=== PATIENT | female | born 1940 | race Caucasian/White ===

== ENCOUNTER 2019-07-05 17:18 | Emergency (ER) | payer MEDICARE, OTHER ==
[~2019-07-05] VITALS: Ht 149.9 cm; Wt 58.5 kg
[~2019-07-05 17:18] MED LIST: BRIMONIDINE TAR10 ML OD; FLOVENT DISKU250 MCG INH; LEVOTHYROXINE75 MCG PO; MACROBID 100 M100 MG PO; PRILOSEC20 MG PO; PYRIDIUM200 MG PO
[2019-07-05] MEDS ORDERED: ERYTHROMYCIN1 GM OS (20:07)
== END 2019-07-05 20:16 | disposition home or self-care (01) ==
LOC: ED 17:18
DX: H11.32 Conjunctival hemorrhage, left eye (principal); E03.9 Hypothyroidism, unspecified; Z91.041 Radiographic dye allergy status; Z88.8 Allergy status to other drugs, medicaments and biological substances; Z88.1 Allergy status to other antibiotic agents; Z79.899 Other long term (current) drug therapy
CPT/HCPCS: 99283

== ENCOUNTER 2020-05-06 18:54 | Emergency (ER) | payer MEDICARE, OTHER ==
[~2020-05-06] VITALS: Ht 149.9 cm; Wt 59.0 kg
--- OUTSIDE RECORDS SUMMARY | ~2020-05-06 | XMS | Encounter Summary ---
Demographics + + + | Address | [address] | | | [place] [address] | + + + | Home Phone | | + + + | Preferred Language | Unknown | + + + | Marital Status | | + + + | Christian Affiliation | NRP | + + + | Race | White | + + + | Ethnic Group | Not or | + + + Author + + + | Author | [facility] | + + + | Organization | [facility] | + + + | Address | Unknown | + + + | Phone | Unavailable | + + + Support + + + + + | Name | Relationship | Address | Phone | + + + + + | Andrzej Campos | ECON | [address] | | | | | [place] | | | | | [address] | | + + + + + Care Team Providers + +------+ + | Care Bar Waiter/Waitress Name | Role | Phone | + +------+ + | Carlo Soto MD | PCP | | + +------+ + Reason for Visit + + + | Reason | Comments | + + + | Need To Cancel | | | Appointment | | + + + Encounter Details +--------+ + + + + | Date | Type | Department | Care Team | Description | +--------+ + + + + | 02/23/ | Telephone | [facility] | Gail Peralta, | Need To Cancel | | 2015 | | [facility] | ,PhD [address] | Appointment | | | | at [facility] [address] | [address] [place], [place] | | | | | Av Mailcode: [facility] | [address] | | | | | [facility] | [phone] | | | | | and [facility], | | | | | | Building | | | | | | Floor [facility] [place] | | | | | | [address] | | | | | | [phone] | | | +--------+ + + + + Social History + +-------+ +--------+------+ | Tobacco Use | Types | Packs/Day | Years | Date | | | | | Used | | + +-------+ +--------+------+ | Never Smoker | | | | | + +-------+ +--------+------+ + +---+---+---+ | Smokeless Tobacco: | | | | | Never Used | | | | + +---+---+---+ + + +---------+ + | Alcohol Use | Drinks/Week | oz/Week | Comments | + + +---------+ + | Yes | 7 Glasses of wine | 7.0 | | + + +---------+ + + + + | Sex Assigned at | Date Recorded | | | | + + + | Not on file | | + + + + + + + | Job Start Date | Occupation | Industry | + + + + | Not on file | Not on file | Not on file | + + + + + + + + | Travel History | Travel Start | Travel End | + + + + + + | No recent travel history available. | + + documented as of this encounter Plan of Treatment +--------+---------+ + + + | Date | Type | Specialty | Care Team | Description | +--------+---------+ + + + | 06/17/ | Office | Ophthalmology | Jeferson Villarreal MD | | | 2020 | Visit | | [address] | | | | | | [address] | | | | | | [place], [place] | | | | | | [address] | | | | | | [phone] | | | | | | | | +--------+---------+ + + + | 07/29/ | Office | Ophthalmology | Jeferson Villarreal MD | | | 2020 | Visit | | [address] | | [address] | [address] | | | | | | [place] | | | | | | [address] | | | | | | [phone] | | | | | | | | +--------+---------+ + + + documented as of this encounter Visit Diagnoses Not on filedocumented in this encounter"
--- OUTSIDE RECORDS SUMMARY | ~2020-05-06 | XMS | Encounter Summary ---
Demographics + + + | Address | [address] | | | [place] [address] | + + + | Home Phone | | + + + | Preferred Language | Unknown | + + + | Marital Status | | + + + | Denominational Affiliation | NRP | + + + | Race | White | + + + | Ethnic Group | Not or | + + + Author + + + | Author | [facility] | + + + | Organization | [facility] | + + + | Address | Unknown | + + + | Phone | Unavailable | + + + Support + + + + + | Name | Relationship | Address | Phone | + + + + + | Andrzej Campos | ECON | [address] [facility] [facility] | | | | | [place] | | | | | [address] | | + + + + + Care Team Providers + +------+ + | Care Lead Tinner Name | Role | Phone | + +------+ + | Carlo Soto MD | PCP | | + +------+ + Encounter Details +--------+ + + + + | Date | Type | Department | Care Team | Description | +--------+ + + + + | 08/27/ | Document-Sc | Health Information | Unknown . | | | 2016 | anned | Services [id number] | | | [address] | | | | | | Mailcode: [id number] | | | | | | [facility] | | | | | | [place], [place] | | | | | | [address] | | | | | | [phone] | | | +--------+ + + + [...] | Jeferson Villarreal MD | | | 2019 | Visit | | [address] | | | | | | [address] | | | | | | [place] | | | | | | [address] | | | | | | [phone] | | | | | | | | +--------+---------+ + + + | 07/29/ | Office | Ophthalmology | Jeferson Villarreal MD | | | 2020 | Visit | | [address] | | | | | | [place], [place] | | | | | | [address] | | | | | | [phone] | | | | | | | | +--------+---------+ + + + documented as of this encounter Visit Diagnoses Not on filedocumented in this encounter"
--- OUTSIDE RECORDS SUMMARY | ~2020-05-06 | XMS | Encounter Summary ---
Demographics + + + | Address | [address] | | | [place] [address] | + + + | Home Phone | | + + + | Preferred Language | Unknown | + + + | Marital Status | | + + + | Pentecostal Affiliation | NRP | + + + [...] | Andrzej Campos | ECON | [address] [facility] | | | | | [place] | | | | | [address] | | + + + + + Care Team Providers + +------+ + | Care Woods Rider Name | Role | Phone | + +------+ + | Carlo Soto MD | PCP | | + +------+ + Encounter Details +--------+ + + + + | Date | Type | Department | Care Team | Description | +--------+ + + + + | 10/19/ | Hospital | Registration [facility] | | | | 2015 | Encounter | [address] | | | | | | [place], | | | | | | [place] [address] | | | +--------+ + + + + Social History + +-------+ +--------+------+ | Tobacco Use | Types | Packs/Day | Years | Date | | | | | Used | | + +-------+ +--------+------+ | Never Assessed | | | | | + +-------+ +--------+------+ + + + | Sex Assigned at [...] + + documented as of this encounter Medications at Time of Discharge + + + +---------+ + + | Medication | Sig | Dispensed | Refills | Start | End Date | | | | | | Date | | + + + +---------+ + + | diclofenac 50 mg | Take 50 mg by mouth | | 0 | | | | oral tablet | two times daily. | | | | | + + + +---------+ + + | levothyroxine 75 | | | 0 | 08/10/20 | | | mcg oral tablet | | | | 15 | | + + + +---------+ + + documented as of this encounter [...] [address] | | | | | | [place] | | | | | | [address] | | | | | | [phone] | | | | | | | | +--------+---------+ + + + | 07/29/ | Office | Ophthalmology | Jeferson Villarreal MD | | | 2019 | Visit | | [address] | | | | | | [address] | | | | | | [place] [place], [place] | | | | | | [address] | | | | | | [phone] | | | | | | | | +--------+---------+ + + + documented as of this encounter Visit Diagnoses Not on filedocumented in this encounter"
--- OUTSIDE RECORDS SUMMARY | ~2020-05-06 | XMS | Encounter Summary ---
Demographics + + + | Address | [address] | | | [place] [address] | + + + | Home Phone | | + + + | Preferred Language | Unknown | + + + | Marital Status | | + + + | Druze Affiliation | NRP | + + + | Race | White | + + + | Ethnic Group | Not or | + + + Author + + + | Author | [facility] | + + + | Organization | [facility] | + + + | Address | Unknown | + + + | Phone | Unavailable | + + + Support + + + + + | Name | Relationship | Address | Phone | + + + + + | Andrzej Campos | ECON | [address] | | | | | [place] | | | | | [id number] | | + + + + + Care Team Providers + +------+ + | Care Commercial Loan Analyst Name | Role | Phone | + +------+ + | Carlo Soto MD | PCP | | + +------+ + Reason for Visit + + + | Reason | Comments | + + + | Follow-up visit | | + + + | AMD - Age-related | | | macular degeneration | | + + + Benefits Check (Routine) +--------+--------+ + + + + | Status | Reason | Specialty | Diagnoses / | Referred By | Referred To | | | | | Procedures | Contact | Contact | +--------+--------+ + + + + | Closed | | Ophthalmology | | Non-[facility] | Phil, | | | | | | Epic Dept | MD Horace | | | | | | | [address] | | | [address] | [address] | | | | | | | [place], [place] | | | | | | | [address] | | | | | | | Phone: | | | | | | | [phone] | | | | | | | Fax: | | | | | | | [phone] | +--------+--------+ + + + + Encounter Details +--------+---------+ + + + | Date | Type | Department | Care Team | Description | +--------+---------+ + + + | 01/10/ | Office | [facility] | Horace Tan MD | Nonexudative | | 2018 | Visit | [facility] | [address] | age-related macular | | | | [place] [address] | [address] | degeneration, | | | | [facility] | [place], [place] | bilateral, | | | | Clinic [place], | [address] | intermediate dry | | | | [place] [address] | [phone] | stage (Primary Dx); | | | | [phone] | | Exudative | | | | | | age-related macular | | | | | | degeneration of left | | | | | | eye with active | | | | |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 | | | | | | neovascularization | | | | | | ([facility]) | +--------+---------+ + + + Social History + +-------+ [...] + + documented as of this encounter Patient Instructions Patient Instructions Horace Tan MD - 01/10/2018 10:15 AM PSTReturn to clinic before sc hedule follow up for decreasing vision or distortion in your vision. Use AREDS or AREDS 2 vitamins as directed. Do not smoke. Use sunglasses when outdoors. Use Amsler Grid Your doctor has recommended using an Amsler grid to monitor your vision. Finding distortion in your vision with this grid can help catch disease before more damage is done to your eye . Often treating the disease at this stage can help save your vision. Use your usual reading glasses Hold this at your usual reading distance (around 14 inches from your face) Cover one eye (must test one eye at a time!) Fix your gaze on the black hopland in the center of the grid. Use your peripheral vision to examine (without looking around) whether any of the square s are crooked, missing, or blurred. Blink your eyes to make sure that your eyes are not dry (eyes that are drying out can ca use temporary changes in the Amsler grid). Use it every day. Call your doctor if you see any changes. documented in this encounter Progress Notes Horace Tan MD - 01/10/2018 10:15 AM PST [facility] Progress Note 01/10/2018 Assessment & Plan: 77 y.o. 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 Chief Complaint: Follow-up visit AMD - Age-related macular degeneration HPI: Dramatic change in distortion OD 2 weeks ago. OS stable.No new floaters or flashes of light. Current Outpatient Prescriptions (Ophthalmic Medications) Medication Sig CARBOXYMETHYLCELL/HYPROMELLOSE (GENTEAL GEL OPHT) Instill in eye as needed. COMBIGAN Instill into both eyes two times daily. PROPYLENE GLYCOL (SYSTANE BALANCE OPHT) Instill in eye as needed (BID to QID daily). Current Outpatient Prescriptions (Other) Medication Sig atorvastatin CHLORPHENIRAMINE MALEATE (CHLOR-TRIMETON ORAL) Take by mouth as needed. diclofenac potassium Take 50 mg by mouth two times daily. diphenhydrAMINE Take 25 mg by mouth as needed. DOXYLAMINE SUCCINATE ORAL Take by mouth as needed. fluticasone Inhale 1 puff by mouth as needed. levothyroxine metFORMIN Take by mouth. MULTIVITAMIN ORAL Take by mouth. RANITIDINE HCL (ZANTAC ORAL) Take by mouth once daily at bedtime. VIT A/C/E AC/ZNOX/CUPRIC OXIDE (EYE VITAMIN AND MINERALS ORAL) Take 1 tablet by mouth o nce daily. [employer] Capsules Past Medical History: Diagnosis Date Cataract Diabetes (HCC) Glaucoma Hypothyroid Osteoarthritis Osteoporosis Past Surgical History Procedure Laterality Date Caesarean section x3 Excision of gall bladder Family History Problem Relation Heart Disease Mother Macular degeneration Father Heart Disease Father Heart Disease Brother Cancer Neg Hx Social History Occupational History Not on file. Social History Main Topics Smoking status: Never Smoker Smokeless tobacco: Never Used Alcohol use 4.2 oz/week 7 Glasses of wine per week Drug use: No Sexual activity: Not on file Examination: See Ophthalmology Module Attestations: The lawn care technician, 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, is responsible for performing the f ollowing sections: RFV, ROS, PMH, PSH, SocHx, FH, Med list, Base Ophth Exam. The attending physician is responsible for the entire content of the note and has personall y performed the HPI and the physical examination HORACE TAN MD docum ented in this encounter Plan of Treatment +--------+---------+ + + + | Date | Type | Specialty | Care Team | Description | +--------+---------+ + + + | 06/17/ | Office | Ophthalmology | Horace Tan MD | | | 2019 | Visit | | [address] | | | | | | [address] | | | | | | [facility], [place] | | | | | | [address] | | | | | | [phone] | | | | | | | | +--------+---------+ + + + | 07/29/ | Office | Ophthalmology | Horace Tan MD | | | 2019 | Visit | | [address] | | | | | | [address] | | | | | | [facility], [place] | | | | | | [address] | | | | | | [phone] | | | | | | | | +--------+---------+ + + + documented as of this encounter Procedures + +--------+ + + + | Procedure Name | Priori | Date/Time | Associated Diagnosis | Comments | | | ty | | | | + +--------+ + + + | AVASTIN INJ - OS - | Routin | 01/10/2018 | Exudative | Results for this | | LEFT EYE | e | 11:46 AM | age-related macular | procedure are in the | | | | PST | degeneration of left | results section. | | | | | eye with active | | | | |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 | | | | | | neovascularization | | | | | | (HCC) | | + +--------+ + + + | OCT, RETINA | Routin | 01/10/2018 | Nonexudative | Results for this | | | e | 11:07 AM | age-related macular | procedure are in the | | | | PST | degeneration, | results section. | | | | | bilateral, | | | | | | intermediate dry | | | | | | stage | | + +--------+ + + + documented in this encounter Results OCT, RETINA (04/29/2020 3:56 PM PDT) + + + | Narrative | Performed At | + + + | [facility] | [facility] | | DocumentationRight EyeQuality: good Central macular thickness: | [facility] | | 272 Segmentation: accurate Left EyeQuality: good Central | | | macular thickness: 294 Segmentation: accurate Provider | | | DocumentationRight EyeContour: central atrophy Retinal findings: | | | RPE irregularity, Drusen Left EyeFluid and related findings: no | | | fluid, better Retinal findings: RPE irregularity, Drusen | | | | | |Left Eye | | |Quality: good | | | | | |Central macular thickness: 294 | | |Segmentation: accurate | | | | | | | | |Provider Documentation | | |Right Eye | | |Contour: central atrophy | | |Retinal findings: RPE irregularity, Drusen | | | | | | | | |Left Eye | | |Fluid and related findings: no fluid, better | | |Retinal findings: RPE irregularity, Drusen | | + + + + + + + + | Performing | Address | City/State/Zipcode | Phone Number | | Organization | | | | + + + + + | [facility] | [address] | [place] [address] | | | [facility] | [place]. | | | + + + + + OCT, RETINA (04/01/2020 11:32 AM PDT) + + + | Narrative | Performed At | + + + | [facility] | [facility] | | DocumentationRight EyeQuality: good Central macular thickness: | [facility] | | 324 Segmentation: accurate Left EyeQuality: good Central | | | macular thickness: 321 Segmentation: accurate Provider | | | DocumentationRight EyeContour: central atrophy Retinal findings: | | | RPE irregularity, Drusen Left EyeFluid and related findings: | | | SRF, worse Retinal findings: RPE irregularity, Drusen | | | | | |Left Eye | | |Quality: good | | | | | |Central macular thickness: 321 | | |Segmentation: accurate | | | | | | | | |Provider Documentation | | |Right Eye | | |Contour: central atrophy | | |Retinal findings: RPE irregularity, Drusen | | | | | | | | |Left Eye | | |Fluid and related findings: SRF, worse | | |Retinal findings: RPE irregularity, Drusen | | + + + + + + + + | Performing | Address | City/State/Zipcode | Phone Number | | Organization | | | | + + + + + | [facility] | [address] | [place] [address] | | | [facility] | [address]. | | | + + + + + OCT, RETINA (11/13/2019 12:16 PM PST) + + + | Narrative | Performed At | + + + | [facility] | [facility] | | DocumentationRight EyeCentral macular thickness: 274 Left | [facility] | | EyeCentral macular thickness: 321 Provider DocumentationRight | | | EyeContour: no central thickening, central atrophy Fluid and | | | related findings: no fluid, unchanged Retinal findings: | | | Subretinal scar Left EyeContour: no central thickening Fluid and | | | related findings: SRF, worse, IRF Retinal findings: Subretinal | | | scar Comments: early ORT formation, minimal SRF/IRF today | | | | | |Provider Documentation | | |Right Eye | | |Contour: no central thickening, central atrophy | | |Fluid and related findings: no fluid, unchanged | | |Retinal findings: Subretinal scar | | | | | | | | |Left Eye | | |Contour: no central thickening | | |Fluid and related findings: SRF, worse, IRF | | |Retinal findings: Subretinal scar | | |Comments: early ORT formation, minimal SRF/IRF today | | + + + + + + + + | Performing | Address | City/State/Zipcode | Phone Number | | Organization | | | | + + + + + | [facility] | [address] | [place] [address] | | | [facility]STITUTE | [place]. | | | + + + + + OCT, RETINA (09/18/2019 1:33 PM PST) + + + | Narrative | Performed At | + + + | [facility] | [facility] | | DocumentationRight EyeCentral macular thickness: 239 Left | [facility] | | EyeCentral macular thickness: 261 Provider DocumentationRight | | | EyeContour: no central thickening, central atrophy Fluid and | | | related findings: no fluid, unchanged Retinal findings: | | | Subretinal scar Left EyeContour: no central thickening Fluid and | | | related findings: better, no fluid Retinal findings: Subretinal | | | scar | | | | | |Provider Documentation | | |Right Eye | | |Contour: no central thickening, central atrophy | | |Fluid and related findings: no fluid, unchanged | | |Retinal findings: Subretinal scar | | | | | | | | |Left Eye | | |Contour: no central thickening | | |Fluid and related findings: better, no fluid | | |Retinal findings: Subretinal scar | | + + + + + + + + | Performing | Address | City/State/Zipcode | Phone Number | | Organization | | | | + + + + + | [facility] | [address] | [place] [address] | | | [facility] | [place]. | | | + + + + + OCT, RETINA (07/31/2019 4:49 PM PDT) + + + | Narrative | Performed At | + + + | [facility] | [facility] | | DocumentationRight EyeCentral macular thickness: 261 Left | [facility] | | EyeCentral macular thickness: 260 Provider DocumentationRight | | | EyeContour: no central thickening, central atrophy Fluid and | | | related findings: no fluid, unchanged Retinal findings: | | | Subretinal scar Left EyeContour: no central thickening Fluid and | | | related findings: better, no fluid Retinal findings: Subretinal | | | scar | | | | | |Provider Documentation | | |Right Eye | | |Contour: no central thickening, central atrophy | | |Fluid and related findings: no fluid, unchanged | | |Retinal findings: Subretinal scar | | | | | | | | |Left Eye | | |Contour: no central thickening | | |Fluid and related findings: better, no fluid | | |Retinal findings: Subretinal scar | | + + + + + + + + | Performing | Address | City/State/Zipcode | Phone Number | | Organization | | | | + + + + + | [facility] | [address] | [place] [address] | | | INSTITUTE | [address] | | | + + + + + OCT, RETINA (05/29/2019 2:54 PM PDT) + + + | Narrative | Performed At | + + + | [facility] | [facility] | | DocumentationRight EyeCentral macular thickness: 245 Left | [facility] | | EyeCentral macular thickness: 320 Provider DocumentationRight | | | EyeContour: no central thickening Fluid and related findings: | | | better, no fluid Retinal findings: Subretinal scar Left | | | EyeContour: no central thickening Fluid and related findings: | | | IRF, worse Retinal findings: Subretinal scar | | | | | | | | |Provider Documentation | | |Right Eye | | |Contour: no central thickening | | |Fluid and related findings: better, no fluid | | |Retinal findings: Subretinal scar | | | | | | | | |Left Eye | | |Contour: no central thickening | | |Fluid and related findings: IRF, worse | | |Retinal findings: Subretinal scar | | + + + + + + + + | Performing | Address | City/State/Zipcode | Phone Number | | Organization | | | | + + + + + | [facility] | [address] | [place] [address] | | | [facility] | [address]. | | | + + + + + OCT, RETINA (05/01/2019 11:49 AM PDT) + + + | Narrative | Performed At | + + + | [facility] | [facility] | | DocumentationRight EyeCentral macular thickness: 245 Left | [facility] | | EyeCentral macular thickness: 320 Provider DocumentationRight | | | EyeContour: no central thickening Fluid and related findings: | | | SRF, better Retinal findings: Subretinal scar Left EyeContour: | | | no central thickening Fluid and related findings: IRF, worse | | | Retinal findings: Subretinal scar | | | | | | | | |Provider Documentation | | |Right Eye | | |Contour: no central thickening | | |Fluid and related findings: SRF, better | | |Retinal findings: Subretinal scar | | | | | | | | |Left Eye | | |Contour: no central thickening | | |Fluid and related findings: IRF, worse | | |Retinal findings: Subretinal scar | | + + + + + + + + | Performing | Address | City/State/Zipcode | Phone Number | | Organization | | | | + + + + + | [facility] | [address] | [place] [address] | | | [facility] | [address]. | | | + + + + + HEATHER FLORES (03/13/2019 11:29 AM PDT) + + + | Narrative | Performed At | + + + | [facility] | [facility] | | DocumentationRight EyeCentral macular thickness: 238 Left | [facility] | | EyeCentral macular thickness: 284 Provider DocumentationRight | | | EyeContour: no central thickening Fluid and related findings: | | | sub-RPE fluid, SRF, worse Retinal findings: Subretinal scar Left | | | EyeContour: no central thickening Fluid and related findings: | | | IRF, unchanged Retinal findings: Subretinal scar | | | | | | | | |Provider Documentation | | |Right Eye | | |Contour: no central thickening | | |Fluid and related findings: sub-RPE fluid, SRF, worse | | |Retinal findings: Subretinal scar | | | | | | | | |Left Eye | | |Contour: no central thickening | | |Fluid and related findings: IRF, unchanged | | |Retinal findings: Subretinal scar | | + + + + + + + + | Performing | Address | City/State/Zipcode | Phone Number | | Organization | | | | + + + + + | [facility] | [address] | [place] [address] | | | [facility]STITUTE | [place]. | | | + + + + + OCT, RETINA (01/30/2019 11:39 AM PDT) + + + | Narrative | Performed At | + + + | [facility] | [facility] | | DocumentationRight EyeCentral macular thickness: 289 Left | [facility] | | EyeCentral macular thickness: 276 Provider DocumentationRight | | | EyeContour: no central thickening Fluid and related findings: | | | sub-RPE fluid, better Retinal findings: Subretinal scar Left | | | EyeContour: no central thickening Fluid and related findings: | | | IRF, unchanged Retinal findings: Subretinal scar | | | | | | | | |Provider Documentation | | |Right Eye | | |Contour: no central thickening | | |Fluid and related findings: sub-RPE fluid, better | | |Retinal findings: Subretinal scar | | | | | | | | |Left Eye | | |Contour: no central thickening | | |Fluid and related findings: IRF, unchanged | | |Retinal findings: Subretinal scar | | + + + + + + + + | Performing | Address | City/State/Zipcode | Phone Number | | Organization | | | | + + + + + | [facility] | [address] | [place] [address] | | | [facility] | [place]. | | | + + + + + OCT, RETINA (11/14/2018 11:44 AM PST) + + + | Narrative | Performed At | + + + | [facility] | [facility] | | DocumentationRight EyeCentral macular thickness: 259 Left | [facility] | | EyeCentral macular thickness: 264 Provider DocumentationRight | | | EyeContour: no central thickening Fluid and related findings: | | | sub-RPE fluid, better Left EyeContour: no central thickening | | | Fluid and related findings: IRF, worse | | |Central macular thickness: 264 | | | | | | | | |Provider Documentation | | |Right Eye | | |Contour: no central thickening | | |Fluid and related findings: sub-RPE fluid, better | | | | | | | | |Left Eye | | |Contour: no central thickening | | |Fluid and related findings: IRF, worse | | + + + + + + + + | Performing | Address | City/State/Zipcode | Phone Number | | Organization | | | | + + + + + | [facility] | [address] | [place] [address] | | | [facility]STITUTE | [place]. | | | + + + + + OCT, RETINA (09/26/2018 8:56 AM PST) + + + | Narrative | Performed At | + + + | [facility] | [facility] | | DocumentationRight EyeCentral macular thickness: 261 Left | [facility] | | EyeCentral macular thickness: 297 Provider DocumentationRight | | | EyeContour: no central thickening Fluid and related findings: | | | sub-RPE fluid, better Left EyeContour: no central thickening | | | Fluid and related findings: IRF, better | | |Central macular thickness: 297 | | | | | | | | |Provider Documentation | | |Right Eye | | |Contour: no central thickening | | |Fluid and related findings: sub-RPE fluid, better | | | | | | | | |Left Eye | | |Contour: no central thickening | | |Fluid and related findings: IRF, better | | + + + + + + + + | Performing | Address | City/State/Zipcode | Phone Number | | Organization | | | | + + + + + | [facility] | [address] | [place] [address] | | | [facility]STITUTE | [place]. | | | + + + + + OCT, RETINA (08/29/2018 12:07 PM PDT) + + + | Narrative | Performed At | + + + | [facility] | [facility] | | DocumentationRight EyeCentral macular thickness: 279 Left | [facility] | | EyeCentral macular thickness: 284 Provider DocumentationRight | | | EyeContour: no central thickening Fluid and related findings: | | | sub-RPE fluid, SRF, worse Left EyeContour: no central thickening | | | Fluid and related findings: IRF, worse | | |Central macular thickness: 284 | | | | | | | | |Provider Documentation | | |Right Eye | | |Contour: no central thickening | | |Fluid and related findings: sub-RPE fluid, SRF, worse | | | | | | | | |Left Eye | | |Contour: no central thickening | | |Fluid and related findings: IRF, worse | | + + + + + + + + | Performing | Address | City/State/Zipcode | Phone Number | | Organization | | | | + + + + + | [facility] | [address] | [place] [address] | | | INSTITUTE | [address] | | | + + + + + OCT, RETINA (08/01/2018 11:49 AM PDT) + + + | Narrative | Performed At | + + + | [facility] | [facility] | | DocumentationRight EyeCentral macular thickness: 273 Left | [facility] | | EyeCentral macular thickness: 276 Provider DocumentationRight | | | EyeContour: no central thickening Fluid and related findings: | | | sub-RPE fluid, unchanged Left EyeContour: no central thickening | | | Fluid and related findings: SRF, better | | |Central macular thickness: 276 | | | | | | | | |Provider Documentation | | |Right Eye | | |Contour: no central thickening | | |Fluid and related findings: sub-RPE fluid, unchanged | | | | | | | | |Left Eye | | |Contour: no central thickening | | |Fluid and related findings: SRF, better | | + + + + + + + + | Performing | Address | City/State/Zipcode | Phone Number | | Organization | | | | + + + + + | [facility] | [address] | [place] [address] | | | [facility] | [place]. | | | + + + + + OCT, RETINA (06/27/2018 11:58 AM PDT) + + + | Narrative | Performed At | + + + | [facility] | [facility] | | DocumentationRight EyeCentral macular thickness: 279 Left | [facility] | | EyeCentral macular thickness: 286 Provider DocumentationRight | | | EyeContour: no central thickening, noncentral thickening, | | | noncentral atrophy Fluid and related findings: no fluid Left | | | EyeContour: central thickening, noncentral atrophy Fluid and | | | related findings: IRF, worse | | | | | | | | |Provider Documentation | | |Right Eye | | |Contour: no central thickening, noncentral thickening, noncentral | | |atrophy | | |Fluid and related findings: no fluid | | | | | | | | |Left Eye | | |Contour: central thickening, noncentral atrophy | | |Fluid and related findings: IRF, worse | | + + + + + + + + | Performing | Address | City/State/Zipcode | Phone Number | | Organization | | | | + + + + + | [facility] | [address] | [place] [address] | | | [facility]STITUTE | [place]. | | | + + + + + OCT, RETINA (05/02/2018 11:32 AM PDT) + + + | Narrative | Performed At | + + + | [facility] | [facility] | | DocumentationRight EyeCentral macular thickness: 242 Left | [facility] | | EyeCentral macular thickness: 279 Provider DocumentationRight | | | EyeFluid and related findings: no fluid, sub-RPE fluid Left | | | EyeFluid and related findings: no fluid, sub-RPE fluid, unchanged | | |Left Eye | | |Central macular thickness: 279 | | | | | | | | |Provider Documentation | | |Right Eye | | |Fluid and related findings: no fluid, sub-RPE fluid | | | | | | | | |Left Eye | | |Fluid and related findings: no fluid, sub-RPE fluid, unchanged | | + + + + + + + + | Performing | Address | City/State/Zipcode | Phone Number | | Organization | | | | + + + + + | [facility] | [address] | [place] [address] | | | [facility] | [place]. | | | + + + + + OCT, RETINA (03/28/2018 11:37 AM PDT) + + + | Narrative | Performed At | + + + | [facility] | [facility] | | DocumentationRight EyeCentral macular thickness: 240 Left | [facility] | | EyeCentral macular thickness: 284 Provider DocumentationRight | | | EyeContour: no central thickening Fluid and related findings: no | | | fluid Left EyeContour: no central thickening Fluid and related | | | findings: SRF, better | | |Central macular thickness: 284 | | | | | | | | |Provider Documentation | | |Right Eye | | |Contour: no central thickening | | |Fluid and related findings: no fluid | | | | | | | | |Left Eye | | |Contour: no central thickening | | |Fluid and related findings: SRF, better | | + + + + + + + + | Performing | Address | City/State/Zipcode | Phone Number | | Organization | | | | + + + + + | [facility] | [address] | [place] [address] | | | [facility]STITUTE | [place]. | | | + + + + + OCT, RETINA (03/28/2018 10:49 AM PDT) + + + | Narrative | Performed At | + + + | [facility] | [facility] [facility] | | DocumentationRight EyeCentral macular thickness: 240 Left | [facility] | | EyeCentral macular thickness: 284 Provider DocumentationRight | | | EyeFluid and related findings: no fluid, sub-RPE fluid Left | | | EyeFluid and related findings: SRF, better, sub-RPE fluid | | |Left Eye | | |Central macular thickness: 284 | | | | | | | | |Provider Documentation | | |Right Eye | | |Fluid and related findings: no fluid, sub-RPE fluid | | | | | | | | |Left Eye | | |Fluid and related findings: SRF, better, sub-RPE fluid | | + + + + + + + + | Performing | Address | City/State/Zipcode | Phone Number | | Organization | | | | + + + + + | [facility] | [address] | [place] [address] | | | [facility]STITUTE | [place]. | | | + + + + + OCT, RETINA (02/14/2018 3:11 PM PDT) + + + | Narrative | Performed At | + + + | Provider | [facility] | | DocumentationRight EyeContour: no central thickening Fluid and | [facility] | | related findings: no fluid Retinal findings: Drusen, RPE | | | irregularity Left EyeContour: no central thickening Fluid and | | | related findings: no fluid, better Retinal findings: Drusen, RPE | | | irregularity | | | | | |Left Eye | | |Contour: no central thickening | | |Fluid and related findings: no fluid, better | | |Retinal findings: Drusen, RPE irregularity | | + + + + + + + + | Performing | Address | City/State/Zipcode | Phone Number | | Organization | | | | + + + + + | [facility] | [address] | [place] [address] | | | INSTITUTE | [place]. | | | + + + + + AVASTIN INJECTION - OS - LEFT EYE (01/10/2018 11:46 AM PST) + + + | Narrative | Performed At | + + + | Pre-Procedure | | | Procedures, alternatives and risks discussed with patient. Questions | | | answered., confirmed correct patient, procedure, site and consent. | | | | | | | | | Anesthesia | | | Anesthesia: subconjunctival | | | Anesthetic Medication: Lidocaine 1% | | | | | | | | | Procedure | | | Preparation: betadine to ocular surface, eyelid speculum | | | | | | Needle: 30g | | | | | | | | | Injection: 1.25 mg bevacizumab 1.25 mg/0.05 mL | | | [facility]: [id number] | | | Lot: [id number]) | | | Expiration Date: 02/20/2018 | | | Route: intravitreal | | | Site: Left Eye | | | | | | General Details | | | Estimated blood loss: none | | | | | | | | | Post Op | | | Post procedure assessment: visual acuity at least count fingers, eye | | | rinsed, patient tolerated procedure well | | + + + OCT, RETINA (01/10/2018 11:07 AM PST) + + + | Narrative | Performed At | + + + | [facility] | [facility] | | DocumentationRight EyeCentral macular thickness: 286 Left | [facility] | | EyeCentral macular thickness: 502 Provider DocumentationRight | | | EyeFluid and related findings: sub-RPE fluid, unchanged, no fluid | | | Retinal findings: Drusen Left EyeFluid and related findings: | | | IRF, SRF, worse Retinal findings: Drusen | | |Central macular thickness: 502 | | | | | | | | |Provider Documentation | | |Right Eye | | |Fluid and related findings: sub-RPE fluid, unchanged, no fluid | | |Retinal findings: Drusen | | | | | | | | |Left Eye | | |Fluid and related findings: IRF, SRF, worse | | |Retinal findings: Drusen | | + + + + + + + + | Performing | Address | City/State/Zipcode | Phone Number | | Organization | | | | + + + + + | [facility] | [address] | [place] [address] | | | INSTITUTE | [place]. 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
--- OUTSIDE RECORDS SUMMARY | ~2020-05-06 | XMS | Encounter Summary ---
Demographics + + + | Address | [address] | | | [place] [address] | + + + | Home Phone | | + + + | Preferred Language | Unknown | + + + | Marital Status | | + + + | Quaker Affiliation | NRP | + + + | Race | White | + + + | Ethnic Group | Not or | + + + Author + + + | Author | [facility] | + + + | Organization | [facility] | + + + | Address | Unknown | + + + | Phone | Unavailable | + + + Support + + + + + | Name | Relationship | Address | Phone | + + + + + | Andrzej Campos | ECON | [address] | | | | | [place] | | | | | [address] | | + + + + + Care Team Providers + +------+ + | Care Fermentation Operator Name | Role | Phone | + +------+ + | Carlo Soto MD | PCP | | + +------+ + Reason for Visit + + + | Reason | Comments | + + + | Follow-up visit | | + + + | AMD - Age-related | | | macular degeneration | | + + + Benefits Check (Routine) + +--------+ + + + + | Status | Reason | Specialty | Diagnoses / | Referred By | Referred To | | | | | Procedures | Contact | Contact | + +--------+ + + + + | Authorized | | Ophthalmology | | Non-[facility] | Phil, | | | | | | Epic Dept | MD Jeferson | | | | | | | [address] | | | | | [address] | | | | | | | [place] | | | | | | | [place], [place] | | | | | | | [address] | | | | | | | Phone: | | | | | | | [phone] | | | | | | | Fax: | | | | | | | [phone] | + +--------+ + + + + Encounter Details +--------+---------+ + + + | Date | Type | Department | Care Team | Description | +--------+---------+ + + + | 01/01/ | Office | [facility] | Pete Hazel MD | Exudative | | 2019 | Visit | [facility] | [address] | age-related macular | | | | [address] | [address] | degeneration of both | | | | [facility] | [place], [place] | eyes with active | | | | [facility] [place], | [address]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 | | | | [place] [address] | [phone] | neovascularization | | | | [phone] | | ([facility]) (Primary Dx) | +--------+---------+ + + + Social History [...] + + documented as of this encounter Progress Notes Pete Hazel MD - 01/01/2020 11:00 AM PST [facility] Progress Note 01/01/2020 IMPRESSION/PLAN: 79 y.o. 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 Based on these findings [facility] Return in about 8 weeks (around 02/26/2020). CC: Follow-up visit AMD - Age-related macular degeneration HPI: Tonya Suresh is a 79 y.o. female Patient states that her vision is unchanged. No new floaters, distortions, or flashes of li ght. AKL confirmed. 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 Villarreal/ 06/27/2019 Dr. Ko Last Injection: OD: Avastin 03/13/19; OS: Eylea 7W POAG OU Procedure: Eylea OS (11/13/19 1226) Procedure: Eylea OS (09/18/19 1353) Procedure: Eylea OS (07/31/19 1706) Current Outpatient Medications (Ophthalmic Medications) Medication Sig CARBOXYMETHYLCELL/HYPROMELLOSE (GENTEAL GEL OPHT) Instill in eye as needed. COMBIGAN Instill into both eyes two times daily. PROPYLENE GLYCOL (SYSTANE BALANCE OPHT) Instill in eye as needed (BID to QID daily). Current Outpatient Medications (Other) Medication Sig atorvastatin CHLORPHENIRAMINE MALEATE (CHLOR-TRIMETON ORAL) Take by mouth as needed. diclofenac potassium Take 50 mg by mouth two times daily. diphenhydrAMINE Take 25 mg by mouth as needed. DOXYLAMINE SUCCINATE ORAL Take by mouth as needed. fluticasone propionate Inhale 1 puff by mouth as needed. levothyroxine lisinopriL metFORMIN Take by mouth. MULTIVITAMIN ORAL Take [...] Caesarean section x3 Excision of gall bladder EXAMINATION: Base Exam Visual Acuity (Snellen - Linear) Right Left Dist cc 20/100+1 20/60 Correction: Glasses Tonometry (Tonopen, 11:09 AM) Right Left Pressure 17 14 Dilation Both eyes: 2.5% Phenylephrine, 1.0% Mydriacyl @ 11:09 AM Neuro/Psych Oriented x3: Yes Mood/Affect: Normal Slit Lamp and Fundus Exam External Exam Right Left External Normal Normal Slit Lamp Exam Right Left Lids/Lashes MGD, lid notching MGD, lid notching Conjunctiva/Sclera White and quiet White and quiet Cornea limbal thinning/opacification at nasal and temporal limbus, more prominent temporal ly (about 3-3.5mm), no KED limbal thinning/opacification at nasal and temporal limbus, more prominent temporally (about 3-3.5mm), no KED Anterior Chamber Deep and quiet Deep and quiet Iris Normal Normal Lens 1+ NS, no PXE 1+ NS, no PXE Vitreous PVD PVD Fundus Exam Right Left Disc Normal Normal C/D Ratio 0.75 0.7 Macula cuticular drusen, RPE hyperplasia, early atrophy. No hemorrohage or fluid cuticula r drusen, no heme. Central pigmentation Vessels Normal Normal Periphery Normal Normal Attestations: The document management technician, 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, is responsible for performing the f ollowing sections: RFV, ROS, PMH, PSH, SocHx, FH, Med list, Base Ophth Exam. The attending eric meng is responsible for the entire content of the note and has personally performed the HPI and the physical examination Pete Hazel MD documented in this enc ounter Plan of Treatment +--------+---------+ + + + | Date | Type | Specialty | Care Team | Description | +--------+---------+ + + + | 06/17/ | Office | Ophthalmology | Jeferson Villarreal MD | | 2019 | Visit | | [address] | | | | | | [place], [place] | | | | | | [address] | | | | | | [phone] | | | | | | | | +--------+---------+ + + + | 07/29/ Office | Ophthalmology | Jeferson Villarreal MD | | | 2019 | Visit | | [address] | | | | | | [place], [place] | | | | | | [address] | | | | | | [phone] | | | | | | | | +--------+---------+ + + + documented as of this encounter Procedures + +--------+ + + + | Procedure Name | Priori | Date/Time | Associated Diagnosis | Comments | | | ty | | | | + +--------+ + + + | EYLEA INJ - OS - | Routin | 01/01/2020 | Exudative | Results for this | | LEFT EYE | e | 12:21 PM | age-related macular | procedure are in the | | | | PST | degeneration of both | results section. | | | | | eyes with active | | | | |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 | | | | | | neovascularization | | | | | | (HCC) | | + +--------+ + + + | OCT, RETINA | Routin | 01/01/2020 | Exudative | Results for this | | | e | 11:48 AM | age-related macular | procedure are in the | | | | PST | degeneration of both | results section. | | | | | eyes with active | | | | |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 | | | | | | neovascularization | | | | | | (HCC) | | + +--------+ + + + documented in this encounter Results EYLEA INJ - OS - LEFT EYE (01/01/2020 12:21 PM PST) + + + | Narrative | Performed At | + + + | | | | Pre-ProcedureProcedures, alternatives and risks discussed with | | | patient. Questions answered., confirmed correct patient, procedure, | | | site and consent. AnesthesiaAnesthesia: subconjunctival Anesthetic | | | Medication: Lidocaine 1% ProcedurePreparation: betadine to ocular | | | surface Needle: 30g Injection: 2 mg aflibercept 2 mg/0.05 mL | | | [facility]: [id number], Lot: [id number], Expiration date: 10/25/2020 | | | Route: intravitreal, Site: Left Eye Estimated blood loss: none | | | Post OpPost procedure assessment: optic nerve perfusion inspected, eye | | | rinsed, patient tolerated procedure well Patient reported pain is 0 | | | on a 0-10 scale. | | |Preparation: betadine to ocular surface | | | | | |Needle: 30g | | | | | | | | |Injection: | | |2 mg aflibercept 2 mg/0.05 mL | | | NDC: 45414-191-28, Lot: [id number], Expiration date: 10/25/2020 | | | Route: intravitreal, Site: Left Eye | | | | | |Estimated blood loss: none | | | | | | | | |Post Op | | |Post procedure assessment: optic nerve perfusion inspected, eye rinsed, | | |patient tolerated procedure well | | |Patient reported pain is 0 on a 0-10 scale. | | + + + OCT, RETINA (01/01/2020 11:48 AM PST) + + + | Narrative | Performed At | + + + | Careers Adviser | [facility] | | DocumentationRight EyeQuality: good Central macular thickness: | [facility] | | 270 Segmentation: accurate Left EyeQuality: good Central | | | macular thickness: 283 Segmentation: accurate Provider | | | DocumentationRight EyeContour: central atrophy Retinal findings: | | | RPE irregularity, Drusen Left EyeFluid and related findings: no | | | fluid, unchanged Retinal findings: RPE irregularity, Drusen | | | | | |Left Eye | | |Quality: good | | | | | |Central macular thickness: 283 | | |Segmentation: accurate | | | | | | | | |Provider Documentation | | |Right Eye | | |Contour: central atrophy | | |Retinal findings: RPE irregularity, Drusen | | | | | | | | |Left Eye | | |Fluid and related findings: no fluid, unchanged | | |Retinal findings: RPE irregularity, Drusen | | + + + + + + + + | Performing | Address | City/State/Zipcode | Phone Number | | Organization | | | | + + + + + | [facility] | [address] | [place] [address] | | | [facility] | [place]. 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
--- OUTSIDE RECORDS SUMMARY | ~2020-05-06 | XMS | Encounter Summary ---
Demographics + + + | Address | [address] | | | [place] [address] | + + + | Home Phone | | + + + | Preferred Language | Unknown | + + + | Marital Status | | + + + | Mormon Affiliation | NRP | + + + | Race | White | + + + | Ethnic Group | Not or | + + + Author + + + | Author | [facility] | + + + | Organization | [facility] | + + + | [...] [place] | | | | | [address] | | + + + + + Care Team Providers + +------+ + | Care Home Health Care Respiratory Therapist Name | Role | Phone | + +------+ + | Carlo Soto MD | PCP | | + +------+ + Reason for Visit + + + | Reason | Comments | + + + | Follow-up visit | | + + + Benefits Check [...] | | | | | | | [address] | | | [address] | | | | | | | [place], [place] | | | | | | | [address] | | | | | | | Phone: | | | | | | | [phone] | | | | | | | Fax: | | | | | | | [phone] | +--------+--------+ + + + + Encounter Details +--------+---------+ + + + | Date | Type | Department | Care Team | Description | +--------+---------+ + + + | 06/27/ | Office | [facility] | Horace Tan MD | Nonexudative | | 2018 | Visit | [place] [facility] | [address] | age-related macular | | | | [facility] | [address] | degeneration, | | | | [facility] | [place], [place] | bilateral, | | | | Clinic [place], | [address] | intermediate dry | | | | [place] [address] | [phone] | stage; Exudative | | | | [phone] | | age-related macular | | | | | | degeneration of left | | | | | | eye with active | | | | |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 | | | | | | neovascularization | | | | | | ([facility]) | +--------+---------+ + + + Social History [...] Instructions Patient Instructions Horace Tan MD - 06/27/2018 10:45 AM PDTReturn before scheduled vi sit with decreasing vision or new shower of floaters. documented in this encounter Progress Notes Horace Tan MD - 06/27/2018 10:45 AM PDT [facility] Progress Note 06/27/2018 Assessment & Plan: 77 y.o. female Exudative age-related macular degeneration of left eye with active choroidal neovasculariza tion (HCC) Hx vitelliform / basal laminar drusen Converted to Wet AMD OS with hemorrhage- now resolved resovled in SRF s/p Avastin OS Stable appearance OD - shallow PEDs/atrophy PARQ Avastin OS Call for decreased vision, increased distortion, increased pain, new floaters or flashing l ights Follow up: Return in about 5 weeks (around 08/01/2018). Chief Complaint: Follow-up visit HPI: No change in vision observed, floaters or flashes of light. Distortion stable OU- chec benita Amsler grid. Current Outpatient Prescriptions (Ophthalmic Medications) Medication Sig [...] by mouth o nce daily. [employer] Capsules Reviewed: Tobacco | Allergies | Meds | Problems | Med Hx | Surg Hx | Fam Hx | Soc Hx Examination: See Ophthalmology Module Attestations: The mathematical technician, 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, [...] [address] | | | | | | [place], [place] | | | | | | [address] | | | | | | [phone] | | | | | | | | +--------+---------+ + + + | 07/29/ | Office | Ophthalmology | Horace Tan MD | | | 2019 | Visit | | [address] | | | | | | [address] | | | | | | [place], [place] | | | | | | [address] | | | | | | [phone] | | | | | | | | +--------+---------+ + + + documented as of this encounter Procedures + +--------+ + + + | Procedure Name | Priori | Date/Time | Associated Diagnosis | Comments | | | ty | | | | + +--------+ + + + | AVASTIN INJ - OS - | Routin | 07/02/2018 | Exudative | Results for this | | LEFT EYE | e | 12:27 PM | age-related macular | procedure are in the | | | | PDT | degeneration of left | results section. | | | | | eye with active | | | | |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 | | | | | | neovascularization | | | | | | ([facility]) | | + +--------+ + + + | OCT, RETINA | Routin | 06/27/2018 | Nonexudative | Results for this | | | e | 11:58 AM | age-related macular | procedure are in the | | | | PDT | degeneration, | results section. | | | | | bilateral, | | | | | | intermediate dry | | | | | | stage | | + +--------+ + + + documented in this encounter Results AVASTIN INJECTION - OS - LEFT EYE (07/02/2018 12:27 PM PDT) + + + | Narrative [...] bevacizumab 1.25 mg/0.05 mL | | | [facility]: [id number] | | | Lot: [id number] | | | Expiration Date: 08/12/2018 | | | Route: intravitreal | | | Site: Left Eye | | | | | | Estimated blood loss: none | | | | | | | | | Post Op | | | Post procedure assessment: visual acuity at least count fingers, eye | | | rinsed, patient tolerated procedure well | | | Patient reported pain is 0 on a 0-10 scale. | | + + + OCT, RETINA (06/27/2018 11:58 AM PDT) + + + | Narrative | Performed At | + + + | Irish Moss Operator | [facility] | | DocumentationRight EyeCentral [...] [facility] | [address] | [place] [address] | | | [place] | [place]. | | | + + + + + documented in this encounter Visit Diagnoses + + | Diagnosis | + + | Nonexudative age-related macular degeneration, bilateral, intermediate dry stage | + + | Exudative age-related macular [...] + | bevacizumab (AVASTIN) | Given | 07/02/20 | 1.25 mg | | Left Eye | | intravitreal injection 1.25 mg | | 18 12:27 | | | | | 1.25 mg, ONCE PRN (IPROC), 1 | | PM PDT | | | | | dose, Starting Mon07/02/18 at | | | | | | | 1227, Until Mon07/02/18 at 1227 | | | | | | + +--------+ +---------+------+ + +---+---+ | | | +---+---+ documented in this encounter"
--- OUTSIDE RECORDS SUMMARY | ~2020-05-06 | XMS | Encounter Summary ---
Demographics + + + | Address | [address] | | | [place] [address] | + + + | Home Phone | | + + + | Preferred Language | Unknown | + + + | Marital Status | | + + + | Synagogue Affiliation | NRP | + + + | Race | White | + + + | Ethnic Group | Not or | + + + Author + + + | Author | [facility] | + + + | Organization | [facility] | + + + | Address | Unknown | + + + | Phone | Unavailable | + + + Support + + + + + | Name | Relationship | Address | Phone | + + + + + | Andrzej Campos | ECON | [address] | | | | | [place] | | | | | [address] | | + + + + + Care Team Providers + +------+ + | Care Claims Analyst Name | Role | Phone | [...] | | | | | | | [address] | | | | | [address] | [address] | | | | | | | [place], [place] | | | | | | | [address] | | | | | | | Phone: | | | | | | | [phone] | | | | | | | Fax: | | | | | | | [phone] | +--------+--------+ + + + + Encounter Details +--------+---------+ + + + | Date | Type | Department | Care Team | Description | +--------+---------+ + + + | 03/13/ | Office | [facility] | Jeferson Villarreal MD | Exudative | | 2019 | Visit | [place] [facility] | [address] | age-related macular | | | | [facility] [address] | [address] | degeneration of both | | | | [facility] | [place], [place] | eyes with active | | | | [facility] [place], | [address]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 | | | | [place] [address] | [phone] | neovascularization | | | | [phone] | | ([facility]) (Primary Dx); | | | | | | Nonexudative | | | | | | age-related macular | | | | | | degeneration, | | | | | | bilateral, | | | | | | intermediate dry | | | | | | stage | +--------+---------+ + + + Social History [...] documented as of this encounter Progress Notes Jeferson Villarreal MD - 03/13/2019 10:15 AM PDT [facility] Progress Note 03/13/2019 Assessment & Plan: 78 y.o. 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 IRF OS today Wet/GA OD with increased SRF PARQ Avastin OU Call for decreased vision, increased distortion, increased pain, new floaters or flashing l ights Follow up: No Follow-up on file. Chief Complaint: Follow-up visit HPI: Vision stable Ocular Meds: Combigan BID OU No occupation listed. Current Outpatient Prescriptions (Ophthalmic Medications) Medication Sig [...] Hx Examination: See Ophthalmology Module Attestations: The conveyor technician, 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, is responsible for performing the f ollowing sections: RFV, ROS, PMH, PSH, SocHx, FH, Med list, Base Ophth Exam. The attending physician is responsible for the entire content of the note and has personall y performed the HPI and the physical examination Jeferson Villarreal MD docum ented in this encounter Plan of Treatment +--------+---------+ + + + | Date | Type | Specialty | Care Team | Description | +--------+---------+ + + + | 06/17/ | Office | Ophthalmology | Jeferson Villarreal MD | | | 2019 | Visit | | [address] | | | | [address] | | | | | | [place], [place] | | | | | | [address] | | | | | | [phone] | | | | | | | | +--------+---------+ + + + | 07/29/ | Office | Ophthalmology | Jeferson Villarreal MD | | | 2020 | Visit | | [address] | | | | | [address] | | | | | | [place], [place] | | | | | | [address] | | | | | | [phone] | | | | | | | | +--------+---------+ + + + documented as of this encounter Procedures + +--------+ + + + | Procedure Name | Priori | Date/Time | Associated Diagnosis | Comments | | | ty | | | | + +--------+ + + + | AVASTIN INJ - OD - | Routin | 03/13/2019 | Nonexudative | Results for this | | RIGHT EYE | e | 12:30 PM | age-related macular | procedure are in the | | | | PDT | degeneration, | results section. | | | | | bilateral, | | | | | | intermediate dry | | | | | | stage | | + +--------+ + + + | AVASTIN INJ - OS - | Routin | 03/13/2019 | Exudative | Results for this | | LEFT EYE | e | 12:29 PM | age-related macular | procedure are in the | | | | PDT | degeneration of both | results section. | | | | | eyes with active | | | | |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 | | | | | | neovascularization | | | | | | (HCC) | | + +--------+ + + + | OCT, RETINA | Routin | 03/13/2019 | Nonexudative | Results for this | | | e | 11:29 AM | age-related macular | procedure are in the | | | | PDT | degeneration, | results section. | | | | | bilateral, | | | | | | intermediate dry | | | | | | stage | | + +--------+ + + + documented in this encounter Results AVASTIN INJECTION - OD - RIGHT EYE (03/13/2019 12:30 PM PDT) + + + | Narrative | Performed At | + + + | Pre-Procedure | | | confirmed correct patient, procedure, site and consent., Procedures, | | | alternatives and risks discussed with patient. Questions answered. | | | | | | | [...] 1.25 mg/0.05 mL | | | [facility]: [id number] | | | Lot: [id number] | | | Expiration Date: 03/18/2019 | | | Route: intravitreal | | | Site: Right Eye | | | | | | Estimated blood loss: none | | | | | | | | | Post Op | | | Post procedure assessment: visual acuity at least count fingers, eye | | | rinsed, patient tolerated procedure well | | | Patient reported pain is 0 on a 0-10 scale. | | + + + AVASTIN INJECTION - OS - LEFT EYE (03/13/2019 12:29 PM PDT) + + + | Narrative | Performed At | + + + | Pre-Procedure | | | confirmed correct patient, procedure, site and consent., Procedures, | | | alternatives and risks discussed with patient. Questions answered. | | | | | | | [...] 1.25 mg/0.05 mL | | | [facility]: [id number] | | | Lot: [id number] | | | Expiration Date: 03/18/2019 | | | Route: intravitreal | | [...] | | + + + OCT, RETINA (03/13/2019 11:29 AM PDT) + + + | Narrative | Performed At | + + + | Product Design Specialist | [facility] | | [facility] macular thickness: 238 [...] [facility] | [address] | [place] [address] | | | [place] | Kristy. | | | + + + + + documented in this encounter Visit Diagnoses + + | Diagnosis | + + | Exudative age-related macular degeneration of both eyes with active choroidal | | neovascularization (HCC) - Primary | + + | Nonexudative age-related macular degeneration, bilateral, intermediate dry stage | + + documented in this encounter Administered Medications + +--------+ +---------+------+ + | Medication Order | MAR | Action | Dose | Rate | Site | | | Action | Date | | | | + +--------+ +---------+------+ + | bevacizumab (AVASTIN) | Given | 03/13/20 | 1.25 mg | | Left Eye | | intravitreal injection 1.25 mg | | 19 12:29 | | | | | 1.25 mg, ONCE PRN (IPROC), 1 | | PM PDT | | | | | dose, Starting Mon03/13/19 at | | | | | | | 1229, Until Mon03/13/19 at 1229 | | | | | | + +--------+ +---------+------+ + +---+---+ | | | +---+---+ + +-------+ +---------+---+--------+ | bevacizumab (AVASTIN) | Given | 03/13/20 | 1.25 mg | | Right | | intravitreal injection 1.25 mg | | 19 12:30 | | | Eye | | 1.25 mg, ONCE PRN (IPROC), 1 | | PM PDT | | | | | dose, Starting Mon03/13/19 at | | | | | | | 1230, Until Mon03/13/19 at 1230 | | | | | | + +-------+ +---------+---+--------+ +---+---+ | | | +---+---+ documented in this encounter"
--- OUTSIDE RECORDS SUMMARY | ~2020-05-06 | XMS | Encounter Summary ---
Demographics + + + | Address | [address] | | | [place] [address] | + + + | Home Phone | | + + + | Preferred Language | Unknown | + + + | Marital Status | | + + + | Congregation Affiliation | NRP | + + + | Race | White | + + + | Ethnic Group | Not or | + + + Author + + + | Author | [facility] | + + + | Organization | [facility] | + + + | Address | Unknown | + + + | Phone | Unavailable | + + + Support + + + + + | Name | Relationship | Address | Phone | + + + + + | Andrzej Campos | ECON | [address] | | | | | [place] | | | | | [address] | | + + + + + Care Team Providers + +------+ + | Care Childcare Center Director Name | Role | Phone | + [...] | | | Epic Dept | [facility] | | | | | | | [address] | | | | | | [address] | | [address] | | | | | | | [place], [place] | | | | | | | [address] | | | | | | | Phone: | | | | | | | [phone] | | | | | | | Fax: | | | | | | | [phone] | +--------+--------+ + + + + Encounter Details +--------+---------+ + + + | Date | Type | Department | Care Team | Description | +--------+---------+ + + + | 08/01/ | Office | [facility] | Horace Tan MD | Nonexudative | | 2018 | Visit | [facility] | [address] | age-related macular | | | | Alex [address] | [address] | degeneration, | | | | [facility] | [place], [place] | bilateral, | | | | Clinic [place], | [address] | intermediate dry | | | | [place] [address] | [phone] | stage; Exudative | | | | [phone] | | age-related macular | | | | | | degeneration of left | | | | | | eye with active | | | | |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 | | | | | | neovascularization | | | | | | (HCC) | +--------+---------+ + + + Social History [...] documented as of this encounter Progress Notes Horace Tan MD - 08/01/2018 11:00 AM PDT [facility] Progress Note 08/01/2018 Assessment & Plan: 77 y.o. female Exudative [...] l ights Follow up: Return in about 4 weeks (around 08/29/2018). Chief Complaint: Follow-up visit AMD - Age-related macular degeneration HPI: Patient states that her vision is unchanged. No new floaters, distortions, or flashes of light. Current Outpatient Prescriptions [...] Hx Examination: See Ophthalmology Module Attestations: The traffic technician, 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, [...] [address] | | | | | | [place], [place] | | | | | | [address] | | | | | | [phone] | | | | | | | | +--------+---------+ + + + | 07/29/ | Office | Ophthalmology | Horace Tan MD | | | 2019 | Visit | | [address] | | | | | [address] | | | | | | [place], [place] | | | | | | [address] | | | | | | [phone] | | | | | | | | +--------+---------+ + + + documented as of this encounter Procedures + +--------+ + + + | Procedure Name | Priori | Date/Time | Associated Diagnosis | Comments | | | ty | | | | + +--------+ + + + | AVASTIN INJ - OS - | Routin | 08/08/2018 | Exudative | Results for this | | LEFT EYE | e | 1:57 PM | age-related macular | procedure are in the | | | | PDT | degeneration of left | results section. | | | | | eye with active | | | | |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 | | | | | | neovascularization | | | | | | (HCC) | | + +--------+ + + + | OCT, RETINA | Routin | 08/01/2018 | Nonexudative | Results for this | | | e | 11:49 AM | age-related macular | procedure are in the | | | | PDT | degeneration, | results section. | | | | | bilateral, | | | | | | intermediate dry | | | | | | stage | | + +--------+ + + + documented in this encounter Results AVASTIN INJECTION - OS - LEFT EYE (08/08/2018 1:57 PM PDT) + + + | Narrative | Performed At | + + + | Pre-Procedure | | | Procedures, alternatives and risks discussed with patient. Questions | | | answered. | | | | | | [...] 1.25 mg/0.05 mL | | | [facility]: [id number] | | | Lot: [id number] | | | Expiration Date: 09/18/2018 | | | Route: intravitreal | | [...] | | + + + OCT, RETINA (08/01/2018 11:49 AM PDT) + + + | Narrative | Performed At | + + + | Gallery Or Museum Technician | [facility] | | [facility] [...] + + | [facility] | [address] | [place] [address] | | | [place] | Kristy. | [...] + | bevacizumab (AVASTIN) | Given | 08/08/20 | 1.25 mg | | Left Eye | | intravitreal injection 1.25 mg | | 18 1:57 | | | | | 1.25 mg, ONCE PRN (IPROC), 1 | | PM PDT | | | | | dose, Starting Mon08/08/18 at | | | | | | | 1357, Until Mon08/08/18 at 1357 | | | | | | + +--------+ +---------+------+ + +---+---+ | | | +---+---+ documented in this encounter"
--- OUTSIDE RECORDS SUMMARY | ~2020-05-06 | XMS | Encounter Summary ---
Demographics + + + | Address | [address] | | | [place] [address] | + + + | Home Phone | | + + + | Preferred Language | Unknown | + + + | Marital Status | | + + + | Worship Affiliation | NRP | + + + | Race | White | + + + | Ethnic Group | Not or | + + + Author + + + | Author | [facility] | + + + | Organization | [facility] | + + + | Address | Unknown | + + + | Phone | Unavailable | + + + Support + + + + + | Name | Relationship | Address | Phone | + + + + + | Andrzej Campos | ECON | [address] | | | | | [place] | | | | | [address] | | + + + + + Care Team Providers + +------+ + | Care Road Cutter Name | Role | Phone | + [...] | | | | | | | [address] | | | | | | | [address] | | [address] | | | | | | | [place], [place] | | | | | | | [address] | | | | | | | Phone: | | | | | | | [phone] | | | | | | | Fax: | | | | | | | [phone] | +--------+--------+ + + + + Encounter Details +--------+---------+ + + + | Date | Type | Department | Care Team | Description | +--------+---------+ + + + | 03/13/ | Office | [facility] | Jeferson Villarreal MD | Exudative | | 2019 | Visit | [facility] | [address] | age-related macular | | | | [facility] [address] | [address] | degeneration of both | | | | [facility] | [place], [place] | eyes with active | | | | Clinic [place], | [address]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 | | | | [place] [address] | [phone] | neovascularization | | | | [phone] | | ([facility]) (Primary Dx); | | | | | [...] Villarreal MD - 03/13/2019 10:15 AM PDT [facility] Progress Note 03/13/2019 Assessment & Plan: 78 [...] Hx Examination: See Ophthalmology Module Attestations: The histotechnician, 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, is [...] [address] | | | | | | [place], [place] | | | | | | [address] | | | | | | [phone] | | | | | | | | +--------+---------+ + + + | 07/29/ | Office | Ophthalmology | Jeferson Villarreal MD | | | 2020 | Visit | | [address] | | | | | | [address] | | | | | | [place], [place] | | | | | | [address] | | | | | | [phone] | | | | | | | [...] bevacizumab 1.25 mg/0.05 mL | | | [facility]: [id number] | | | Lot: [id number] | | | Expiration Date: 03/18/2019 | [...] bevacizumab 1.25 mg/0.05 mL | | | [facility]: [id number] | | | Lot: [id number] | | | Expiration Date: 03/18/2019 | [...] Performed At | + + + | Volunteer Specialist | [facility] | | [facility] [...] [facility] | [address] | [place] [address] | | | [place] | Kristy. | [...]
--- OUTSIDE RECORDS SUMMARY | ~2020-05-06 | XMS | Encounter Summary ---
Demographics + + + | Address | [address] | | | [place] [address] | + + + | Home Phone | | + + + | Preferred Language | Unknown | + + + | Marital Status | | + + + | Faith Affiliation | NRP | + + + | Race | White | + + + | Ethnic Group | Not or | + + + Author + + + | Author | [facility] | + + + | Organization | [facility] | + + + | Address | Unknown | + + + | Phone | Unavailable | + + + Support + + + + + | Name | Relationship | Address | Phone | + + + + + | Andrzej Campos | ECON | [address] | | | | | [place] | | | | | [address] | | + + + + + Care Team Providers + +------+ + | Care Bucket Wash Operator Name | Role | Phone | [...] | | | | | | | [address] | | | | | | | [address] | | | | | | | [place], [place] | | | | | | | [address] | | | | | | | Phone: | | | | | | | [phone] | | | | | | | Fax: | | | | | | | [phone] | +--------+--------+ + + + + Encounter Details +--------+---------+ + + + | Date | Type | Department | Care Team | Description | +--------+---------+ + + + | 09/26/ | Office | [facility] | Horace Tan MD | Nonexudative | | 2018 | Visit | [facility] | [address] | age-related macular | | | | [facility] | [address] | degeneration, | | | | [facility] | [place], [place] | bilateral, | | | | [facility] [place], | [address] | intermediate dry | | | | [place] [address] | [phone] | stage; Exudative | | | | [phone] | | age-related macular | | | | | | degeneration of both | | | | | | eyes with [...] Instructions Patient Instructions Horace Tan MD - 09/26/2018 8:45 AM PSTReturn before scheduled vi sit with decreasing vision or new shower of floaters. documented in this encounter Progress Notes Horace Tan MD - 09/26/2018 8:45 AM PST [facility] Progress Note 09/26/2018 Assessment & Plan: 78 y.o. 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 Chief Complaint: Follow-up visit HPI: No change in vision observed. Denies flashes of light, floaters, or distortion OU. Current Outpatient Prescriptions (Ophthalmic Medications) Medication Sig [...] Hx Examination: See Ophthalmology Module Attestations: The autocad technician, 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, [...] [address] | | | | | | [place], [place] | | | | | | [address] | | | | | | [phone] | | | | | | | | +--------+---------+ + + + | 07/29/ | Office | Ophthalmology | Horace Tan MD | | | 2019 | Visit | | [address] | | | | | [address] | | | | | | [place], [place] | | | | | | [address] | | | | | | [phone] | | | | | | | | +--------+---------+ + + + documented as of this encounter Procedures + +--------+ + + + | Procedure Name | Priori | Date/Time | Associated Diagnosis | Comments | | | ty | | | | + +--------+ + + + | AVASTIN INJ - OS - | Routin | 09/26/2018 | Exudative | Results for this | | LEFT EYE | e | 9:45 AM | age-related macular | procedure are in the | | | | PST | degeneration of both | results section. | | | | | eyes with active | | | | |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 | | | | | | neovascularization | | | | | | (HCC) | | + +--------+ + + + | OCT, RETINA | Routin | 09/26/2018 | Nonexudative | Results for this | | | e | 8:56 AM | age-related macular | procedure are in the | | | | PST | degeneration, | results section. | | | | | bilateral, | | | | | | intermediate dry | | | | | | stage | | + +--------+ + + + documented in this encounter Results AVASTIN INJECTION - OS - LEFT EYE (09/26/2018 9:45 AM PST) + + + | Narrative [...] bevacizumab 1.25 mg/0.05 mL | | | [facility]: [id number] | | | Lot: [id number] | | | Expiration Date: 11/12/2018 | | | Route: intravitreal | | [...] | | + + + OCT, RETINA (09/26/2018 8:56 AM PST) + + + | Narrative | Performed At | + + + | Manganese Breaker | [facility] | | [facility] [...] + + | [facility] | [address] | [place] [address] | | | [place] | Kristy. | [...] + | bevacizumab (AVASTIN) | Given | 09/26/20 | 1.25 mg | | Left Eye | | intravitreal injection 1.25 mg | | 18 9:44 | | | | | 1.25 mg, ONCE PRN (IPROC), 1 | | AM PST | | | | | dose, Starting Mon09/26/18 at | | | | | | | 0944, Until Mon09/26/18 at 0944 | | | | | | + +--------+ +---------+------+ + +---+---+ | | | +---+---+ documented in this encounter"
--- OUTSIDE RECORDS SUMMARY | ~2020-05-06 | XMS | Encounter Summary ---
Demographics + + + | Address | [address] | | | [place] [address] | + + + | Home Phone | | + + + | Preferred Language | Unknown | + + + | Marital Status | | + + + | Christian Affiliation | NRP | + + + | Race | White | + + + | Ethnic Group | Not or | + + + Author + + + | Author | [facility] | + + + | Organization | [facility] | + + + | Address | Unknown | + + + | Phone | Unavailable | + + + Support + + + + + | Name | Relationship | Address | Phone | + + + + + | Andrzej Campos | ECON | [address] [facility] | | | | | [place] | | | | | [address] | | + + + + + Care Team Providers + +------+ + | Care Electroslag Welding Machine Operator Name | Role | Phone | + +------+ + | Carlo Soto MD | PCP | | + +------+ + Reason for Visit + + + | Reason | Comments | + + + | Refill Request | Brimonidine | + + + Encounter Details +--------+--------+ + + + | Date | Type | Department | Care Team | Description | +--------+--------+ + + + | 07/22/ | Refill | [facility] | Gail Peralta, | Refill Request | | 2016 | | [facility] | ,PhD [address] | (Brimonidine) | | | | at [facility] [address] | [address] [place], [place] | | | | | Av Mailcode: [facility] | [address] | | | | | [facility] | [phone] | | | | | and [facility], | | | | | | Building | | | | | | [place], [place] | | | | | | [address] | | | | | | [phone] | | | +--------+--------+ + + + Social History + +-------+ [...] | | 2020 | Visit | | [address] | | | | | | [address] | | | | | | [place], [place] | | | | | | [address] | | | | | | [phone] | | | | | | | | +--------+---------+ + + + | 07/29/ | Office | Ophthalmology | Jeferson Villarreal MD | | | 2020 | Visit | | [address] | | | | | | [address] | | | | | | [place] | | | | | | [address] | | | | | | [phone] | | | | | | | | +--------+---------+ + + + documented as of this encounter Visit Diagnoses Not on filedocumented in this encounter"
--- OUTSIDE RECORDS SUMMARY | ~2020-05-06 | XMS | Encounter Summary ---
Demographics + + + | Address | [address] | | | [place] [address] | + + + | Home Phone | | + + + | Preferred Language | Unknown | + + + | Marital Status | | + + + | Mandaeism Affiliation | NRP | + + + | Race | White | + + + | Ethnic Group | Not or | + + + Author + + + | Author | [facility] | + + + | Organization | [facility] | + + + | [...] [place] | | | | | [address] | | + + + + + Care Team Providers + +------+ + | Care Hand Etcher Helper Name | Role | Phone | + [...] | | | | | | | [address] | | | | | | [address] | | [address] | | | | | | | [place], [place] | | | | | | | [address] | | | | | | | Phone: | | | | | | | [phone] | | | | | | | Fax: | | | | | | | [phone] | +--------+--------+ + + + + Encounter Details +--------+---------+ + + + | Date | Type | Department | Care Team | Description | +--------+---------+ + + + | 11/14/ | Office | [facility] | Jeferson Villarreal MD | Nonexudative | | 2019 | Visit | [facility] | [address] | age-related macular | | | | [facility] | [address] | degeneration, | | | | [facility] | [place], [place] | bilateral, | | | | Clinic [place], | [address] | intermediate dry | | | | [place] [address] | [phone] | stage; Exudative | | | | [phone] | | age-related macular | | | [...] of this encounter Patient Instructions Patient Instructions Jeferson Villarreal MD - 11/14/2018 10:45 AM PSTReturn before scheduled vi sit with decreasing vision or new shower of floaters. documented in this encounter Progress Notes Jeferson Villarreal MD - 11/14/2018 10:45 AM PST [facility] Progress Note 11/14/2018 Assessment & Plan: 78 y.o. 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 Chief Complaint: Follow-up visit HPI: Recently noticed shadows OD near distortion area when checking Amsler Grid. Distortion OS is improved looking at grid. No floaters or flashes of light OU. Occasional optic migrai beau. 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, [...] [address] | | | | | | [place], [place] | | | | | | [address] | | | | | | [phone] | | | | | | | | +--------+---------+ + + + | 07/29/ | Office | Ophthalmology | Jeferson Villarreal MD | | | 2019 | Visit | | [address] | | | | | | [address] | | | | | | [facility], [place] | | | | | | [address] | | | | | | [phone] | | | | | | | | +--------+---------+ + + + documented as of this encounter Procedures + +--------+ + + + | Procedure Name | Priori | Date/Time | Associated Diagnosis | Comments | | | ty | | | | + +--------+ + + + | AVASTIN INJ - OS - | Routin | 11/14/2018 | Exudative | Results for this | | LEFT EYE | e | 1:10 PM | age-related macular | procedure are in the | | | | PST | degeneration of both | results section. | | | | | eyes with active | | | | |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 | | | | | | neovascularization | | | | | | (HCC) | | + +--------+ + + + | OCT, RETINA | Routin | 11/14/2018 | Nonexudative | Results for this | | | e | 11:44 AM | age-related macular | procedure are in the | | | | PST | degeneration, | results section. | | | | | bilateral, | | | | | | intermediate dry | | | | | | stage | | + +--------+ + + + documented in this encounter Results AVASTIN INJECTION - OS - LEFT EYE (11/14/2018 1:10 PM PST) + + + | Narrative [...] bevacizumab 1.25 mg/0.05 mL | | | [facility] [place]: [id number] | | | Lot: [id number] | | | Expiration Date: 01/13/2019 | | | Route: intravitreal | | [...] | | + + + OCT, RETINA (11/14/2018 11:44 AM PST) + + + | Narrative | Performed At | + + + | Distributor Sales Manager | [facility] | | [facility] | [address] | [place] [address] | | | [employer] | [place]. | [...] + | bevacizumab (AVASTIN) | Given | 11/14/19 | 1.25 mg | | Left Eye | | intravitreal injection 1.25 mg | | 19 1:10 | | | | | 1.25 mg, ONCE PRN (IPROC), 1 | | PM PST | | | | | dose, Starting Mon11/14/18 at | | | | | | | 1310, Until Mon11/14/18 at 1310 | | | | | | + +--------+ +---------+------+ + +---+---+ | | | +---+---+ documented in this encounter"
--- OUTSIDE RECORDS SUMMARY | ~2020-05-06 | XMS | Encounter Summary ---
Demographics + + + | Address | [address] | | | [place] [address] | + + + | Home Phone | | + + + | Preferred Language | Unknown | + + + | Marital Status | | + + + | Yazdanism Affiliation | NRP | + + + | Race | White | + + + | Ethnic Group | Not or | + + + Author + + + | Author | [facility] | + + + | Organization | [facility] | + + + | Address [...] [place] | | | | | [address] | | + + + + + Care Team Providers + +------+ + | Care Chair Maker Name | Role | Phone | + +------+ + | Carlo Soto MD | PCP | | + +------+ + Reason for Visit + + + | Reason | Comments | + + + | Care Questions | | + + + Encounter Details +--------+ + + + + | Date | Type | Department | Care Team | Description | +--------+ + + + + | 07/04/ | Telephone | [facility] | Jeferson Villarreal MD | Care Questions | | 2019 | | [facility] | [address] | | | | [facility] | [address] | | | | | [place], [place] | [place], [place] | | | | | [address] | [address] | | | | | [phone] | [phone] | | | | | | | | +--------+ + + + [...] [address] | | | | | | [place], [place] | | | | | | [address] | | | | | | [phone] | | | | | | | | +--------+---------+ + + + | 07/29/ | Office | Ophthalmology | Jeferson Villarreal MD | | | 2020 | Visit | | [address] | | | | | [address] | | | | | | [place] | | | | | | [address] | | | | | | [phone] | | | | | | | | +--------+---------+ + + + documented as of this encounter Visit Diagnoses Not on filedocumented in this encounter"
--- OUTSIDE RECORDS SUMMARY | ~2020-05-06 | XMS | Encounter Summary ---
Demographics + + + | Address | [address] | | | [place] [address] | + + + | Home Phone | | + + + | Preferred Language | Unknown | + + + | Marital Status | | + + + | Spiritism Affiliation | NRP | + + + | Race | White | + + + | Ethnic Group | Not or | + + + Author + + + | Organization | Unknown | + + + | Address | Unknown | + + + | Phone | Unavailable | + + + Support + + + + + | Name | Relationship | Address | Phone | + + + + + | Andrzej Campos | ECON | [address] [facility] | | | | | [place] | | | | | [address] | | + + + + + Care Team Providers + +------+ + | Care Senior It Engineer Name | Role | Phone | + +------+ + | Carlo Soto MD | PCP | | + +------+ + Encounter Details +--------+--------+ + + + | Date | Type | Department | Care Team | Description | +--------+--------+ + + + | 05/01/ | Travel | | | | | 2018 | | | | | +--------+--------+ + + + [...] | | 2020 | Visit | | [address] | | | | | | [address] | | | | | | [place], [place] | | | | | | [address] | | | | | | [phone] | | | | | | | | +--------+---------+ + + + | 07/29/ | Office | Ophthalmology | Jeferson Villarreal MD | | | 2020 | Visit | | [address] | | | | | | [address] | | | | | | [place], [place] | | | | | | [address] | | | | | | [phone] | | | | | | | | +--------+---------+ + + + documented as of this encounter Visit Diagnoses Not on filedocumented in this encounter"
--- OUTSIDE RECORDS SUMMARY | ~2020-05-06 | XMS | Encounter Summary ---
Demographics + + + | Address | [address] | | | [place] [address] | + + + | Home Phone | | + + + | Preferred Language | Unknown | + + + | Marital Status | | + + + | Confucianist Affiliation | NRP | + + + | Race | White | + + + | Ethnic Group | Not or | + + + Author + + + | Author | [facility] | + + + | Organization | [facility] | + + + | Address | Unknown | + + + | Phone | Unavailable | + + + Support + + + + + | Name | Relationship | Address | Phone | + + + + + | Andrzej Campos | ECON | [address] [facility] | | | | | [place] | | | | | [address] | | + + + + + Care Team Providers + +------+ + | Care Vehicle Window Tinter Name | Role | Phone | + [...] | | | | | | | [place], [place] | | | | | | | [address] | | | | | | | Phone: | | | | | | | [phone] | | | | | | | Fax: | | | | | | | [phone] | +--------+--------+ + + + + Encounter Details +--------+---------+ + + + | Date | Type | Department | Care Team | Description | +--------+---------+ + + + | 08/01/ | Office | [facility] | Horace Tan MD | Nonexudative | | 2018 | Visit | [facility] | [address] | age-related macular | | | | [address] | [address] | degeneration, | | | | [facility] | [place], [place] | bilateral, | | | | Clinic [place], | [address] | intermediate dry | | | | [place] [address] | [phone] | stage; Exudative | | | | [phone] | | age-related macular | | | [...] AM PDT [facility] Progress Note 08/01/2018 Assessment & Plan: 77 [...] Hx Examination: See Ophthalmology Module 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, 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, [...] [address] | | | | | | [place], [place] | | | | | | [address] | | | | | | [phone] | | | | | | | | +--------+---------+ + + + | 07/29/ | Office | Ophthalmology | Horace Tan MD | | | 2019 | Visit | | [address] | | | | | | [address] | | | | | | [place], [place] | | | | | | [address] | | | | | | [phone] | | | | | | | [...] bevacizumab 1.25 mg/0.05 mL | | | [facility]: [id number] | | | Lot: [id number] | | | Expiration Date: 09/18/2018 | [...] Performed At | + + + | Chair Spring Assembler | [facility] | | [facility] [...] + + | [facility] | [address] | [place] [address] | | | [place] | [address]. | [...]
--- OUTSIDE RECORDS SUMMARY | ~2020-05-06 | XMS | Encounter Summary ---
Demographics + + + | Address | [address] | | | [place] [address] | + + + | Home Phone | | + + + | Preferred Language | Unknown | + + + | Marital Status | | + + + | Scientologist Affiliation | Unknown | + + + | Race | Unknown | + + + | Ethnic Group | Unknown | + + + Author + + + | Author | [facility] | | | and Rejiana | + + + | Organization | [facility] | | | and Rejiana | + + + | Address | Unknown | + + + | Phone | Unavailable | + + + Support + + + + + | Name | Relationship | Address | Phone | + + + + + | Allan Campos | ECON | [address] | | | | | [place] | | | | | [address] | | + + + + + Care Team Providers + +------+ + | Care E Learning Coordinator Name | Role | Phone | + +------+ + | Eliud Hammond MD | PCP | | + +------+ + Reason for Referral Evaluate & Treat (Routine) +--------+ + + + + + | Status | Reason | Specialty | Diagnoses / | Referred By | Referred To | | | | | Procedures | Contact | Contact | +--------+ + + + + + | Closed | Specialty | Sleep | Diagnoses | Kevin, | [facility] | | | Services | Medicine | PRABHJOT | Huy Grover | [place] [address] | | | Required | | (obstructive | MD [address] | [place] | | | | | sleep | [place] | [place], | | | | | apnea) | [facility] | [place] [address] | | | | | Procedures | [place], [place] | Phone: | | | | | [place] | [address] | [phone] | | | | | 6/>YRS SLEEP | Phone: | Fax: | | | | | 4/> ADDL | [phone] | [phone] | | | | | VERONIKA ATTND | Fax: | | | | | | NPSG | [phone] | | +--------+ + + + + + Reason for Visit +---------+ + | Reason | Comments | +---------+ + | Consult | | +---------+ + | Snoring | | +---------+ + Evaluate & Treat (Routine) +--------+--------+ + + + + | Status | Reason | Specialty | Diagnoses / | Referred By | Referred To | | | | | Procedures | Contact | Contact | +--------+--------+ + + + + | Closed | | Internal | Diagnoses | Manish, | Kevin, | | | | Medicine - | Obstructive | Eliud | Huy Grover | | | | Sleep | sleep apnea | MD [place] | [address] | | | | Medicine / | (adult) | [address] | [place] | | | | Sleep | (pediatric) | [place] | [place] | | | | Medicine | consult pw@ | [facility], [place] | [place], [place] | | | | | [address] | [address] | [address] Phone: | | | | | Procedures | Phone: | [phone] | | | | | NEW PATIENT | [phone] | Fax: | | | | | | Fax: | [phone] | | | | | | [phone] | | +--------+--------+ + + + + Encounter Details +--------+---------+ + + + | Date | Type | Department | Care Team | Description | +--------+---------+ + + + | 05/28/ | Office | [facility] | Huy Brown | PRABHJOT (obstructive | | 2015 | Visit | SLEEP DISORDER [address] | [address] | sleep apnea) | | | | [address] [place] | [address] [place] | (Primary Dx); | | | | [place] [address] | [place] [address] | Parasomnia; Diabetes | | | | [phone] | [phone] | type 2, controlled | | | | | | ([facility]) | +--------+---------+ + + + Social History [...] + +---------+ + | Yes | 7 Standard drinks | 7.0 | | | | or equivalent | | | + + +---------+ + + + + | Sex Assigned at | Date Recorded | | | | + + + | Not on file | | + + + documented as of this encounter Last Filed Vital Signs + + + + + | Vital Sign | Reading | Time Taken | Comments | + + + + + | Blood Pressure | 126/80 | 05/28/2015 10:49 AM | | | | | PDT | | + + + + + | Pulse | 59 | 05/28/2015 10:49 AM | | | | | PDT | | + + + + + | Temperature | - | - | | + + + + + | Respiratory Rate | 16 | 05/28/2015 10:49 AM | | | | | PDT | | + + + + + | Oxygen Saturation | 98% | 05/28/2015 10:49 AM | | | | | PDT | | + + + + + | Inhaled Oxygen | - | - | | | Concentration | | | | + + + + + | Weight | 61 kg (134 lb 6.4 | 05/28/2015 10:49 AM | | | | oz) | PDT | | + + + + + | Height | 152.1 cm (4' 11.9") | 05/28/2015 10:49 AM | | | | | PDT | | + + + + + | Body Mass Index | 26.34 | 05/28/2015 10:49 AM | | | | | PDT | | + + + + + documented in this encounter Patient Instructions Patient Instructions Huy Brown Jr., MD - 05/28/2015 11:54 AM PDT What Are Snoring and Sleep Apnea? If you ve ever had a stuffed-up nose, you know the feeling of trying to breathe through a very narrow passageway. This is what happens in your throat when you snore. While you sleep , structures in your throat partially block your air passage, making the passage narrow and hard to breathe through. If the entire passage becomes blocked and you can t breathe at al l, you have sleep apnea. Snoring If your throat structures are too large or the muscles relax too much during sleep, the air passage may be partially blocked. As air from the nose or mouth passes around this blockage , the throat structures vibrate, causing the familiar sound of snoring. At times, this sound can be so loud that snorers wake up others, or even themselves, during the night. Snoring g ets worse as more and more of the air passage is blocked. Sleep apnea If the structures completely block the throat, air can t flow to the lungs at all. This i s called apnea (meaning no breathing ). Since the lungs aren t getting fresh air, the brain tells the body to wake up just enough to tighten the muscles and unblock the air pass age. With a loud gasp, breathing begins again. This process may be repeated over and over ag ain throughout the night, making your sleep fragmentedwith a student dean stage of sleep. Even though you do not remember waking up many times during the night to a student dean sleep, you fee l tired the next day. The lack of sleep and fresh air can also strain your lungs, heart, and other organs, leading to problems such as high blood pressure, heart attack, or stroke. Problems in the nose and jaw Problems in the structure of the nose may obstruct breathing. A crooked (deviated) septum o r swollen turbinates can make snoring worse or lead to apnea. Also, a receding jaw may make the tongue sit too far back, so it s more likely to block the airway when you re asleep. [id number] [employer]. [address] [place] [address], [place] [address]. All righ ts reserved. This information is not intended as a substitute for professional medical care. Always follow your healthcare professional's instructions. What Is a Sleep Study? Do you often have problems sleeping? Do you feel tired most days of the week? Talk to your health care provider or a sleep specialist. He or she may suggest that you have a sleep stud y. It can help diagnose a sleep disorder such as sleep apnea or narcolepsy. During the study , a special machine is used to monitor your sleep. Who Needs a Sleep Study? If you have sleep problems that last longer than a few weeks, you may need a sleep study. T alk to your health care provider. Be prepared to answer questions about your health history. Try to keep a daily sleep diary for a week or 2. Write down the time you go to bed, the augustina e you wake up, and anything that seems to affect your sleep. Then your health care provider can refer you to a sleep specialist and recommend a sleep study. Monitoring Your Sleep Your sleep can be monitored at a sleep clinic or at your home. In either case, your health care provider will discuss the results with you at a future visit: At a sleep clinic. Most sleep studies are done at a sleep clinic or a sleep lab. In many cases, you will need to stay overnight. You will sleep in a private room, much like a hotel or hospital room. A family member or a friend can come along, but cannot stay overnight. Mo st people don t have trouble sleeping during the study. In the morning you can go home. So metimes you may be asked to come back for a daytime nap study. At home. At times, a sleep study can be done at home. A home sleep study provides most o f the same information as a study done at a clinic. A special computer is loaned to you by a sleep clinic or a medical supplier. You will be given instructions on how to use it. Or, so meone may come to your home to help. Before bedtime, the computer is turned on to monitor yo ur sleep all night. In the morning, you return the computer. [id number] [employer]. [address] [place] [address]. All righ ts reserved. This information is not intended as a substitute for professional medical care. Always follow your healthcare professional's instructions. Monitoring Your Sleep: Sleep Lab Testing Checking your sleep during a nighttime sleep study is often the only way to find out if you have conditions such as sleep apnea or other sleep problems. A sleep study records how your lungs, heart, brain, and other parts of your body function while you re asleep. It s pa inless, risk-free, and in most cases takes 1 full night. Testing in a Sleep Clinic If you spend the night in a sleep clinic, you will have a private bedroom. A experimental technician fuentes l attach many sensors to your body, then go into another room. As you sleep, your heart rate , breathing, oxygen level, brain activity, and other functions will be tracked. A microphone and video camera will record your breathing sounds and body movements. The experimental technician will keep watch nearby. If you need an air pressure device to help you breathe, one will be avail able. Tips for Testing in a Sleep Lab Before your sleep study, bathe and wash your hair. Don t use conditioners, oils, or ma keup. Stick to your normal routine. If you usually drink alcohol, exercise, or take medication before bed, ask your health care provider whether you should do so the night of your study. Most patients undergoing a sleep study should take all of their medications as they typical ly would at home. Bring your toothbrush, sleepwear, pillow, something to read, and anything else that will help you sleep well. Getting the Results The results of your sleep study need to be scored and interpreted. Once this is done, your health care providerwill discuss the findings with you. The sleep study results will show whether you have sleep apnea. It can also tell how severe the apnea is. The findings help yo ur health care providerknow which treatment or treatments may be the right ones for you. [id number] [employer]. [address] [place] [address], [place] [address]. All righ ts reserved. This information is not intended as a substitute for professional medical care. Always follow your healthcare professional's instructions. documented in this encounter Progress Notes Huy Brown Jr., MD - 05/28/2015 11:02 AM PDTFormatting of this note might be differen t from the original. [facility] [place] [address] Ref: Eliud Hammond, * CC: Chief Complaint Patient presents with Consult Snoring History of the Present Illness:This is a 74 year old female who is referred for sleep medic ine consultation by Dr. Isabella Hammond because of possible PRABHJOT. Other significant medical issues include HBP, Asthma, osteoporosis, hypercholesterolemia. The patient's records (Dr. Hammond ) are reviewed. The patient is interviewed and examined. Bedtime is usually about 10:30pm and rise time is about 7-8am; this started about 1.5 years ago. Prior to this her bedtime was MN-2am and rise time was 10-11am. Then she started to bashir ve tree faller awakenings. She was under significant stress. She has been taking antihista mines which she thinks helps. She currently estimates a latency to sleep onset of about 15 m inutes. She has nocturia once a night and she usually gets back to sleep easily. She has nig ht sweats every night. She denies nocturnal heartburn. She frequently awakens with a dry jefe th (she mouth breaths at night). She denies morning nasal/sinus congestion. She denies morni ng headaches. She dreams in her sleep. She denies hypnagogic hallucinations. She isn't asleep walker. She has moaned in her sleep and moving in her sleep (she doesn't recall dreaming) once several months ago on a trip. She denies sleep paralysis. She rarely has restlessness in her legs at night. She takes potassium for this. People have told her that she snores rather loudly. No one has ever told her that she stops breathing at night. She doesn't knowingly awaken herself gasping for air. She doesn't sleep supine. In the daytime she feels alert most days unless she hasn't slept well at night. She denies cataplexy. She doesn't fall asleep driving but she gets very drowsy (in which case she will take a caffeine pill). She consumes about 4-6 cups of tea a day. Past Medical History: has a past medical history of Osteoporosis; Diabetes type 2, control led ([facility]); PRABHJOT (obstructive sleep apnea); Macular degeneration; Glaucoma; GERD (gastroesopha geal reflux disease); and Asthma. has past surgical history that includes section, classic (1967, 1968, 1970) and C holecystectomy (1994). Allergies Allergen Reactions Red Dye Hives Cephalexin Rash Current Outpatient Prescriptions Medication Sig Dispense Refill ascorbic acid (VITAMIN C) 500 mg tablet Take 500 mg by mouth Daily. brimonidine-timolol (COMBIGAN) 0.2-0.5% ophthalmic solution 1 drop 2 times daily. CHLORPHENIRAMINE MALEATE PO Take 2 mg by mouth as needed. Cholecalciferol (VITAMIN D-3) 65094 units CAPS Take 1,000 Units by mouth Daily. Cinnamon 500 MG TABS Take 1,000 mg by mouth Daily. Cod Liver Oil (COD LIVER PO) Take 415 mg by mouth Daily. CRANBERRY PO Take 4,200 mg by mouth Daily. diphenhydrAMINE (BENADRYL) 25 mg tablet Take 25 mg by mouth every 6 hours as needed for Itching. doxylamine (UNISOM) 25 mg tablet Take 25 mg by mouth nightly as needed for Insomnia. fluticasone (FLOVENT HFA) 110 mcg/puff inhaler Inhale 1 puff into the lungs 2 times gale ly. Jerry, Zingiber officinalis, (JERRY ROOT) 550 MG CAPS Take 550 mg by mouth Daily. Glucosamine HCl (GLUCOSAMINE HYDROCHLORIDE) 1,000 mg tablet Take 2,000 mg by mouth Fady y. hypromellose (GENTEAL MILD) 0.2 % ophthalmic solution Place 1 drop into both eyes night ly. levothyroxine (SYNTHROID, LEVOTHROID) 75 MCG tablet Take 75 mcg by mouth every morning (before breakfast). metFORMIN (GLUCOPHAGE) 500 mg tablet Take 500 mg by mouth 2 times daily (with breakfast & dinner). Multiple Vitamin (DAILY MULTIVITAMIN PO) Take 1 tablet by mouth Daily. Multiple Vitamins-Minerals ( MACULAR HEALTH) MISC Take 1 tablet by mouth Daily. [place]-3 Krill Oil 500 MG CAPS Take 1 capsule by mouth Daily. omeprazole (PRILOSEC) 20 mg capsule Take 20 mg by mouth every morning (before breakfast ). Potassium Gluconate 550 MG TABS Take 550 mg by mouth. As needed for leg discomfort, 1-2 times a month Probiotic Product (PROBIOTIC DAILY PO) Take by mouth Daily. Propylene Glycol (SYSTANE BALANCE) 0.6 % SOLN Apply 1 drop to eye 4 times daily. tocopherol (VITAMIN E) 400 units capsule Take 400 Units by mouth Daily. Turmeric 500 MG CAPS Take 500 mg by mouth Daily. No current facility-administered medications for this visit. Family Medical History: family history includes Diabetes in her brother and sister; Heart d isease in her brother, father, and mother. indicated that her mother is . She indicated that her father is . She indic ated that her sister is alive. She indicated that her brother is alive. She indicated that b oth of her daughters are alive. She indicated that her son is alive. 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 Review of Systems: Constitutional: Denies unexplained fevers, chills, sweats, significant recent weight reid ge. Eyes:Denies sudden loss of vision, diplopia, blurred vision. ENT: Denies loss of hearing, vertigo, nasal or sinus congestion, bleeding gums or poor de ntal repair. Card:Denies exertional substernal chest heaviness, leg pain. Denies palpitations, orthopn ea, ankle edema, presyncope. Resp: Mild asthma GI: Denies nausea, vomiting, abdominal pain, diarrhea, constipation, hematochezia. : Denies dysuria, pyuria, hematuria, frequency, incontinence MS: Mild DJD Neuro: Denies seizures, strokes, loss of consciousness, dysesthesias or paresthesias, syn cope, concussions. Psych: Denies: depression, anxiety, panic, past history physical or sexual abuse, severe traumatic experiences Endocrine: Denies heat or cold intolerance Heme: Denies easy bruising or prolonged bleeding. No history of transfusions Allergic/Immunologic: Has seasonal allergies PE: BP 126/80 mmHg | Pulse 59 | Resp 16 | Ht 1.521 m (4' 11.9") | Wt 60.963 kg (134 lb 6.4 oz) | BMI 26.35 kg/m2 | SpO2 98% Gen: obese and not in acute distress HEENT:Head: Normocephalic, no lesions, without obvious abnormality. Eye: Normal external eye, conjunctiva, lids cornea, DOMINGA. Nose: Normal external nose, mucus membranes and septum. Pharynx: Dental Hygiene adequate. Normal buccal mucosa. Mallampati 2. Neck / Thyroid: Supple, no masses, nodes, nodules or enlargement. Pulm: lungs clear to auscultation Card: regular rate and rhythm, S1, S2 normal, no murmur, click, rub or gallop GI: soft and normal bowel sounds : Not examined Rectal: Not Examined Ext: peripheral pulses normal, no pedal edema, no clubbing or cyanosis Skin:no rashes Neuro:Grossly normal Psych:age appropriate and casually dressedoriented to time, place and person, mood and aff ect are within normal limits, pt is a good historian; no memory problems were noted Heme: No cervical LN Questionnaires Review: The score of 6 on the [place] Sleepiness scale suggests insignifican t excessive daytime sleepiness. The score of 9 on the Insomnia Severity Scale suggests that the patient has minimal dissatisfaction with the quality of sleep. The score of 1 on the Bec k Depression Inventory is consistent with minimal depression. The score of 2 on the Marti Anx iety Inventory suggests minimal recognized anxiety. The SF36v2 demonstrates that she scores above the mean on all subscales and scales. Assessment: PRABHJOT: I suspect that the patient actually has PRABHJOT that is responsible for her sl eep symptoms. I have discussed in detail the pathophysiology of Obstructive Sleep Apnea with the patient. I've discussed that during NREM sleep the skeletal muscles relax and in REM sl eep the skeletal muscles are paralyzed. The muscles that support the back of the throat (the tongue in particular) also relax during NREM sleep and are paralyzed in REM sleep and when this occurs, the back of the throat collapses some. In some patients with a smaller back of the throat, this can result in obstruction to the flow of air. This is fundamentally what oc curs in PRABHJOT. This can cause repetitive obstruction to the flow of air all night long cause a person with PRABHJOT to awaken repeatedly at night to "open" the back of the throat. If airflow is significantly restricted, blood oxygen levels can fall. The combination of the repetitive awakenings at night and low oxygen levels lead to numerous other physiologic abnormalities which can result in nocturia, nocturnal heartburn, night sweats, morning dry mouth, morning headache, and daytime fatigue/sleepiness. Additionally, PRABHJOT can cause hypertension and it dr amatically increases the risk of heart disease, heart attack, and stroke. It may play a caus ative role in obesity and AODM. Untreated PRABHJOT also dramatically increases the risk of fall a sleep car accidents. Treatment can help with all of these issues. The various forms of treat ment of PRABHJOT were discussed with the patient including 1) Conservative therapy which typicall y includes weight loss, avoidance of sleep deprivation, avoidance of alcohol, avoidance of s edative medications, avoidance of smoking, and positional therapy (non-supine sleeping); 2) Positive Airway Pressure therapy (which is effective in the vast majority of patients but co mpliance can be an issue); 3) Dental Appliance Therapy (which is effective for some patients , typically with mild PRABHJOT, but compliance is typically good); 4) Expiratory Positive Airway Pressure - which involves passively increasing EPAP pressures applying a "one-way" valve typ e device (that looks like a "bandaid") over the nares at night which can be effective for ve ry mild PRABHJOT; 5) Surgical intervention - including Phase I surgery (which typically involves T&A, UPPP, Genioglossus Advancement, Hyoid Suspension) and Phase II surgery (Bimandibular-Ma xillary Facial Advancement) - the surgical solution to PRABHJOT is complicated and typically invo lves several operations; and 6) Hypoglossal Nerve Stimulation Therapy. Parasomnia: The sleep related groaning and moving has happened only once. It could be REM sleep behavior disorder or just partial arousals secondary to PRABHJOT. AODM: Treating PRABHJOT, if present, can improve diabetic control. Plan: PSG with f/u thereafter. Patient Active Problem List Diagnosis Osteoporosis Diabetes type 2, controlled PRABHJOT (obstructive sleep apnea) Macular degeneration Glaucoma GERD (gastroesophageal reflux disease) Asthma Today, 60 minutes was spent face to face with the patient; the majority of time was spent c ounseling regarding PRABHJOT and sleep. imon, Huy Grover Jr., MD - 05/28/2015 11:01 AM PDTFormatting of this note might be different from the origin al. 05/28/15 1100 Marti Depression Inventory-II Depression Score 1 - Minimal depression Insomnia Severity Index Insomnia Severity Index 9 [place] Sleepiness Scale Sitting and reading 0 Watching TV 2 Sitting, inactive in a public place (e.g. a theatre or a meeting) 2 As a passenger in a car for an hour without a break 1 Lying down to rest in the afternoon when circumstances permit 1 Sitting and talking to someone 0 Sitting quietly after a lunch without alcohol 0 In a car, while stopped for a few minutes in traffic 0 Total score 6 SF-36v2 Score PF 57.03 RP 56.85 BP 57.89 GH 60.08 VT 61.46 SF 56.85 RE 55.88 MH 61.27 PCS 57.07 MCS 59.18 documented in th is encounter Plan of Treatment + + +--------+ + + | Name | Type | Priori | Associated Diagnoses | Order Schedule | | | | ty | | | + + +--------+ + + | Ambulatory Referral | Outpatient | Routin | PRABHJOT (obstructive | Ordered: 05/28/2015 | | to Sleep Studies | Referral | e | sleep apnea) | | + + +--------+ + + documented as of this encounter Visit Diagnoses + + | Diagnosis | + + | PRABHJOT (obstructive sleep apnea) - Primary Obstructive sleep apnea (adult) (pediatric) | + + | Parasomnia Other dysfunctions of sleep stages or arousal from sleep | + + | Diabetes type 2, controlled (HCC) Type II or unspecified type diabetes mellitus | | without mention of complication, not stated as uncontrolled | + + documented in this encounter
--- OUTSIDE RECORDS SUMMARY | ~2020-05-06 | XMS | Encounter Summary ---
Demographics + + + | Address | [address] | | | [place] [address] | + + + | Home Phone | | + + + | Preferred Language | Unknown | + + + | Marital Status | | + + + | Buddhism Affiliation | Unknown | + + + | Race | Unknown | + + + | Ethnic Group | Unknown | + + + Author + + + | Author | [facility] | | | and [place] | + + + | Organization | [facility] | | | and [place]jiana | [...] [place] | | | | | [address] | | + + + + + Care Team Providers + +------+ + | Care Circulation Representative Name | Role | Phone | + +------+ + | Eliud Hammond MD | PCP | | + +------+ + Reason for Visit +--------+--------+ + | Reason | Onset | Comments | | | Date | | +--------+--------+ + | Other | 08/06/ | | | | 2014 | | +--------+--------+ + Encounter Details +--------+ + + + + | Date | Type | Department | Care Team | Description | +--------+ + + + + | 08/06/ | Telephone | [facility] | Huy Brown | Yee | | 2014 | | SLEEP DISORDER [address] | MD Sudhir [address] | | | | | [address] [place] | [address] [place] | | | | | [place] [address] | [place] [address] | | | | | [phone] | [phone] | | | | | | | [...] + + documented as of this encounter Miscellaneous Notes Telephone Encounter - Huy Brown Jr., MD - 08/13/2015 8:30 AM PDTOK. She should try to sleep on her sides and not on her back. RDS elephone Natalya Minor CMA - 08/06/2015 10:44 AM PDTPatient called to let Dr.Simon lavon house she canceled her appointment with Dr. Bucio about getting a mouth piece and does not want to proceed down this road. 10:4 7 AM PDTdocumented in this encounter Plan of Treatment Not on filedocumented as of this encounter Visit Diagnoses Not on filedocumented in this encounter"
--- OUTSIDE RECORDS SUMMARY | ~2020-05-06 | XMS | Encounter Summary ---
Demographics + + + | Address | [address] | | | [place] [address] | + + + | Home Phone | | + + + | Preferred Language | Unknown | + + + | Marital Status | | + + + | Sikh Affiliation | NRP | + + + [...] | Andrzej Campos | ECON | [address] | | | | | [place] | | | | | [address] | | + + + + + Care Team Providers + +------+ + | Care Harmonica Maker Name | Role | Phone | + +------+ + | Carlo Soto MD | PCP | | + +------+ + Encounter Details +--------+--------+ + + + | Date | Type | Department | Care Team | Description | +--------+--------+ + + + | 07/31/ | Travel | | | | | [...] | | 2020 | Visit | | [address] | | | | | | [address] | | | | | | [place], [place] | | | | | | [address] | | | | | | [phone] | | | | | | | | +--------+---------+ + + + | 07/29/ | Office | Ophthalmology | Jeferson Villarreal MD | | | 2020 | Visit | | [address] | | | | | [address] | | | | | | [place], [place] | | | | | | [address] | | | | | | [phone] | | | | | | | | +--------+---------+ + + + documented as of this encounter Visit Diagnoses Not on filedocumented in this encounter"
--- OUTSIDE RECORDS SUMMARY | ~2020-05-06 | XMS | Encounter Summary ---
Demographics + + + | Address | [address] | | | [place] [address] | + + + | Home Phone | | + + + | Preferred Language | Unknown | + + + | Marital Status | | + + + | Baptist Affiliation | NRP | + + + | Race | White | + + + | Ethnic Group | Not or | + + + Author + + + | Author | [facility] | + + + | Organization | [facility] | + + + | Address [...] [place] | | | | | [address] | | + + + + + Care Team Providers + +------+ + | Care Dye Range Operator Cloth Name | Role | Phone | + +------+ + | Carlo Soto MD | PCP | | + +------+ + Reason for Visit + + + | Reason | Comments | + + + | Follow-up encounter | | + + + Benefits Check [...] | | | | | | | [address] | | | | | | [address] | | | | | | | [place], [place] | | | | | | | [address] | | | | | | | Phone: | | | | | | | [phone] | | | | | | | Fax: | | | | | | | [phone] | +--------+--------+ + + + + Encounter Details +--------+---------+ + + + | Date | Type | Department | Care Team | Description | +--------+---------+ + + + | 07/13/ | Office | [facility] | Horace Tan MD | Bilateral | | 2016 | Visit | [facility] | [address] | nonexudative | | | | [facility] | [address] | age-related macular | | | | [facility] | [place], [place] | degeneration | | | | [facility] [place], | [address] | (Primary Dx) | | | | [place] [address] | [phone] | | | | | [phone] | | | +--------+---------+ + + + Social History [...] Instructions Patient Instructions Horace Tan MD - 07/13/2016 12:58 PM PDTAmsler Grid Your doctor has recommended using an [...] time!) Fix your gaze on the black [place] in the center of the grid. Use [...] encounter Progress Notes Horace Tan MD - 07/13/2016 12:57 PM PDT [facility] Progress Note 07/13/2016 Assessment & Plan: 75 y.o. female Nonexudative age-related macular degeneration, bilateral, intermediate dry stage Vitelliform OU Non-exudative AMD - no signs of conversion Observe Call for decreased vision, increased distortion, increased pain, new floaters or flashing l ights Follow up: Return in about 4 months (around 11/12/2016). OCT CMT Description Right 290 (05/17/17 1400) Comments:: Drusen, pseudo-vitelliform material Left 414 (05/17/17 1400) Comments:: Drusen, psuedo-vitelliform material Chief Complaint: Follow-up encounter Initial History: Pt st's her va is "Not good." Pt st's she has not noticed anymore changes in her amsler grid since her last exam OD. Pt did have an SLT OS recently. Pt is taking Macu health as her eye vitamin. Pt st's today she has a espinal area in the center of her vision OS. Pt st's she does get th is off and on. Pt has also noticed sparkley lights in OD at approx 4* off and on but it is occuring daily. Physician HPI: Following up per recommendation with no new issues, including eye pain, decreased vision, i ncreased floaters or increased distortion Pain: No pain (0 of 0-10) ROS Positive for: Gastrointestinal (Acid Reflux), Musculoskeletal, Eyes Negative for: Constitutional, Neurological, Skin, Genitourinary, HENT, Endocrine, Cardiova scular, Respiratory, Psychiatric, Allergic/Imm, Heme/Lymph Last edited by Deborah Cole on 07/13/2016 10:40 AM. (History) Current Outpatient Prescriptions (Ophthalmic Medications) Medication Sig CARBOXYMETHYLCELL/HYPROMELLOSE (GENTEAL GEL OPHT) Instill in eye as needed. COMBIGAN PROPYLENE GLYCOL (SYSTANE BALANCE OPHT) Instill in [...] Caesarean section x3 Excision of gall bladder Social History Substance Use Topics Smoking status: Never Smoker Smokeless tobacco: Never Used Alcohol use 4.2 oz/week 7 Glasses of wine per week Family history includes Heart Disease in her brother, father, and mother and Macular degene ration in her father. There is no history of Cancer. 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
--- OUTSIDE RECORDS SUMMARY | ~2020-05-06 | XMS | Clinical Summary ---
Demographics + + + | Address | [address] | | | [place] [address] | + + + | Home Phone | | + + + | Preferred Language | Unknown | + + + | Marital Status | | + + + | Catholic Affiliation | Unknown | + + + | Race | Unknown | + + + | Ethnic Group | Unknown | + + + Author + + + | Author | [facility] | | | and [place]jiana | + + + | Organization | [facility] | | | and [place] | [...] [place] | | | | | [address] | | + + + + + Care Team Providers + +------+ + | Care Aed Trainer Name | Role | Phone | + +------+ + | Eliud Hammond MD | PCP | | + +------+ + Allergies + + + + + + | Active Allergy | Reactions | Severity | Noted | Comments | | | | | Date | | + + + + + + | Cephalexin | Rash | Low | 05/28/20 | | | | | | 15 | | + + + + + + | Red Dye | Hives | | 05/28/20 | | | | | | 15 | | + + + + + + Medications + + + +---------+------+------+-------+ | Medication | Sig | Dispensed | Refills | Star | End | Statu | | | | | | t | Date | s | | | | | | Date | | | + + + +---------+------+------+-------+ | | 1 drop 2 times | | 0 | | | Activ | | brimonidine-timolol | daily. | | | | | e | | (COMBIGAN) 0.2-0.5% | | | | | | | | ophthalmic solution | | | | | | | + + + +---------+------+------+-------+ | Propylene Glycol | Apply 1 drop to eye | | 0 | | | Activ | | (SYSTANE BALANCE) | 4 times daily. | | | | | e | | 0.6 % SOLN | | | | | | | + + + +---------+------+------+-------+ | hypromellose | Place 1 drop into | | 0 | | | Activ | | (GENTEAL MILD) 0.2 % | both eyes nightly. | | | | | e | | ophthalmic solution | | | | | | | + + + +---------+------+------+-------+ | levothyroxine | Take 75 mcg by mouth | | 0 | | | Activ | | (SYNTHROID, | every morning | | | | | e | | LEVOTHROID) 75 MCG | (before breakfast). | | | | | | | tablet | | | | | | | + + + +---------+------+------+-------+ | omeprazole | Take 20 mg by mouth | | 0 | | | Activ | | (PRILOSEC) 20 mg | every morning | | | | | e | | capsule | (before breakfast). | | | | | | + + + +---------+------+------+-------+ | metFORMIN | Take 500 mg by mouth | | 0 | | | Activ | | (GLUCOPHAGE) 500 mg | 2 times daily (with | | | | | e | | tablet | breakfast & | | | | | | | | dinner). | | | | | | + + + +---------+------+------+-------+ | fluticasone | Inhale 1 puff into | | 0 | | | Activ | | (FLOVENT HFA) 110 | the lungs 2 times | | | | | e | | mcg/puff inhaler | daily. | | | | | | + + + +---------+------+------+-------+ | CHLORPHENIRAMINE | Take 2 mg by mouth | | 0 | | | Activ | | MALEATE PO | as needed. | | | | | e | + + + +---------+------+------+-------+ | diphenhydrAMINE | Take 25 mg by mouth | | 0 | | | Activ | | (BENADRYL) 25 mg | every 6 hours as | | | | | e | | tablet | needed for Itching. | | | | | | + + + +---------+------+------+-------+ | doxylamine | Take 25 mg by mouth | | 0 | | | Activ | | (UNISOM) 25 mg | nightly as needed | | | | | e | | tablet | for Insomnia. | | | | | | + + + +---------+------+------+-------+ | Multiple Vitamin | Take 1 tablet by | | 0 | | | Activ | | (DAILY MULTIVITAMIN | mouth Daily. | | | | | e | | PO) | | | | | | | + + + +---------+------+------+-------+ | ascorbic acid | Take 500 mg by mouth | | 0 | | | Activ | | (VITAMIN C) 500 mg | Daily. | | | | | e | | tablet | | | | | | | + + + +---------+------+------+-------+ | Cholecalciferol | Take 1,000 Units by | | 0 | | | Activ | | (VITAMIN D-3) 13114 | mouth Daily. | | | | | e | | units CAPS | | | | | | | + + + +---------+------+------+-------+ | tocopherol | Take 400 Units by | | 0 | | | Activ | | (VITAMIN E) 400 | mouth Daily. | | | | | e | | units capsule | | | | | | | + + + +---------+------+------+-------+ | CRANBERRY PO | Take 4,200 mg by | | 0 | | | Activ | | | mouth Daily. | | | | | e | + + + +---------+------+------+-------+ | Glucosamine HCl | Take 2,000 mg by | | 0 | | | Activ | | (GLUCOSAMINE | mouth Daily. | | | | | e | | HYDROCHLORIDE) 1,000 | | | | | | | | mg tablet | | | | | | | + + + +---------+------+------+-------+ | Gregory-3 Krill Oil | Take 1 capsule by | | 0 | | | Activ | | 500 MG CAPS | mouth Daily. | | | | | e | + + + +---------+------+------+-------+ | Multiple | Take 1 tablet by | | 0 | | | Activ | | Vitamins-Minerals | mouth Daily. | | | | | e | | ([facility]) | | | | | | | | MISC | | | | | | | + + + +---------+------+------+-------+ | Cod Liver Oil (COD | Take 415 mg by mouth | | 0 | | | Activ | | LIVER PO) | Daily. | | | | | e | + + + +---------+------+------+-------+ | Probiotic Product | Take by mouth | | 0 | | | Activ | | (PROBIOTIC DAILY PO) | Daily. | | | | | e | + + + +---------+------+------+-------+ | Turmeric 500 MG | Take 500 mg by mouth | | 0 | | | Activ | | CAPS | Daily. | | | | | e | + + + +---------+------+------+-------+ | Jerry Zingiber | Take 550 mg by mouth | | 0 | | | Activ | | officinalis, (JERRY | Daily. | | | | | e | | ROOT) 550 MG CAPS | | | | | | | + + + +---------+------+------+-------+ | Cinnamon 500 MG | Take 1,000 mg by | | 0 | | | Activ | | TABS | mouth Daily. | | | | | e | + + + +---------+------+------+-------+ | Potassium | Take 550 mg by | | 0 | | | Activ | | Gluconate 550 MG | mouth. As needed for | | | | | e | | TABS | leg discomfort, 1-2 | | | | | | | | times a month | | | | | | + + + +---------+------+------+-------+ Active Problems + + + | Problem | Noted Date | + + + | Osteoporosis | | + + + | Diabetes type 2, controlled | | + + + | PRABHJOT (obstructive sleep apnea) | | + + + | Macular degeneration | | + + + | Glaucoma | | + + + | GERD (gastroesophageal reflux disease) | | + + + | Asthma | | + + + Family History + + +------+ + | Medical History | Relation | Name | Comments | + + +------+ + | Diabetes | Brother | | | + + +------+ + | Heart disease | Brother | | | + + +------+ + | Heart disease | Father | | | + + +------+ + | Heart disease | Mother | | | + + +------+ + | Diabetes | Sister | | | + + +------+ + + +------+ + + | Relation | Name | Status | Comments | + +------+ + + | Brother | | Alive | | + +------+ + + | Daughter | | Alive | | + +------+ + + | Daughter | | Alive | | + +------+ + + | Father | | | heart | | | | (Age | | | | | 92) | | + +------+ + + | Mother | | | Heart | | | | (Age | | | | | 68) | | + +------+ + + | Sister | | Alive | | + +------+ + + | Son | | Alive | snores | + +------+ + + Social History + +-------+ +--------+------+ [...] on file | | + + + Last Filed Vital Signs + + + + + | Vital Sign | Reading | Time Taken | Comments | + + + + + | Blood Pressure | 124/82 | 07/22/2015 11:04 AM | | | | | PDT | | + + + + + | Pulse | 61 | 07/22/2015 11:04 AM | | | | | PDT | | + + + + + | Temperature | - | - | | + + + + + | Respiratory Rate | 14 | 07/22/2015 11:04 AM | | | | | PDT | | + + + + + | Oxygen Saturation | 98% | 07/22/2015 11:04 AM | | | | | PDT | | + + + + + | Inhaled Oxygen | - | - | | | Concentration | | | | + + + + + | Weight | 60 kg (132 lb 4.8 | 07/22/2015 11:04 AM | | | | oz) | PDT | | + + + + + | Height | 152.1 cm (4' 11.9") | 05/28/2015 10:49 AM | | | | | PDT | | + + + + + | Body Mass Index | 25.92 | 05/28/2015 10:49 AM | | | | | PDT | | + + + + + Plan of Treatment + + +-------+ + | Health Maintenance | Due Date | Last | Comments | | | | Done | | + + +-------+ + | Vaccine: | | | | | Dtap/Tdap/Td (1 - | 0 | | | | Tdap) | | | | + + +-------+ + | Vaccine: Zoster (1 | | | | | of 2) | 1 | | | + + +-------+ + | Breast Cancer | | | | | Screening | 6 | | | + + +-------+ + | Vaccine: | | | | | Pneumococcal 65+ (1 | 6 | | | | of 1 - PPSV23) | | | | + + +-------+ + | Vaccine: Influenza | | | | | (Season Ended) | 0 | | | + + +-------+ + Results Not on filefrom Last 3 Months Insurance + +--------+ +--------+ +---------+--------+ | Payer | Benefi | Subscriber | Effect | Phone | Address | Type | | | t Plan | ID | yareli | | | | | | / | | Dates | | | | | | Group | | | | | | + +--------+ +--------+ +---------+--------+ | MEDICARE | MEDICA | [id number] | | [phone] | | Medica | | | RE | | 011-Pr | 5 | | re | | | PART A | | esent | | | | | | AND B | | | | | | + +--------+ +--------+ +---------+--------+ | COMMERCIAL GENERIC | COMMER | [id number] | | | | PPO | | | CIAL | | 002-Pr | | | | | | PPO | | esent | | | | | | OTHER | | | | | | + +--------+ +--------+ +---------+--------+ + +--------+ +--------+ + + | Guarantor Name | Accoun | Relation to | Date | Phone | Billing Address | | | t Type | Patient | of | | | | | | | | | | + +--------+ +--------+ + + | Tonya Suresh | Person | Self [birth year] | [address] | | | al/Fam | | 1940 | [phone] | [place] [address] | | | maylin | | | 4 (Home) | | + +--------+ +--------+ + + Advance Directives + + + + + | Type | Date Recorded | Patient | Explanation | | | | Waste Disposal Leakage Tester | | + + + + + | Power of | | | | | Machine Hoop Maker | | | | + + + + + | Advance | | | | | Directive | | | | + + + + +
--- OUTSIDE RECORDS SUMMARY | ~2020-05-06 | XMS | Encounter Summary ---
Demographics + + + | Address | [address] | | | [place] [address] | + + + | Home Phone | | + + + | Preferred Language | Unknown | + + + | Marital Status | | + + + | Yazidi Affiliation | NRP | + + + [...] | Andrzej Campos | ECON | [address] | | | | | [place] | | | | | [address] | | + + + + + Care Team Providers + +------+ + | Care Pile Driver Operator Helper Name | Role | Phone | + +------+ + | Carlo Soto MD | PCP | | + +------+ + Encounter Details +--------+--------+ + + + | Date | Type | Department | Care Team | Description | +--------+--------+ + + + | 07/17/ | Travel | | | | | 2019 | | | | | +--------+--------+ + [...] | | 2020 | Visit | | [address] | | | | | | [address] | | | | | | [place], [place] | | | | | | [address] | | | | | | [phone] | | | | | | | | +--------+---------+ + + + | 07/29/ | Office | Ophthalmology | Jeferson Villarreal MD | | | 2020 | Visit | | [address] | | | | | [address] | | | | | | [place], [place] | | | | | | [address] | | | | | | [phone] | | | | | | | | +--------+---------+ + + + documented as of this encounter Visit Diagnoses Not on filedocumented in this encounter"
--- OUTSIDE RECORDS SUMMARY | ~2020-05-06 | XMS | Encounter Summary ---
Demographics + + + | Address | [address] | | | [place] [address] | + + + | Home Phone | | + + + | Preferred Language | Unknown | + + + | Marital Status | | + + + | Mormon Affiliation | NRP | + + + | Race | White | + + + | Ethnic Group | Not or | + + + Author + + + | Author | [facility] | + + + | Organization | [facility] | + + + | Address [...] [place] | | | | | [address] | | + + + + + Care Team Providers + +------+ + | Care Gaggerman Name | Role | Phone | + [...] | | | | | | | [address] | | | | | [address] | | | | | | | [place], [place] | | | | | | | [address] | | | | | | | Phone: | | | | | | | [phone] | | | | | | | Fax: | | | | | | | [phone] | + +--------+ + + + + Encounter Details +--------+---------+ + + + | Date | Type | Department | Care Team | Description | +--------+---------+ + + + | 11/13/ | Office | [facility] | Jeferson Villarreal MD | Exudative | | 2020 | Visit | [place] [facility] | [address] | age-related macular | | | | [facility] | [address] | degeneration of left | | | | [facility] | [place], [place] | 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[place], | [address]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 | | | | [place] [address] | [phone] | neovascularization | | | | [phone] | | ([facility]); Exudative | | | | | | age-related macular | | | | | | degeneration of both | | | | | | eyes with active | | | | |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 | | | | | | neovascularization | | | | | | ([facility]) | +--------+---------+ + + + Social History [...] Instructions Patient Instructions Jeferson Villarreal MD - 11/13/2019 10:45 AM PSTReturn before scheduled vi sit with decreasing vision, distortion, or new shower of floaters. documented in this encounter Progress Notes Jeferson Villarreal MD - 11/13/2019 10:45 AM PST [facility] Progress Note 11/13/2019 Assessment & Plan: 79 y.o. 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 Very slight increase in fluid at 8W on T+E Wet/GA OD with resolved SRF, no recurrence PARQ Eylea OS, slight contraction of interval Observe OD Call for decreased vision, increased distortion, increased pain, new floaters or flashing l ights Follow up: Return in about 7 weeks (around 01/01/2020). Chief Complaint: Follow-up visit HPI: No change in vision observed. Denies flashes of light, floaters, or distortion OU. Ocular meds: Combigan BID OU No occupation listed. Current Outpatient Medications (Ophthalmic Medications) Medication Sig [...] mouth o nce daily. [facility] Capsules Reviewed: Allergies | Meds | Examination: See Ophthalmology Module Attestations: The attending physician is responsible for and agrees with the entire content of the note a nd has personally performed the HPI and the physical examination. Jeferson Villarreal MD docum ented in this encounter Plan of Treatment +--------+---------+ + + + | Date | Type | Specialty | Care Team | Description | +--------+---------+ + + + | 06/17/ Office | Ophthalmology | Jeferson Villarreal MD | | 2019 | Visit | | [address] | | | | | [address] | | | | | | [place], [place] | | | | | | [address] | | | | | | [phone] | | | | | | | | +--------+---------+ + + + | 07/29/ | Office | Ophthalmology | Jeferson Villarreal MD | | | 2019 | Visit | | [address] | | | | | [address] | | | | | | [place], [place] | | | | | | [address] | | | | | | [phone] | | | | | | | | +--------+---------+ + + + documented as of this encounter Procedures + +--------+ + + + | Procedure Name | Priori | Date/Time | Associated Diagnosis | Comments | | | ty | | | | + +--------+ + + + | EYLEA INJ - OS - | Routin | 11/13/2019 | Exudative | Results for this | | LEFT EYE | e | 12:30 PM | [...] + | OCT, RETINA | Routin | 11/13/2019 | Exudative | Results for this | | | e | 12:16 PM | age-related macular | procedure are in the | | | | PST | degeneration of left | results section. | | | | | eye with active | | | | |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 | | | | | | neovascularization | | | | | | (HCC) | | + +--------+ + + + documented in this encounter Results HENOK INJ - OS - LEFT EYE (11/13/2019 12:30 PM PST) + + + | Narrative [...] | | | | | | Injection: | | | 2 mg aflibercept 2 mg/0.05 mL | | | [facility]: 07803-573-68, Lot: [id number], Expiration date: 10/05/2020 | | | Route: intravitreal, Site: Left [...] | | + + + OCT, RETINA (11/13/2019 12:16 PM PST) + + + | Narrative | Performed At | + + + | [facility]lee[facility] [employer] [employer] | [facility] | | [facility] [...] [facility] | [address] | [place] [address] | | | [place] | Kristy. | | | + + + + + documented in this encounter Visit Diagnoses + + | Diagnosis | + + | Exudative age-related macular degeneration of left eye with active choroidal | | neovascularization (HCC) | + + | Exudative age-related macular [...] + | aflibercept intravitreal | Given | 11/13/19 | 2 mg | | Left Eye | | injection 2 mg 2 mg, | | 20 12:30 | | | | | intravitreal, ONCE PRN (IPROC), 1 | | PM PST | | | | | dose, Starting 11/13/19 at | | | | | | | 1230, Until Mon11/13/19 at 1230 | | | | | | + +--------+ +------+------+ + +---+---+ | | | +---+---+ documented in this encounter"
--- OUTSIDE RECORDS SUMMARY | ~2020-05-06 | XMS | Encounter Summary ---
Demographics + + + | Address | [address] | | | [place] [address] | + + + | Home Phone | | + + + | Preferred Language | Unknown | + + + | Marital Status | | + + + | Zoroastrianism Affiliation | NRP | + + + [...] | Andrzej Campos | ECON | [address] [facility] | | | | | [place] | | | | | [address] | | + + + + + Care Team Providers + +------+ + | Care Tray Casting Machine Operator Name | Role | Phone | + +------+ + | Carlo Soto MD | PCP | | + +------+ + Reason for Visit AUTH/CERT +--------+--------+ + + + + | Status | Reason | Specialty | Diagnoses / | Referred By | Referred To | | | | | Procedures | Contact | Contact | +--------+--------+ + + + + | | | | | | | +--------+--------+ + + + + Encounter Details +--------+ + + + + | Date | Type | Department | Care Team | Description | +--------+ + + + + | 10/28/ | Hospital | Diagnostic Imaging | | | | 2014 | Encounter | Services at [facility] | | | | | | [address] | | | | | | Katelyn Mckeon [facility] | | | | | | [address] | | | | | | [place], [place] | | | | | | [address] | | | | | | [phone] | | | +--------+ + + + [...] + + + +---------+ + + | metFORMIN 500 mg | Take by mouth. | | 0 | | | | oral tablet | | | | | | + [...] [address] | | | | | | [facility], [place] | | | | | | [address] | | | | | | [phone] | | | | | | | | +--------+---------+ + + + | 07/29/ | Office | Ophthalmology | Jeferson Villarreal MD | | | 2019 | Visit | | [address] | | | | | [address] | | | | | | [facility], [place] | | | | | | [address] | | | | | | [phone] | | | | | | | | +--------+---------+ + + + documented as of this encounter Procedures + +--------+ + + + | Procedure Name | Priori | Date/Time | Associated Diagnosis | Comments | | | ty | | | | + +--------+ + + + | ANESTHESIA/SEDATION | | 10/28/2015 | | Results for this | | | | 12:00 AM | | procedure are in the | | | | PST | | results section. | + +--------+ + + + documented in this encounter Results ANESTHESIA/SEDATION (10/28/2015 12:00 AM PST) + + + | Narrative | Performed At | + + + | | | + + + documented in this encounter Visit Diagnoses + + | Diagnosis | + + | Bone lesion Disorder of bone and cartilage, unspecified | + + documented in this encounter"
--- OUTSIDE RECORDS SUMMARY | ~2020-05-06 | XMS | Encounter Summary ---
Demographics + + + | Address | [address] | | | [place] [address] | + + + | Home Phone | | + + + | Preferred Language | Unknown | + + + | Marital Status | | + + + | Anabaptism Affiliation | NRP | + + + [...] | Andrzej Campos | ECON | [address] [facility] | | | | | [place] | | | | | [address] | | + + + + + Care Team Providers + +------+ + | Care Job Putter Up And Ticket Preparer Name | Role | Phone | + +------+ + | Carlo Soto MD | PCP | | + +------+ + Reason for Visit + + + | Reason | Comments | + + + | Comprehensive eye | | | examination | | + + + Benefits Check [...] | | | | | | | [address] | | | | | | [address] | | | [address] | | | | | | | [place], [place] | | | | | | | [address] | | | | | | | Phone: | | | | | | | [phone] | | | | | | | Fax: | | | | | | | [phone] | +--------+--------+ + + + + Encounter Details +--------+---------+ + + + | Date | Type | Department | Care Team | Description | +--------+---------+ + + + | 03/16/ | Office | [facility] | Horace Tan MD | Bilateral | | 2016 | Visit | [place] [facility] | [address] | nonexudative | | | | [facility] | [address] | age-related macular | | | | [facility] | [place], [place] | degeneration | | | | Clinic [place], | [address] | (Primary Dx); | | | | [place] [address] | [phone] | Nonneovascular | | | | [phone] | | age-related macular | | | | | | degeneration | +--------+---------+ + + + Social History [...] encounter Progress Notes Horace Tan MD - 03/22/2016 10:24 AM PDT [facility] Progress Note 03/16/2016 Assessment & Plan: 75 y.o. 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 Observe/education - variant of dry AMD 2. Amsler 3. AREDS 4. F/u 4 months for assessment of interval change Call for decreased vision, increased distortion, increased pain, new floaters or flashing l ights Follow up: Return in about 4 months (around 07/17/2016). 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 Peralta and Dr. Farley for eval of possible pattern/vitelli form dystrophy vs macular degeneration. Pt st's macular changes were 1st noted in 2007. At t hat time pt noticed she was having difficulty seeing in low light conditions. Since then sx have gotten worse and she is having difficulty threading sewing needles & reading fine print . Pt is able to see to watch tv and drive but lighting is still a factor. Pt does note disto rtion OD when checking her amsler grid. Pt has noticed that OD has deteriorated in the past couple of years. Pt was dx as Type II NIDDM approx 1 year ago. Pt does not monitor BS at [facility]. Pt is due for A1C April 2016. Pt can't rem Physician HPI: Here as new patient, AMD vs. Pattern dystrophy No Pain ROS Positive for: Musculoskeletal (Osteoporosis), Endocrine (Type II NIDDM, Thyroid), Eyes (Gl aucoma OU, Dry Eyes, Cataracts OU) Negative for: Constitutional, Gastrointestinal, Neurological, Skin, Genitourinary, HENT, C ardiovascular, Respiratory, Psychiatric, Allergic/Imm, Heme/Lymph Last edited by Deborah Cole on 03/16/2016 1:25 PM. (History) Specialty History: No specialty comments on file. Current Outpatient Prescriptions (Ophthalmic Medications) Medication Sig brimonidine Instill 1 drop into both eyes two times daily. CARBOXYMETHYLCELL/HYPROMELLOSE (GENTEAL GEL OPHT) Instill in eye as needed. dorzolamide HCl-timolol maleate Instill 1 drop into both eyes two times daily. Current Outpatient Prescriptions (Other) Medication Sig CHLORPHENIRAMINE MALEATE (CHLOR-TRIMETON ORAL) Take by mouth as needed. diclofenac potassium Take 50 mg by mouth two times daily. diphenhydrAMINE Take 25 mg by mouth as needed. DOXYLAMINE SUCCINATE ORAL Take by mouth as needed. fluticasone Inhale 1 puff by mouth as needed. levothyroxine metFORMIN Take by mouth. MULTIVITAMIN ORAL Take by mouth. omeprazole Take by mouth. VIT A/C/E AC/ZNOX/CUPRIC OXIDE (EYE VITAMIN AND MINERALS ORAL) Take 1 tablet by mouth o nce daily. [facility] Capsules Past Medical History Diagnosis Date Diabetes (HCC) Hypothyroid Osteoporosis Osteoarthritis Glaucoma Cataract Past Surgical History Procedure Laterality Date Caesarean section x3 Excision of gall bladder History Substance Use Topics Smoking status: Never Smoker Smokeless tobacco: Never Used Alcohol Use: 4.2 oz/week 7 Glasses of wine per week family history includes Heart Disease in her brother, father, and mother and Macular degene ration in her father. There is no history of Cancer. Examination: See Ophthalmology Module Attestations: The analytical laboratory technician, 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, [...] [place] | | | | | | [address] | | | | | | [phone] | | | | | | | | +--------+---------+ + + + | 07/29/ | Office | Ophthalmology | Horace Tan MD | | | 2019 | Visit | | [address] | | | | | | [address] | | | | | | [place], [place] | | | | | | [address] | | | | | | [phone] | | | | | | | | +--------+---------+ + + + + + +--------+ + + | Name | Type | Priori | Associated Diagnoses | Order Schedule | | | | ty | | | + + +--------+ + + | CMPTR OPHTH DX IMG | Procedures | Routin | Bilateral | Expected: | | POST SEGMT | | e | nonexudative | 03/16/2016, Expires: | | | | | age-related macular | 09/16/2017 | | | | | degeneration | | | | | | Nonneovascular | | | | | | age-related macular | | | | | | degeneration | | + + +--------+ + + | COLOR PHOTOGRAPHY | Procedures | Routin | Bilateral | Expected: | | | | e | nonexudative | 03/16/2016, Expires: | | | | | age-related macular | 09/16/2017 | | | | | degeneration | | | | | | Nonneovascular | | | | | | age-related macular | | | | | | degeneration | | + + +--------+ + + | FUNDUS PHOTO | Procedures | Routin | Bilateral | Expected: | | AUTOFLUORESCENCE | | e | nonexudative | 03/16/2016, Expires: | | | | | age-related macular | 09/16/2017 | | | | | degeneration | | | | | | Nonneovascular | | | | | | age-related macular | | | | | | degeneration | | + + +--------+ + + documented as of this encounter Procedures + +--------+ + + + | Procedure Name | Priori | Date/Time | Associated Diagnosis | Comments | | | ty | | | | + +--------+ + + + | [place] CPTR OPHTH DX IMG | Routin | 03/16/2016 | Bilateral | Results for this | | POST SEGMT-RETINA | e | | nonexudative | procedure are in the | | | | | age-related macular | results section. 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
--- OUTSIDE RECORDS SUMMARY | ~2020-05-06 | XMS | Encounter Summary ---
Demographics + + + | Address | [address] | | | [place] [address] | + + + | Home Phone [...] + + + | Author | [facility] | + + + | Organization | [facility] | + + + | Address | Unknown | + + + | Phone | Unavailable | + + + Support + + + + + | Name | Relationship | Address | Phone | + + + + + | Andrzej Campos | ECON | [address] | | | | | [place] | | | | | [address] | | + + + + + Care Team Providers + +------+ + | Care Plastic Boat Buffer Name | Role | Phone | + +------+ + | Carlo Soto MD | PCP | | + +------+ + Reason for Visit + + + | Reason | Comments | + + + | Medical Eye | | | Examination | | + + + Encounter Details +--------+---------+ + + + | Date | Type | Department | Care Team | Description | +--------+---------+ + + + | 07/17/ | Office | [facility] | Kendrick Yang MD | Peripheral corneal | | 2019 | Visit | [place] [facility] | [address] | degeneration of both | | | | [place] [address] | [address] | eyes (Primary Dx) | | | | [place], [place] | [place], [place] | | | | | [address] | [address] | | | | | [phone] | [phone] | | | | | | | [...] documented as of this encounter Progress Notes Kendrick Yang MD - 07/17/2019 3:00 PM PDT [facility] Progress Note 07/17/2019 CC: Medical Eye Examination HPI: Tonya Suresh is a 78 y.o. female About 2 weeks ago I noticed a vertical line on my left eye on the white part next to the co rnea. Went to the ER because there was some pain just on that first day, but they said it wa s inconclusive. Seeing Dr. Ko and Maggy for Eyelea injections for AMD. 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 Villarreal/ 06/27/2019 Dr. Ko Last Injection: OD: Avastin 11W; OS: Avastin 4W POAG OU Social History Tobacco Use Smoking Status Never Smoker Smokeless Tobacco Never Used Past Medical History: Diagnosis Date Cataract Diabetes (HCC) Glaucoma Hypothyroid Osteoarthritis Osteoporosis FH: Family History Problem Relation Heart Disease Mother Macular degeneration Father Heart Disease Father Heart Disease Brother Cancer Neg Hx ROS Positive for: Gastrointestinal, Musculoskeletal, Endocrine, Eyes Negative for: Constitutional, Neurological, Skin, Genitourinary, HENT, Cardiovascular, Res piratory, Psychiatric, Allergic/Imm, Heme/Lymph Last edited by Sandy Fox on 07/17/2019 3:04 PM. (History) Allergies Allergen Reactions Miacalcin [Calcitonin ([place])] Rash Red Dye Hives Zyrtec [Cetirizine Hcl] Facial Swelling Cephalexin Rash Current Outpatient Medications (Ophthalmic Medications) Medication Sig [...] by mouth o nce daily. [facility] Capsules EXAM: See Ophthalmology Module for Examination Diagnostic Studies: No diagnostic studies ordered this encounter. IMPRESSION: 78 y.o. female with Ophthalmologic problems: Peripheral corneal degeneration of both eyes Patient noted vertical white line on peripheral cornea OS about 1 week after injection last month. It was associated with 1 day of pain. Given appearance and prior notes showing inter palpebral limbal corneal thinning/opacity, this is not likely new but incidentally noted. As ymptomatic today. 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 less likely band K, PUK) . Discussed with patient in detail. -Reassurance -ATs prn -Return if any return of pain -Otherwise can continue routine follow-up and treatment with Dr. Villarreal for exudative AMD No follow-ups on file. Kendrick Yang MD [facility] [address] [facility] [place] [address] documented in this enc ounter Plan of [...] [place] | | | | | | [address] | | | | | | [phone] | | | | | | | | +--------+---------+ + + + | 07/29/ | Office | Ophthalmology | Jeferson Villarreal MD | | | 2019 | Visit | | [address] | | | | | | [address] | | | | | | [place] | | | | | | [address] | | | | | | [phone] | | | | | | | | +--------+---------+ + + + documented as of this encounter Visit Diagnoses + + | Diagnosis | + + | Peripheral corneal degeneration of both eyes - Primary Peripheral degenerations of | | cornea | + + documented in this encounter"
--- OUTSIDE RECORDS SUMMARY | ~2020-05-06 | XMS | Encounter Summary ---
Demographics + + + | Address | [address] | | | [place] [address] | + + + | Home Phone | | + + + | Preferred Language | Unknown | + + + | Marital Status | | + + + | Moravian Affiliation | NRP | + + + | Race | White | + + + | Ethnic Group | Not or | + + + Author + + + | Author | [facility] | + + + | Organization | [facility] | + + + | Address | Unknown | + + + | Phone | Unavailable | + + + Support + + + + + | Name | Relationship | Address | Phone | + + + + + | Andrzej Campos | ECON | [address] [facility] | | | | | [place] | | | | | [address] | | + + + + + Care Team Providers + +------+ + | Care Sequins Slinger Name | Role | Phone | + +------+ + | Carlo Soto MD | PCP | | + +------+ + Encounter Details +--------+ + + + + | Date | Type | Department | Care Team | Description | +--------+ + + + + | 03/02/ | Document-Sc | Health Information | Unknown . | | | 2016 | anned | Services [address] | | | | | [address] | | | | | | Mailcode: [id number] | | | | | | [facility] | | | | | | [place], [place] | | | | | | [address] | | | | | | [phone] | | | +--------+ + + + [...] [place] | | | | | | [address] | | | | | | [phone] | | | | | | | | +--------+---------+ + + + | 07/29/ | Office | Ophthalmology | Jeferson Villarreal MD | | | 2020 | Visit | | [address] | | | [address] | | | | | | [place], [place] | | | | | | [address] | | | | | | [phone] | | | | | | | | +--------+---------+ + + + documented as of this encounter Visit Diagnoses Not on filedocumented in this encounter"
--- OUTSIDE RECORDS SUMMARY | ~2020-05-06 | XMS | Encounter Summary ---
Demographics + + + | Address | [address] | | | [place] [address] | + + + | Home Phone [...] + + + | Author | [facility] | + + + | Organization | [facility] | + + + | Address | Unknown | + + + | Phone | Unavailable | + + + Support + + + + + | Name | Relationship | Address | Phone | + + + + + | Andrzej Campos | ECON | [address] | | | | | [place] | | | | | [address] | | + + + + + Care Team Providers + +------+ + | Care Wood Polisher Name | Role | Phone | + [...] | | | | | | | [address] | | | | | [address] | | | | | | | [place], [place] | | | | | | | [address] | | | | | | | Phone: | | | | | | | [phone] | | | | | | | Fax: | | | | | | | [phone] | +--------+--------+ + + + + Encounter Details +--------+---------+ + + + | Date | Type | Department | Care Team | Description | +--------+---------+ + + + | 06/27/ | Office | [facility] | Horace Tan MD | Nonexudative | | 2018 | Visit | [place] [facility] | [address] | age-related macular | | | | [facility] | [address] | degeneration, | | | | [facility] | [place], [place] | bilateral, | | | | Clinic [place], | [address] | intermediate dry | | | | [place] [address] | [phone] | stage; Exudative | | | | [phone] | | age-related macular | | | | | | degeneration of left | | | | | | eye with active | | | | |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 | | | | | | neovascularization | | | | | | ([facility]) | +--------+---------+ + + + Social History [...] AM PDT [facility] Progress Note 06/27/2018 Assessment & Plan: 77 [...] Hx Examination: See Ophthalmology Module Attestations: The generator technician, 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, [...] [address] | | | | | | [place], [place] | | | | | | [address] | | | | | | [phone] | | | | | | | | +--------+---------+ + + + | 07/29/ | Office | Ophthalmology | Horace Tan MD | | | 2019 | Visit | | [address] | | | | | | [address] | | | | | | [place], [place] | | | | | | [address] | | | | | | [phone] | | | | | | | [...] neovascularization | | | | | | ([facility]) | | + +--------+ + + + [...] bevacizumab 1.25 mg/0.05 mL | | | [facility]: [id number] | | | Lot: [id number]) | | | Expiration Date: 08/12/2018 | [...] Performed At | + + + | Store Clerk Cashier | [facility] | | [facility] | [address] | [place] [address] | | | [place] | Kristy. | [...]
--- OUTSIDE RECORDS SUMMARY | ~2020-05-06 | XMS | Encounter Summary ---
Demographics + + + | Address | [address] | | | [place] [address] | + + + | Home Phone | | + + + | Preferred Language | Unknown | + + + | Marital Status | | + + + | Presybeterian Affiliation | NRP | + + + [...] [place] | | | | | [address] | | + + + + + Care Team Providers + +------+ + | Care Application Trainer Name | Role | Phone | + +------+ + | Carlo Soto MD | PCP | | + +------+ + Encounter Details +--------+--------+ + + + | Date | Type | Department | Care Team | Description | +--------+--------+ + + + | 09/18/ | Travel | | | | | [...] | | 2020 | Visit | | [address] | | | | | | [address] | | | | | | [place], [place] | | | | | | [address] | | | | | | [phone] | | | | | | | | +--------+---------+ + + + | 07/29/ | Office | Ophthalmology | Jeferson Villarreal MD | | | 2020 | Visit | | [address] | | | | | [address] | | | | | | [place], [place] | | | | | | [address] | | | | | | [phone] | | | | | | | | +--------+---------+ + + + documented as of this encounter Visit Diagnoses Not on filedocumented in this encounter"
--- OUTSIDE RECORDS SUMMARY | ~2020-05-06 | XMS | Encounter Summary ---
Demographics + + + | Address | [address] | | | [place] [address] | + + + | Home Phone [...] | Andrzej Campos | ECON | [address] [facility] | | | | | [place] | | | | | [address] | | + + + + + Care Team Providers + +------+ + | Care Insect Control Aide Name | Role | Phone | + [...] + + | 10/28/ | Hospital | [address] | Kelli Enamorado MD | | | 2015 | Encounter | [address] | [address] | | | | | [address] [place] [address] | Katelyn Mckeon [place], | | | | | [place], [place] | [place] [address] | | | | | [address] | [phone] | | | | | [phone] | | | +--------+ + + + [...] + + + | Blood Pressure | 109/54 | 10/28/2015 5:30 PM | | | | | PST | | + + + + + | Pulse | 57 | 10/28/2015 5:30 PM | | | | | PST | | + + + + + | Temperature | 36.9 C (98.4 F) | 10/28/2015 3:57 PM | | | | | PST | | + + + + + | Respiratory Rate | 14 | 10/28/2015 5:30 PM | | | | | PST | | + + + + + | Oxygen Saturation | 95% | 10/28/2015 5:30 PM | | | | | PST | | + + + + + | Inhaled Oxygen | - | - | | | Concentration | | | | + + + + + | Weight | 58.5 kg (129 lb) | 10/28/2015 1:05 PM | | | | | PST | | + + + + + | Height | 149.9 cm (4' 11") | 10/28/2015 1:05 PM | | | | | PST | | + + + + + | Body Mass Index | 26.05 | 10/28/2015 1:05 PM | | | | | PST | | + + + + + documented in this encounter Discharge Instructions Instructions Barbi Saldana RN - 10/28/2015Home Care for Wounds Follow the guidelines below. Call your doctor if you notice any unusual symptoms. Remember you are under the influence of drugs. Do not drive, drink alcoholic beverages, sign legal do cuments or make major decisions during the next 24 hours. Wound Care: -Keep wound dry and clean How to Reach Your Doctor: After hours, weekends, and holidays, call Hospital Social Media Content Specialist at [phone]. Ask to have y our doctor paged. Dressings: -Keep the dressing on your wound dry -You may remove the dressing tomorrow. Call Your Doctor If If you see any of these signs, call your doctor right away. -Increase redness -Pus -Swelling -Red streaks -Hardness or firmness -Foul odor -Fever above 101 F -Tenderness -Increased bleeding -Increased pain not relieved by medicine Diet and Medicines: Eat your normal diet and take your usual medicines unless told otherwise by your doctor. documented in this encounter Medications at Time of Discharge [...] levothyroxine 75 | | | 0 | 10/05/20 | | | mcg oral tablet | [...] | | 2020 | Visit | | [address] | | | | | | [address] | | | | | | [place], [place] | | | | | | [address] | | | | | | [phone] | | | | | | | | +--------+---------+ + + + | 07/29/ Office | Ophthalmology | Jeferson Villarreal MD | | | 2020 | Visit | | [address] | | | [address] | | | | | | [place], [place] | | | | | | [address] | | | | | | [phone] | | | | | | | | +--------+---------+ + + + + +------+--------+ + + | Name | Type | Priori | Associated Diagnoses | Order Schedule | | | | ty | | | + +------+--------+ + + | SURGICAL PATHOLOGY | Lab | Routin | | LABS TO BE COLLECTED | | | | e | | IN RADIOLOGY for 1 | | | | | | Occurrences starting | | | | | | 10/28/2015 | + +------+--------+ + + documented as of this encounter Procedures + +--------+ + + + | Procedure Name | Priori | Date/Time | Associated Diagnosis | Comments | | | ty | | | | + +--------+ + + + | CT BIOPSY BONE | Routin | 10/28/2015 | | Results for this | | SUPERFICIAL PERC AND | e | 3:52 PM | | procedure are in the | | NEEDLE PLCMT | | PST | | results section. | + +--------+ + + + | SURGICAL PATHOLOGY | Routin | 10/28/2015 | | Results for this | | | e | | | procedure are in the | | | | | | results section. | + +--------+ + + + documented in this encounter Results CT BIOPSY BONE SUPERFICIAL PERC AND NEEDLE PLCMT (10/28/2015 3:52 PM PST) + + + + + + | Component | Value | Ref Range | Performed | Pathologist | | | | | At | Signature | + + + + + + | CT BIOPSY | PROCEDURE: CT BIOPSY | | | | | BONE | BONE SUPERFICIAL PERC | | | | | SUPERFICIAL | COMBO 10/28/15 15:52:00 | | | | | PERC | STOVE INSTALLER(S): Dr. Enamorado, | | | | | W/NEEDLE | Dr. Mendoza HISTORY: Pelvic | | | | | PLCMT | bone lesions. Focused | | | | | | history and physical | | | | | | exam: Vital signs | | | | | | stable, heart rate | | | | | | regular,lungs clear to | | | | | | auscultation. No | | | | | | significant changes in | | | | | | relevant past or | | | | | | currentmedical | | | | | | conditions. Patient | | | | | | condition is appropriate | | | | | | for current | | | | | | procedure,will proceed | | | | | | with procedure. | | | | | | COMPARISON: 10/14/15 | | | | | | MEDICATIONS: 100 mcg | | | | | | Fentanyl IV. | | | | | | TECHNIQUE:After | | | | | | determination that there | | | | | | were no | | | | | | contraindications to the | | | | | | procedure,written | | | | | | informed consent was | | | | | | obtained from the | | | | | | patient. Patient | | | | | | identity andprocedure | | | | | | were confirmed with a | | | | | | standard "timeout." The | | | | | | patient was placed in | | | | | | the prone position on | | | | | | the CT table and | | | | | | preliminarynoncontrast | | | | | | scanning was performed | | | | | | through the left sacral | | | | | | ala. An appropriate | | | | | | entry point was selected | | | | | | and marked on the lower | | | | | | back. The skinwas | | | | | | prepped and draped in | | | | | | usual sterile fashion. | | | | | | The skin and deeper | | | | | | softtissues were | | | | | | anesthetized with 8 mL | | | | | | buffered 1% | | | | | | preservative-free | | | | | | lidocaine. Atiny skin | | | | | | incision was made. Under | | | | | | CT-guidance, a 12 gauge | | | | | | Bonopty biopsy needle | | | | | | was advanced to the | | | | | | mass.The left sacral ala | | | | | | was biopsied 5 separate | | | | | | times, yielding 3 | | | | | | specimens whichwere | | | | | | submitted in sterile | | | | | | saline for further | | | | | | analysis. The needle | | | | | | was removedand the area | | | | | | cleansed and dressed in | | | | | | usual fashion. No | | | | | | complications were | | | | | | encountered. Analgesia | | | | | | and cardiopulmonary | | | | | | monitoringwas provided | | | | | | by radiology nursing | | | | | | personnel. FINDINGS: | | | | | | Preprocedural imaging | | | | | | demonstrated sclerotic | | | | | | lesions in the left | | | | | | sacral ala andright | | | | | | ilium. Intraprocedural | | | | | | images demonstrated | | | | | | successful needle | | | | | | localizationin the left | | | | | | sacrum. IMPRESSION: | | | | | | Technically successful | | | | | | CT-guided core biopsy of | | | | | | the left sacral ala. | | | | | | By my electronic | | | | | | signature listed below, | | | | | | I, the attending | | | | | | radiologist, waspresent | | | | | | for the entire | | | | | | procedure. Attending | | | | | | Radiologists: KELLI ENAMORADO, | | | | | | MDAuthor: HAYDE MENDOZA MD | | | | | | I personally reviewed | | | | | | the images and, if | | | | | | necessary, edited the | | | | | | report. I agreewith the | | | | | | report as now presented. | | | | | | | | | | | | Final/Electronically | | | | | | signed / KELLI ENAMORADO | | | | | | 10/28/2015 16:28 PM | | | | | | Pending final approval | | | | | | / HAYDE MENDOZA | | | | | | 10/28/2015 16:10 PM | | | | | | Preliminary / HAYDE | Carmen | | | | KELLY 10/28/2015 16:04 PM | | | | | | | | | | + + + + + + + + | Specimen | + + | | + + + +---------+ + + | Performing | Address | City/State/Zipcode | Phone Number | | Organization | | | | + +---------+ + + | [facility] DEPARTMENT OF | | | | | RADIOLOGY | | | | + +---------+ + + SURGICAL PATHOLOGY (10/28/2015) + + + + + + | Component | Value | Ref Range | Performed | Pathologist | | | | | At | Signature | + + + + + + | SURGICAL | THIS IS AN AMENDED | | [facility] | | | PATHOLOGY | REPORT SOURCE OF | | DEPARTMENT | | | | SPECIMEN:A Lesions in | | OF | | | | left sacrum Final | | PATHOLOGY | | | | Pathologic | | | | | | Diagnosis:Amendment: | | | | | | The purpose of this | | | | | | amendment is to include | | | | | | the IHC | | | | | | disclaimer.Please see | | | | | | end of report. The | | | | | | final diagnosis is | | | | | | unchanged. Sacrum, | | | | | | left, biopsy: - | | | | | | Reactive bone, | | | | | | consistent with fracture | | | | | | - Negative for | | | | | | acute osteomyelitis | | | | | | - Negative for | | | | | | lymphoma by flow | | | | | | cytometry - | | | | | | Negative for carcinoma | | | | | | by pancytokeratin | | | | | | immunostain Case | | | | | | seen by:Rene Heard, | | | | | | M.D./Surgical Pathology | | | | | | ResidentOctavio Mason | | | | | | Jonh Stratton, | | | | | | Ph.D./PathologistImmunol | | | | | | ogic Analysis by:Paloma | | | | | | Franklyn, | | | | | | M.D./Hematopathology | | | | | | FellowTaj Leyva, | | | | | | M.D., | | | | | | Ph.D./Hematopathologist | | | | | | Amendment seen | | | | | | by:Taj Leyva, | | | | | | M.D./HematopathologistT: | | | | | | 12/22/15:sg | | | | | | Immunologic Analysis: A | | | | | | limited panel of | | | | | | analysis was performed | | | | | | due to lowcellularity. | | | | | | Lymphocytes comprise 35% | | | | | | of CD45+ events and are | | | | | | composedpredominately | | | | | | of CD5+ T cells with | | | | | | fewer numbers of B | | | | | | cells; NK cells arenot | | | | | | interrogated. B cells | | | | | | comprise 9% of | | | | | | lymphocytes and are | | | | | | polytypic bysurface | | | | | | light chain expression. | | | | | | There is no CD34+ blast | | | | | | population. Pleasesee | | | | | | below for antibodies | | | | | | tested. Antibodies | | | | | | Tested: CD5 | | | | | | CD10 CD19 CD20 CD34 | | | | | | CD45 sKappa sLambda | | | | | | Clinical | | | | | | History:The patient is a | | | | | | 75-year-old female with | | | | | | lesions in left sacrum. | | | | | | Gross | | | | | | Description:Received is | | | | | | 1 specimen fresh in a | | | | | | container labeled with | | | | | | the patient | | | | | | name(initials SD) and | | | | | | "left sacral core | | | | | | biopsy." Received are | | | | | | 2 needle corebiopsies of | | | | | | bone measuring 2 x 0.2 | | | | | | cm in aggregate. Bony | | | | | | specimens aresubmitted | | | | | | for permanent section. | | | | | | The remainder of the | | | | | | fluid that wasreceived | | | | | | is submitted for Flow | | | | | | Cytometry. | | | | | | Cassette Index:[id number] | | | | | | (Analyte specific | | | | | | reagents are used in | | | | | | many laboratory tests | | | | | | necessary forstandard | | | | | | medical care. This | | | | | | test was developed and | | | | | | its | | | | | | performancecharacteristi | | | | | | cs determined by [facility] | | | | | | laboratories. It has | | | | | | not been clearedor | | | | | | approved by the US Food | | | | | | and Drug Administration | | | | | | (FDA). FDA does | | | | | | notrequire this test to | | | | | | go through premarket FDA | | | | | | review. This test is | | | | | | used forclinical | | | | | | purposes. It should | | | | | | not be regarded as | | | | | | investigational or | | | | | | forresearch. This | | | | | | laboratory is certified | | | | | | under the Clinical | | | | | | LaboratoryImprovement | | | | | | Amendments (CLIA) as | | | | | | qualified to perform | | | | | | high complexityclinical | | | | | | laboratory testing.) | | | | | | (Immunohistochemical | | | | | | analysis (IHC) allows | | | | | | assessment | | | | | | ofimmunoarchitecture, | | | | | | which is not supplied by | | | | | | flow cytometry, whereas | | | | | | flowcytometry enables | | | | | | better assessment of | | | | | | clonality and antigen | | | | | | aberrancy thanIHC.) | | | | | | My electronic | | | | | | signature indicates that | | | | | | I have personally | | | | | | reviewed alldiagnostic | | | | | | slides, the gross and/or | | | | | | microscopic portion of | | | | | | thisreport and | | | | | | formulated the final | | | | | | diagnosis. | | | | | | Rendering Diagnostician: | | | | | | Octavio Stratton M.D., | | | | | | Ph.DPathologistElectroni | | | | | | tylor Signed 11/02/2015 | | | | | | 5:35PMRendering | | | | | | Diagnostician: Taj | | | | | | Autumn | | | | | | JonhPathologistElectroni | | | | | | tylor Signed 12/29/2015 | | | | | | 10:30AM | | | | + + + + + + + + | Specimen | + + | Bone - Sacrum | + + + + + | Narrative | Performed At | + + + | | | + + + + + + + + | Performing | Address | City/State/Zipcode | Phone Number | | Organization | | | | + + + + + | [facility] | [address] | [place] [address] | | | PATHOLOGY | [address] | | | + + + + + documented in this encounter Visit Diagnoses Not on filedocumented in this encounter
--- OUTSIDE RECORDS SUMMARY | ~2020-05-06 | XMS | Encounter Summary ---
Demographics + + + | Address | [address] | | | [place] [address] | + + + | Home Phone | | + + + | Preferred Language | Unknown | + + + | Marital Status | | + + + | Anglican Affiliation | NRP | + + + | Race | White | + + + | Ethnic Group | Not or | + + + Author + + + | Author | [facility] | + + + | Organization | [facility] | + + + | Address | Unknown | + + + | Phone | Unavailable | + + + Support + + + + + | Name | Relationship | Address | Phone | + + + + + | Andrzej Campos | ECON | [address] [facility] | | | | | [place] | | | | | [address] | | + + + + + Care Team Providers + +------+ + | Care Public Stenographer Name | Role | Phone | + +------+ + | Carlo Soto MD | PCP | | + +------+ + Reason for Visit + + + | Reason | Comments | + + + | Follow-up visit | | + + + | Macular degeneration | | + + + Benefits [...] | | | | | | | [place], [place] | | | | | | | [address] | | | | | | | Phone: | | | | | | | [phone] | | | | | | | Fax: | | | | | | | [phone] | +--------+--------+ + + + + Encounter Details +--------+---------+ + + + | Date | Type | Department | Care Team | Description | +--------+---------+ + + + | 05/01/ | Office | [facility] | Jeferson Villarreal MD | Nonexudative | | 2019 | Visit | [facility] | [address] | age-related macular | | | | [place] [address] | [address] | degeneration, | | | | [facility] | [place], [place] | bilateral, | | | | [facility] [place], | [address] | intermediate dry | | | | [place] [address] | [phone] | stage; Exudative | | | | [phone] | | age-related macular | | | | | | degeneration of both | | | | | | eyes with active | | | | |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 | | | | | | neovascularization | | | | | | ([facility]) | +--------+---------+ + + + Social History [...] Instructions Patient Instructions Jeferson Villarreal MD - 05/01/2019 10:45 AM PDTReturn before scheduled vi sit with decreasing vision, distortion, or new shower of floaters. documented in this encounter Progress Notes Jeferson Villarreal MD - 05/01/2019 10:45 AM PDT [facility] Progress Note 05/01/2019 Assessment & Plan: 78 y.o. 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 Increase IRF OS today Wet/GA OD with resolved SRF PARQ Avastin OS Call for decreased vision, increased distortion, increased pain, new floaters or flashing l ights Follow up: Return in about 4 weeks (around 05/29/2019). Chief Complaint: Follow-up visit Macular degeneration HPI: Patient mentioned she notices no new vision changes, flashes, floaters, or eye pains. cular Meds: Combigan BID OU No occupation listed. 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, [...] [address]vd | | | | | | [place], [place] | | | | | | [address] | | | | | | [phone] | | | | | | | | +--------+---------+ + + + | 07/29/ | Office | Ophthalmology | Jeferson Villarreal MD | | | 2020 | Visit | | [address] | | | | | [address] | | | | | | [place], [place] | | | | | | [address] | | | | | | [phone] | | | | | | | | +--------+---------+ + + + documented as of this encounter Procedures + +--------+ + + + | Procedure Name | Priori | Date/Time | Associated Diagnosis | Comments | | | ty | | | | + +--------+ + + + | AVASTIN INJ - OS - | Routin | 05/01/2019 | Exudative | Results for this | [...] + | OCT, RETINA | Routin | 05/01/2019 | Nonexudative | Results for this | [...] AVASTIN INJECTION - OS - LEFT EYE (05/01/2019 12:27 PM PDT) + + + | Narrative | Performed At | + + + | Pre-Procedure | | | Procedures, alternatives and risks discussed with patient. Questions | | | answered., confirmed correct patient, procedure, site and consent. | | | | | | | | | Anesthesia | | | Anesthesia: topical, subconjunctival | | | Anesthetic Medication: Proparacaine 0.5%, Lidocaine 1% | | | | | | | | | Procedure | | | Preparation: betadine to ocular surface, eyelid speculum | | | | | | Needle: 30g | | | | | | | | | Injection: 1.25 mg bevacizumab 1.25 mg/0.05 mL | | | [facility]: [id number] | | | Lot: [id number] | | | Expiration Date: 05/14/2019 | | | Route: intravitreal | | | Site: Left Eye | | | | | | Estimated blood loss: none | | | | | | | | | Post Op | | | Post procedure assessment: visual acuity at least count fingers, eye | | | rinsed, patient tolerated procedure well | | + + + OCT, RETINA (05/01/2019 11:49 AM PDT) + + + | Narrative | Performed At | + + + | Landscape Laborer | [facility] | | [facility] | [address] | [place] [address] | | | [place] | Kristy. | [...] + | bevacizumab (AVASTIN) | Given | 05/01/20 | 1.25 mg | | Left Eye | | intravitreal injection 1.25 mg | | 19 12:27 | | | | | 1.25 mg, ONCE PRN (IPROC), 1 | | PM PDT | | | | | dose, Starting Mon05/01/19 at | | | | | | | 1227, Until Mon05/01/19 at 1227 | | | | | | + +--------+ +---------+------+ + +---+---+ | | | +---+---+ documented in this encounter"
--- OUTSIDE RECORDS SUMMARY | ~2020-05-06 | XMS | Encounter Summary ---
Demographics + + + | Address | [address] | | | [place] [address] | + + + | Home Phone | | + + + | Preferred Language | Unknown | + + + | Marital Status | | + + + | Baptism Affiliation | NRP | + + + | Race | White | + + + | Ethnic Group | Not or | + + + Author + + + | Author | [facility] | + + + | Organization | [facility] | + + + | Address | Unknown | + + + | Phone | Unavailable | + + + Support + + + + + | Name | Relationship | Address | Phone | + + + + + | Andrzej Campos | ECON | [address] [facility] | | | | | [place] | | | | | [address] | | + + + + + Care Team Providers + +------+ + | Care Powder Blender And Pourer Name | Role | Phone | + +------+ + | Carlo Soto MD | PCP | | + +------+ + Encounter Details +--------+--------+ + + + | Date | Type | Department | Care Team | Description | +--------+--------+ + + + | 07/05/ | Intake | Transfer Center | | N/A | | 2019 | | [address] | | | | | | [place], | | | | | | [place] [address] | | | +--------+--------+ + + + [...] [address] | | | | | | [place], [place] | | | | | | [address] | | | | | | [phone] | | | | | | | | +--------+---------+ + + + | 07/29/ | Office | Ophthalmology | Jeferson Villarreal MD | | | 2019 | Visit | | [address] | | | | | [address] | | | | | | [place], [place] | | | | | | [address] | | | | | | [phone] | | | | | | | | +--------+---------+ + + + documented as of this encounter Visit Diagnoses Not on filedocumented in this encounter"
--- OUTSIDE RECORDS SUMMARY | ~2020-05-06 | XMS | Encounter Summary ---
Demographics + + + | Address | [address] | | | [place] [address] | + + + | Home Phone | | + + + | Preferred Language | Unknown | + + + | Marital Status | | + + + | Rastafari Affiliation | NRP | + + + [...] | Andrzej Campos | ECON | [address] [facility] | | | | | [place] | | | | | [address] | | + + + + + Care Team Providers + +------+ + | Care Ux Research Associate Name | Role | Phone | + [...] | | 2020 | Visit | | [address] | | | | | | [address] | | | | | | [place], [place] | | | | | | [address] | | | | | | [phone] | | | | | | | | +--------+---------+ + + + | 07/29/ | Office | Ophthalmology | Jeferson Villarreal MD | | | 2020 | Visit | | [address] | | | | | [address] | | | | | | [place], [place] | | | | | | [address] | | | | | | [phone] | | | | | | | | +--------+---------+ + + + documented as of this encounter Visit Diagnoses Not on filedocumented in this encounter"
--- OUTSIDE RECORDS SUMMARY | ~2020-05-06 | XMS | Encounter Summary ---
Demographics + + + | Address | [address] | | | [place] [address] | + + + | Home Phone | | + + + | Preferred Language | Unknown | + + + | Marital Status | | + + + | Mormonism Affiliation | NRP | + + + | Race | White | + + + | Ethnic Group | Not or | + + + Author + + + | Author | [facility] | + + + | Organization | [facility] | + + + | Address | Unknown | + + + | Phone | Unavailable | + + + Support + + + + + | Name | Relationship | Address | Phone | + + + + + | Andrzej Campos | ECON | [address] | | | | | [place] | | | | | [address] | | + + + + + Care Team Providers + +------+ + | Care Equine Internship Name | Role | Phone | + [...] | | | | | | | [place], [place] | | | | | | | [address] | | | | | | | Phone: | | | | | | | [phone] | | | | | | | Fax: | | | | | | | [phone] | +--------+--------+ + + + + Encounter Details +--------+---------+ + + + | Date | Type | Department | Care Team | Description | +--------+---------+ + + + | 07/31/ | Office | [facility] | Jeferson Villarreal MD | Nonexudative | | 2019 | Visit | [place] [facility] | [address] | age-related macular | | | | [place] [address] | [address] | degeneration, | | | | [facility] | [place], [place] | bilateral, | | | | Clinic [place], | [address] | intermediate dry | | | | [place] [address] | [phone] | stage; Exudative | | | | [phone] | | age-related macular | | | [...] Instructions Patient Instructions Jeferson Villarreal MD - 07/31/2019 3:30 PM PDTReturn before scheduled vi sit with decreasing vision, distortion, or new shower of floaters. documented in this encounter Progress Notes Jeferson Villarreal MD - 07/31/2019 3:30 PM PDT [facility] Progress Note 07/31/2019 Assessment & Plan: 78 y.o. 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 Continued to have no fluid with Eylea, working better than Avas tin Wet/GA OD with resolved SRF, no recurrence PARQ Eylea OS Observe OD Call for decreased vision, increased distortion, increased pain, new floaters or flashing l ights Follow up: Return in about 7 weeks (around 09/18/2019). Chief Complaint: Follow-up visit AMD - Age-related macular degeneration HPI: Patient states that her vision is stable. No new floaters, distortions, or flashes of light. She is still wondering what the 'vertical line is next to my cornea is on my left eye.' Ocular Meds: Combigan BID, OU No occupation listed. Current Outpatient Medications [...] Hx Examination: See Ophthalmology Module Attestations: The attending [...] Blvd | | | | | | [facility], [place] | | | | | | [address] | | | | | | [phone] | | | | | | | | +--------+---------+ + + + | 07/29/ | Office | Ophthalmology | Jeferson Villarreal MD | | | 2019 | Visit | | [address] | | | | | [address] | | | | | | [facility], [place] | | | | | | [address] | | | | | | [phone] | | | | | | | | +--------+---------+ + + + documented as of this encounter Procedures + +--------+ + + + | Procedure Name | Priori | Date/Time | Associated Diagnosis | Comments | | | ty | | | | + +--------+ + + + | EYLEA INJ - OS - | Routin | 08/01/2019 | Exudative | Results for this | | LEFT EYE | e | 1:52 PM | age-related macular | procedure are in the | | | | PDT | degeneration of both | results section. | | | | | eyes with active | | | | |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 | | | | | | neovascularization | | | | | | (HCC) | | + +--------+ + + + | OCT, RETINA | Routin | 07/31/2019 | Nonexudative | Results for this | | | e | 4:49 PM | age-related macular | procedure are in the | | | | PDT | degeneration, | results section. | | | | | bilateral, | | | | | | intermediate dry | | | | | | stage | | + +--------+ + + + documented in this encounter Results EYLEA INJECTION - OS - LEFT EYE (08/01/2019 1:52 PM PDT) + + + | Narrative [...] | | | | | | Injection: 2 mg aflibercept 2 mg/0.05 mL | | | [facility]: [id number] | | | Lot: [id number] | | | Expiration Date: 06/05/2019 | | | Route: intravitreal | | [...] | | + + + OCT, RETINA (07/31/2019 4:49 PM PDT) + + + | Narrative | Performed At | + + + | Split And Drum Room Supervisor | [facility] | | [facility] [...] [facility] | [address] | [place] [address] | | | [place] | [place]. | [...] + | aflibercept intravitreal | Given | 08/01/20 | 2 mg | | Left Eye | | injection 2 mg 2 mg, | | 19 1:52 | | | | | intravitreal, ONCE PRN (IPROC), 1 | | PM PDT | | | | | dose, Starting Mon08/01/19 at | | | | | | | 1352, Until Mon08/01/19 at 1352 | | | | | | + +--------+ +------+------+ + +---+---+ | | | +---+---+ documented in this encounter"
--- OUTSIDE RECORDS SUMMARY | ~2020-05-06 | XMS | Encounter Summary ---
Demographics + + + | Address | [address] | | | [place] [address] | + + + | Home Phone | | + + + | Preferred Language | Unknown | + + + | Marital Status | | + + + | Catholic Affiliation | NRP | + + + [...] [place] | | | | | [address] | | + + + + + Care Team Providers + +------+ + | Care Energy Professional Name | Role | Phone | + +------+ + | Carlo Soto MD | PCP | | + +------+ + Encounter Details +--------+--------+ + + + | Date | Type | Department | Care Team | Description | +--------+--------+ + + + | 04/01/ | Travel | | | | | 2020 | | | | | +--------+--------+ + [...] recent travel history available. | + + + + + + | COVID-19 Exposure | Response | Date Recorded | + + + + | In the last month, have you been in contact | No / Unsure | 04/01/2020 10:53 AM | | with someone who was confirmed or | | PDT | | suspected to have Coronavirus / COVID-19? | | | + + + + documented as of this [...] [place] | | | | | | [address] | | | | | | [phone] | | | | | | | | +--------+---------+ + + + | 07/29/ | Office | Ophthalmology | Jeferson Villarreal MD | | | 2020 | Visit | | [address] | | | | | [address] | | | | | | [place], [place] | | | | | | [address] | | | | | | [phone] | | | | | | | | +--------+---------+ + + + documented as of this encounter Visit Diagnoses Not on filedocumented in this encounter"
--- OUTSIDE RECORDS SUMMARY | ~2020-05-06 | XMS | Encounter Summary ---
Demographics + + + | Address | [address] | | | [place] [address] | + + + | Home Phone [...] + + + | Author | [facility] | + + + | Organization | [facility] | + + + | Address | Unknown | + + + | Phone | Unavailable | + + + Support + + + + + | Name | Relationship | Address | Phone | + + + + + | Andrzej Campos | ECON | [address] | | | | | [place] | | | | | [address] | | + + + + + Care Team Providers + +------+ + | Care Manager Fitness Name | Role | Phone | + [...] | | | | | | | [address] | | | | | | | [address] | [address] | | | | | | | [place], [place] | | | | | | | [address] | | | | | | | Phone: | | | | | | | [phone] | | | | | | | Fax: | | | | | | | [phone] | +--------+--------+ + + + + Encounter Details +--------+---------+ + + + | Date | Type | Department | Care Team | Description | +--------+---------+ + + + | 08/29/ | Office | [facility] | Horace Tan MD | Exudative | | 2018 | Visit | [place] [facility] | [address] | age-related macular | | | | [facility] [address] | [address] | degeneration of both | | | | [facility] | [place], [place] | eyes with active | | | | Clinic [place], | [address]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 | | | | [place] [address] | [phone] | neovascularization | | | | [phone] | | ([facility]) | +--------+---------+ + + + [...] Instructions Patient Instructions Horace Tan MD - 08/29/2018 11:00 AM PDTReturn before scheduled vi sit with decreasing vision or new shower of floaters. documented in this encounter Progress Notes Horace Tan MD - 08/29/2018 11:00 AM PDT [facility] Progress Note 08/29/2018 Assessment & Plan: 77 y.o. 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 Chief Complaint: Follow-up visit HPI: Vision slightly better OS. Denies flashes of light, floaters, or new distortion OU. BS: good- doesn't measure Last A1c: 5.9 Current Outpatient Prescriptions (Ophthalmic Medications) Medication Sig [...] Hx Examination: See Ophthalmology Module Attestations: The polysomnography technician, 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, [...] [address] | | | | | | [place], [place] | | | | | | [address] | | | | | | [phone] | | | | | | | | +--------+---------+ + + + | 07/29/ | Office | Ophthalmology | Horace Tan MD | | | 2020 | Visit | | [address] | | | | | | [address] | | | | | | [place], [place] | | | | | | [address] | | | | | | [phone] | | | | | | | | +--------+---------+ + + + documented as of this encounter Procedures + +--------+ + + + | Procedure Name | Priori | Date/Time | Associated Diagnosis | Comments | | | ty | | | | + +--------+ + + + | AVASTIN INJ - OD - | Routin | 08/29/2018 | Exudative | Results for this | | RIGHT EYE | e | 1:18 PM | age-related macular | procedure are in the | | | | PDT | degeneration of both | results section. | | | | | eyes with active | | | | |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 | | | | | | neovascularization | | | | | | ([facility]) | | + +--------+ + + + | AVASTIN INJ - OS - | Routin | 08/29/2018 | Exudative | Results for this | | LEFT EYE | e | 1:18 PM | age-related macular | procedure are in the | | | | PDT | degeneration of both | results section. | | | | | eyes with active | | | | |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 | | | | | | neovascularization | | | | | | (HCC) | | + +--------+ + + + | OCT, RETINA | Routin | 08/29/2018 | Exudative | Results for this | | | e | 12:07 PM | age-related macular | procedure are [...] AVASTIN INJECTION - OD - RIGHT EYE (08/29/2018 1:18 PM PDT) + + + | Narrative [...] mL | | | [facility]: [id number] | | | Lot: [id number] | | | Expiration Date: 10/08/2018 | | | Route: intravitreal | | [...] AVASTIN INJECTION - OS - LEFT EYE (08/29/2018 1:18 PM PDT) + + + | Narrative [...] mL | | | [facility]: [id number] | | | Lot: [id number] | | | Expiration Date: 10/08/2018 | | | Route: intravitreal | | [...] | | + + + OCT, RETINA (08/29/2018 12:07 PM PDT) + + + | Narrative | Performed At | + + + | Bicycle Designer | [facility] | | [facility] [...] | + + + + + | [facility] | [address] | [place] [address] | | | INSTITUTE | [place]y. | [...] + | bevacizumab (AVASTIN) | Given | 08/29/20 | 1.25 mg | | Left Eye | | intravitreal injection 1.25 mg | | 18 1:18 | | | | | 1.25 mg, ONCE PRN (IPROC), 1 | | PM PDT | | | | | dose, Starting Mon08/29/18 at | | | | | | | 1318, Until Mon08/29/18 at 1318 | | | | | | + +--------+ +---------+------+ + +---+---+ | | | +---+---+ + +-------+ +---------+---+--------+ | bevacizumab (AVASTIN) | Given | 08/29/20 | 1.25 mg | | Right | | intravitreal injection 1.25 mg | | 18 1:18 | | | Eye | | 1.25 mg, ONCE PRN (IPROC), 1 | | PM PDT | | | | | dose, Starting Mon08/29/18 at | | | | | | | 1318, Until Mon08/29/18 at 1318 | | | | | | + +-------+ +---------+---+--------+ +---+---+ | | | +---+---+ documented in this encounter"
--- OUTSIDE RECORDS SUMMARY | ~2020-05-06 | XMS | Encounter Summary ---
Demographics + + + | Address | [address] | | | [place] [address] | + + + | Home Phone | | + + + | Preferred Language | Unknown | + + + | Marital Status | | + + + | Mandaeism Affiliation | NRP | + + + | Race | White | + + + | Ethnic Group | Not or | + + + Author + + + | Author | [facility] | + + + | Organization | [facility] | + + + | Address | Unknown | + + + | Phone | Unavailable | + + + Support + + + + + | Name | Relationship | Address | Phone | + + + + + | Andrzej Campos | ECON | [address] | | | | | [place] | | | | | [address] | | + + + + + Care Team Providers + +------+ + | Care Business Trainer Name | Role | Phone | + +------+ + | Carlo Soto MD | PCP | | + +------+ + Reason for Visit + + + | Reason | Comments | + + + | New patient | | | consultation | | + + + | Glaucoma | | + + + Encounter Details +--------+---------+ + + + | Date | Type | Department | Care Team | Description | +--------+---------+ + + + | 01/07/ | Office | [facility] | Gail Peralta, | Primary open angle | | 2016 | Visit | [facility] | ,PhD [address] | glaucoma of both | | | | at [facility] [address] | [address] [facility] [place] | eyes, moderate stage | | | | Ave Mailcode: [id number] | [address] | (Primary Dx); OHT | | | | [facility] | [phone] | (ocular | | | | and Healing, | | hypertension), | | | | Building | | bilateral; Cataract, | | | | Floor [facility] [place] | | nuclear sclerotic, | | | | [address] | | both eyes | | | | [phone] | | | +--------+---------+ + + + [...] documented as of this encounter Progress Notes Gail Peralta MD,PhD - 01/08/2016 3:01 PM PSTFormatting of this note might be differen t from the original. Assessment Glaucoma Clinic Note: 01/08/2016 Glaucoma Diagnosis: Referred by: Doretha Bartlett POAG OU HPI: Tonya Suresh is a 75 y.o. female Referred for glaucoma evaluation. Started on Lumigan about a year and a half ago, later nickie nged to Combigan after retinal specialist said it was causing inflammation. Drops helped ini tially, but IOPs creeping back up - were 22 OU at last visit. Vision worsening OD - but hx of macular problems (vitelliform macular dystrophy) - seeing a retinal specialist in the [facility]. States that it is stable for the past couple years. Vision OS stable. Eye medications: Combigan 2x/day OU - 8:00am ATs prn OU Current Medication List Name Sig BRIMONIDINE 0.2 % EYE DROPS Instill 1 drop into both eyes two times daily. BRIMONIDINE-TIMOLOL 0.2 %-0.5 % EYE DROPS Instill 1 drop into both eyes two times daily. DICLOFENAC POTASSIUM 50 MG TABLET Take 50 mg by mouth two times daily. DIPHENHYDRAMINE 25 MG CAPSULE Take 25 mg by mouth as needed. DORZOLAMIDE 22.3 MG-TIMOLOL 6.8 MG/ML EYE DROPS Instill 1 drop into both eyes two times gale ly. DOXYLAMINE SUCCINATE ORAL Take by mouth as needed. FLUTICASONE 110 MCG/ACTUATION HFA AEROSOL INHALER Inhale 1 puff by mouth as needed. LEVOTHYROXINE 75 MCG TABLET METFORMIN 500 MG TABLET Take by mouth. MULTIVITAMIN ORAL Take by mouth. OMEPRAZOLE 20 MG CAPSULE,DELAYED RELEASE Take by mouth. Glaucoma summary: Referred in 2016 at age 75 for OHT and POAG on near MMT Other ocular diagnoses: Macular pigmentary changes-- does not have Ocular procedures: OD OS None None OD OS Max IOP 29 29 Pachymetry 517 520 Target IOP 15 15 Diurnal none none Glaucoma medications to avoid: Lumigan - retinal inflammation Family history of glaucoma? No History of eye trauma? No Diabetes? Yes- since 2013 - on metformin, BS better recently Asthma/COPD? No Hypotension/Shock history? No Migraines/Raynauds? No Steroid use? No Kidney stones? No Driving? Yes, day and night Flomax use? Never Anticoagulation? 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 12 review of systems (in cluding constitutional symptoms, ENT, cardiovascular, respiratory, gastrointestinal, genitou rinary, integumetary, neurologic, psychiatric, endocrine, hematologic, and immunologic) nega tive, except for eye symptoms, DM, hypothyroid, osteoporosis/osteoarthritis Past Medical History Diagnosis Date Diabetes (HCC) Hypothyroid Osteoporosis Osteoarthritis Past Surgical History Procedure Laterality Date Caesarean section x3 Excision of gall bladder Allergies: Miacalcin; Red dye; and Cephalexin Pt reports that she has never smoked. She has never used smokeless tobacco. She reports th at she drinks about 4.2 oz of alcohol per week. She reports that she does not use illicit dr elsa. Examination Mental status: Alert and oriented x 3 VAsc VAph sc VAcc VAph cc WRx OD 20/125 20/70 -2 -3.25 +4.00 at 018 OS 20/50 NI -2.50 +3.00 at 162 Add +2.50 I, SHERIE DOE, performed, reviewed or revised the above history, medications, allergies , as well as performed the following elements noted in the Base Ophthalmology Exam: visual a cuity, pupils, EOMs, CVF, pachymetry. Motility: Ortho in primary gaze, full OU Slit lamp Exam IOP: OD 21, OS 21 by Applanation at 3:40 PM. Right Left Gonioscopy (01/08/2016) C35f 2+ptm C35f 2+ptm Lids / Lashes MGD, lid notching MGD, lid notching Conjunctiva / Sclera* White and quiet White and quiet Cornea area of limbal thinning and opacity at 9>3o/c, no KS area of limbal thinning and o pacity at 3>9o/c,no KS Anterior Chamber Deep and quiet Deep and quiet Iris Normal, no TIDs Normal, no TIDs Lens 1+ NS, no PXE 1+ NS, no PXE *Conjunctiva includes bulbar and palpebral, unless otherwise noted. Cornea includes epithelium, stroma and endothelium, unless otherwise noted. Fundus exam Dilated with tropicamide 1% and phenylephrine 2.5% OU at 3:41 PM Right Left Disc infeiror erosion, early superior thinning, no heme 0.75 inferior erosion, superior rim intact, no heme 0.7 Macula diffuse pigmentary changes, elevated vitelliform-like lesion Pigment mottling, eleva simi vitelliform-like lesion Vitreous PVD PVD Periphery Inferior lattice, attached inferior lattice, attached Optic nerve photos 01/08/2016 Good quality bilateral stereo disc photos taken today documenting nerves as described above , for documentation and future comparison. Visual Field Interpretation (Outside clinic 11/18/2015) Simth 24-2 visual field- ZAK fast OD: Reliable, small nasal depression in setting of false positives, MD -0.66, PSD 2.25, wit h fluctuation but overall stable since 2012 OS: Faire (12% FP), superior nasal step MD -1.24, PSD 4.34, stable since 2012 H40.11X2 Primary open angle glaucoma of both eyes, moderate stage H40.053 OHT (ocular hypertension), bilateral M89.9 Bone lesion H25.13 Cataract, nuclear sclerotic, both eyes Assessment and Plan 1. 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 IOP probably too high for ONH's at 21 on combigan OU. Relatively stable visual grady x 2 years. We have room to increase topical medications. If MMT not enough, would consider SLT . 2. 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 Not fo llowing anyone locally. Would like retina referral at [place]. 3. Early cataracts OU Discontinue Combigan due to cost Start timolol/dorzolamide combination BID OU Start brimonidine BID OU Refer to Retina colleagues for possible pattern/vitelliform dystrophy evaluation IOP check locally with Dr. Farley in 1 month (if IOP not a target of about 15, then consid er returning here for SLT) Heidi Melo MD PGY3 Ophthalmology Resident [facility] I personally interviewed the patient, performed the pertinent parts of the physical examina tion and personally formulated the plan with the resident. I agree with the residents docum entation and have documented any additions or exceptions. Gail Peralta MD, PhD Barrel Straightener of Ophthalmology Glaucoma Service [facility] [place] documented in th is encounter Plan of Treatment +--------+---------+ + + + | Date | Type | Specialty | Care Team | Description | +--------+---------+ + + + | 06/17/ | Office | Ophthalmology | Jeferson Villarreal MD | | | 2019 | Visit | | [address] | | | | | | [place], [place] | | | | | | [address] | | | | | | [phone] | | | | | | | | +--------+---------+ + + + | 07/29/ | Office | Ophthalmology | Jeferson Villarreal MD | | | 2019 | Visit | | [address] | | | | | | [address] | | | | | | [place], [place] | | | | | | [address] | | | | | | [phone] | | | | | | | | +--------+---------+ + + + + + +--------+ + + | Name | Type | Priori | Associated Diagnoses | Order Schedule | | | | ty | | | + + +--------+ + + | COLOR PHOTOGRAPHY | Procedures | Routin | OHT (ocular | Expected: | | | | e | hypertension), | 01/08/2016, Expires: | | | | | bilateral | 07/10/2017 | + + +--------+ + + documented as of this encounter Procedures + +--------+ + + + | Procedure Name | Priori | Date/Time | Associated Diagnosis | Comments | | | ty | | | | + +--------+ + + + | CO FUNDAL | Routin | 01/08/2016 | Primary open angle | | | PHOTOGRAPHY | e | 7:19 PM | glaucoma of both | | | | | PST | eyes, moderate stage | | | | | | OHT (ocular | | | | | | hypertension), | | | | | | bilateral Cataract, | | | | | | nuclear sclerotic, | | | | | | both eyes | | + +--------+ + + + | CO SPECIAL EYE | Routin | 01/08/2016 | Primary open angle | | | EVAL,GONISCOPY | e | 7:19 PM | glaucoma of both | | | | | PST | eyes, moderate stage | | | | | | OHT (ocular | | | | | | hypertension), | | | | | | bilateral Cataract, | | | | | | nuclear sclerotic, | | | | | | both eyes | | + +--------+ + + + documented in this encounter Visit Diagnoses + + | Diagnosis | + + | Primary open angle glaucoma of both eyes, moderate stage - Primary | + + | OHT (ocular hypertension), bilateral | + + | Cataract, nuclear sclerotic, both eyes Senile nuclear sclerosis | + + documented in this encounter"
--- OUTSIDE RECORDS SUMMARY | ~2020-05-06 | XMS | Encounter Summary ---
Demographics + + + | Address | [address] | | | [place] [address] | + + + | Home Phone | | + + + | Preferred Language | Unknown | + + + | Marital Status | | + + + | Caodaism Affiliation | NRP | + + + [...] [place] | | | | | [address] | | + + + + + Care Team Providers + +------+ + | Care Wind Commissioning Technician Name | Role | Phone | + [...] | | | | | | | [place], [place] | | | | | | | [address] | | | | | | | Phone: | | | | | | | [phone] | | | | | | | Fax: | | | | | | | [phone] | +--------+--------+ + + + + Encounter Details +--------+---------+ + + + | Date | Type | Department | Care Team | Description | +--------+---------+ + + + | 01/11/ | Office | [facility] | Horace Tan MD | Nonexudative | | 2017 | Visit | [place] [facility] | [address] | age-related macular | | | | [place] [address] | [address] | degeneration, | | | | [facility] | [place], [place] | bilateral, | | | | Clinic [place], | [address] | intermediate dry | | | | [place] [address] | [phone] | stage (Primary Dx) | | | | [phone] | | | +--------+---------+ + + + [...] encounter Progress Notes Horace Tan MD - 01/11/2017 1:15 PM PST [facility] Progress Note 01/11/2017 Assessment & Plan: 76 y.o. female Bilateral nonexudative age-related macular degeneration Stable appearance of basal laminar drusen with pseudo-vitelliform lesion OU. No sign of CNV Observe Call for decreased vision, increased distortion, increased pain, new floaters or flashing l ights Follow up: Return in about 3 months (around 04/13/2017). OCT CMT Description Right 377 (01/11/17 1300) Comments:: Drusen, pseudo-vitelliform material Fluid:: No fluid Left 422 (01/11/17 1300) Comments:: Drusen, psuedo-vitelliform material Fluid:: No fluid Chief Complaint: Follow-up visit AMD - Age-related macular degeneration Initial History: Pt feels vision has decreased since she has been here. Pt has been followi ng with soaker meat. Consistent with glaucoma drops. Physician HPI: Following up per recommendation with no new issues, including eye pain, decreased vision, i ncreased floaters or increased distortion Pain: No pain (0 of 0-10) Current Outpatient Prescriptions (Ophthalmic Medications) Medication Sig brimonidine Instill 1 drop into both eyes two times daily. CARBOXYMETHYLCELL/HYPROMELLOSE (GENTEAL GEL OPHT) Instill in eye as needed. dorzolamide HCl-timolol maleate Instill 1 drop into both eyes two times daily. PROPYLENE GLYCOL (SYSTANE BALANCE OPHT) Instill in eye as needed (BID to QID daily). Current Outpatient Prescriptions (Other) Medication Sig CHLORPHENIRAMINE [...] Cancer. Examination: See Ophthalmology Module Attestations: The c2 tactical analysis technician, 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, is responsible for performing the f ollowing sections: RFV, ROS, PMH, PSH, SocHx, FH, Med list, Base Ophth Exam. The attending physician is responsible for the entire content of the note and has personall y performed the HPI and the physical examination HORACE TAN MD Sarwat ented in this encounter Plan of Treatment [...] | | | | [facility], [place] | | | | | | [address] | | | | | | [phone] | | | | | | | | +--------+---------+ + + + | 07/29/ | Office | Ophthalmology | Horace Tan MD | | | 2019 | Visit | | [address] | | | | | [address] | | | | | | [facility], [place] | | | | | | [address] | | | | | | [phone] | | | | | | | | +--------+---------+ + + + documented as of this encounter Visit Diagnoses + + | Diagnosis | + + | Nonexudative age-related macular degeneration, bilateral, intermediate dry stage - | | Primary | + + documented in this encounter"
--- OUTSIDE RECORDS SUMMARY | ~2020-05-06 | XMS | Encounter Summary ---
Demographics + + + | Address | [address] | | | [place] [address] | + + + | Home Phone | | + + + | Preferred Language | Unknown | + + + | Marital Status | | + + + | Religion Affiliation | NRP | + + + [...] | Andrzej Campos | ECON | [address] [facility] | | | | | [place] | | | | | [address] | | + + + + + Care Team Providers + +------+ + | Care City Auditor Name | Role | Phone | + +------+ + | Carlo Soto MD | PCP | | + +------+ + Encounter Details +--------+--------+ + + + | Date | Type | Department | Care Team | Description | +--------+--------+ + + + | 01/01/ | Travel | | | | | [...] | | 2020 | Visit | | [address] | | | | | [address] | | | | | | [place], [place] | | | | | | [address] | | | | | | [phone] | | | | | | | | +--------+---------+ + + + | 07/29/ | Office | Ophthalmology | Jeferson Villarreal MD | | | 2020 | Visit | | [address] | | | | | [address] | | | | | | [place], [place] | | | | | | [address] | | | | | | [phone] | | | | | | | | +--------+---------+ + + + documented as of this encounter Visit Diagnoses Not on filedocumented in this encounter"
--- OUTSIDE RECORDS SUMMARY | ~2020-05-06 | XMS | Encounter Summary ---
Demographics + + + | Address | [address] | | | [place] [address] | + + + | Home Phone | | + + + | Preferred Language | Unknown | + + + | Marital Status | | + + + | Muslim Affiliation | NRP | + + + | Race | White | + + + | Ethnic Group | Not or | + + + Author + + + | Author | [facility] | + + + | Organization | [facility] | + + + | Address | Unknown | + + + | Phone | Unavailable | + + + Support + + + + + | Name | Relationship | Address | Phone | + + + + + | Andrzej Campos | ECON | [address] [facility] | | | | | [place] | | | | | [address] | | + + + + + Care Team Providers + +------+ + | Care Tube Backer Name | Role | Phone | + [...] | | | | | | | [place], [place] | | | | | | | [address] | | | | | | | Phone: | | | | | | | [phone] | | | | | | | Fax: | | | | | | | [phone] | +--------+--------+ + + + + Encounter Details +--------+---------+ + + + | Date | Type | Department | Care Team | Description | +--------+---------+ + + + | 09/18/ | Office | [facility] | Jeferson Villarreal MD | Nonexudative | | 2019 | Visit | [place] [facility] | [address] | age-related macular | | | | [place] [address] | [address] | degeneration, | | | | [facility] | [place], [place] | bilateral, | | | | Clinic [place], | [address] | intermediate dry | | | | [place] [address] | [phone] | stage; Exudative | | | | [phone] | | age-related macular | | | [...] Instructions Patient Instructions Jeferson Villarreal MD - 09/18/2019 1:15 PM PSTReturn before scheduled vi sit with decreasing vision, distortion, or new shower of floaters. documented in this encounter Progress Notes Jeferson Villarreal MD - 09/18/2019 1:15 PM PST [facility] Progress Note 09/18/2019 Assessment & Plan: 79 y.o. 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 Doing well Eylea T+E. Wet/GA OD with resolved SRF, no recurrence PARQ Eylea OS Observe OD Call for decreased vision, increased distortion, increased pain, new floaters or flashing l ights Follow up: Return in about 8 weeks (around 11/13/2019). Chief Complaint: Follow-up visit AMD - Age-related macular degeneration HPI: Patient states that her vision is stable. No new floaters, distortions, or flashes of light. Ocular Meds: Combigan BID, OU No occupation [...] [address] | | | | | | [facility] [place] | | | | | | [address] | | | | | | [phone] | | | | | | | | +--------+---------+ + + + | 07/29/ | Office | Ophthalmology | Jeferson Villarreal MD | | | 2020 | Visit | | [address] | | | | | | [address] | | | | | | [facility] [place] | | | | | | [address] | | | | | | [phone] | | | | | | | | +--------+---------+ + + + documented as of this encounter Procedures + +--------+ + + + | Procedure Name | Priori | Date/Time | Associated Diagnosis | Comments | | | ty | | | | + +--------+ + + + | EYLEA INJ - OS - | Routin | 09/18/2019 | Exudative | Results for this | | LEFT EYE | e | 2:28 PM | age-related macular | procedure are in the | | | | PST | degeneration of both | results section. | | | | | eyes with active | | | | |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 | | | | | | neovascularization | | | | | | (HCC) | | + +--------+ + + + | OCT, RETINA | Routin | 09/18/2019 | Nonexudative | Results for this | | | e | 1:33 PM | age-related macular | procedure are in the | | | | PST | degeneration, | results section. | | | | | bilateral, | | | | | | intermediate dry | | | | | | stage | | + +--------+ + + + documented in this encounter Results EYCINDYA INJECTION - OS - LEFT EYE (09/18/2019 2:28 PM PST) + + + | Narrative [...] aflibercept 2 mg/0.05 mL | | | [facility]: 72248-354-29, Lot: [id number], Expiration date: 08/05/2020 | | | Route: intravitreal, Site: Left Eye | | | | | | Estimated blood loss: none | | | | | | | | | Post Op | | | Post procedure assessment: visual acuity at least count fingers, eye | | | rinsed, patient tolerated procedure well | | + + + OCT, RETINA (09/18/2019 1:33 PM PST) + + + | Narrative | Performed At | + + + | Hydraulic Auto Jack Mechan[employer] | [facility] | | Documentation[facility] [...] + + | [facility] | [address] | [place] [address] | | | [place] | Kristy. | [...] + | aflibercept intravitreal | Given | 09/18/20 | 2 mg | | Left Eye | | injection 2 mg 2 mg, | | 19 2:28 | | | | | intravitreal, ONCE PRN (IPROC), 1 | | PM PST | | | | | dose, Starting Mon09/18/19 at | | | | | | | 1428, Until Mon09/18/19 at 1428 | | | | | | + +--------+ +------+------+ + +---+---+ | | | +---+---+ documented in this encounter"
--- OUTSIDE RECORDS SUMMARY | ~2020-05-06 | XMS | Encounter Summary ---
Demographics + + + | Address | [address] | | | [place] [address] | + + + | Home Phone | | + + + | Preferred Language | Unknown | + + + | Marital Status | | + + + | Jain Affiliation | NRP | + + + | Race | White | + + + | Ethnic Group | Not or | + + + Author + + + | Author | [facility] | + + + | Organization | [facility] | + + + | Address | Unknown | + + + | Phone | Unavailable | + + + Support + + + + + | Name | Relationship | Address | Phone | + + + + + | Andrzej Campos | ECON | [address] [facility] | | | | | [place] | | | | | [address] | | + + + + + Care Team Providers + +------+ + | Care Data Processing Control Clerk Name | Role | Phone | + [...] | | | | | | | [place], [place] | | | | | | | [address] | | | | | | | Phone: | | | | | | | [phone] | | | | | | | Fax: | | | | | | | [phone] | +--------+--------+ + + + + Encounter Details +--------+---------+ + + + | Date | Type | Department | Care Team | Description | +--------+---------+ + + + | 08/30/ | Office | [facility] | Horace Tan MD | Nonexudative | | 2017 | Visit | [place] [facility] | [address] | age-related macular | | | | [place] [address] | [address] | degeneration, | | | | [facility] | [place], [place] | bilateral, | | | | Clinic [place], | [address] | intermediate dry | | | | [place] [address] | [phone] | stage (Primary Dx) | | | | [phone] | | | +--------+---------+ + + + [...] encounter Progress Notes Horace Tan MD - 08/30/2017 10:00 AM PDT [facility] Progress Note 08/30/2017 Assessment & Plan: 76 y.o. female Nonexudative age-related macular degeneration, bilateral, intermediate dry stage Dry AMD c vitelliform OU Now with vitelliform gone, no increase GA OS Stable Observe F/u 3-4 months Call for decreased vision, increased distortion, increased pain, new floaters or flashing l ights Follow up: Return in about 4 months (around 12/31/2017). OCT CMT Description Right 263 (08/30/17 1000) Comments:: Drusen, no pseudo-vitelliform material, early a trophy Fluid:: No fluid Left 401 (08/30/17 1000) Comments:: Drusen, psuedo-vitelliform material Fluid:: No fluid Chief Complaint: Follow-up visit AMD - Age-related macular degeneration HPI: No vision changes. No new flashes of light or floaters. She does have ocular migraines . Last A1c: 5.9 Current Outpatient Prescriptions (Ophthalmic [...] file Examination: See Ophthalmology Module Attestations: The mathematical [...] [address]vd | | | | | | [place], [place] | | | | | | [address] | | | | | | [phone] | | | | | | | | +--------+---------+ + + + | 07/29/ | Office | Ophthalmology | Horace Tan MD | | | 2019 | Visit | | [address] | | | | | | [address] | | | | | | [place], [place] | | | | | | [address] | | | | | | [phone] | | | | | | | | +--------+---------+ + + + documented as of this encounter Visit Diagnoses + + | Diagnosis | + + | Nonexudative age-related macular degeneration, bilateral, intermediate dry stage - | | Primary | + + documented in this encounter"
--- OUTSIDE RECORDS SUMMARY | ~2020-05-06 | XMS | Encounter Summary ---
Demographics + + + | Address | [address] | | | [place] [address] | + + + | Home Phone [...] [place] | | | | | [address] | | + + + + + Care Team Providers + +------+ + | Care Claims Clerk Name | Role | Phone | [...] | 2014 | Encounter | Services at [facility] | | | | | | [address] | | | | | | [facility] | | | | | | [address] | | | | | | [place], [place] | | | | | | [address] | | | | | | [phone] | | | +--------+ + + + [...] [address] | | | | | | [facility], [place] | | | | | | [address] | | | | | | [phone] | | | | | | | | +--------+---------+ + + + | 07/29/ | Office | Ophthalmology | Jeferson Villarreal MD | | | 2019 | Visit | | [address] | | | | | | [address] | | | | | | [facility], [place] | | | | | | [address] | | | | | | [phone] | | | | | | | [...]
--- OUTSIDE RECORDS SUMMARY | ~2020-05-06 | XMS | Encounter Summary ---
Demographics + + + | Address | [address] | | | [place] [address] | + + + | Home Phone | | + + + | Preferred Language | Unknown | + + + | Marital Status | | + + + | Episcopalian Affiliation | NRP | + + + | Race | White | + + + | Ethnic Group | Not or | + + + Author + + + | Author | [facility] | + + + | Organization | [facility] | + + + | Address [...] [place] | | | | | [address] | | + + + + + Care Team Providers + +------+ + | Care Centerless Grinder Name | Role | Phone | + [...] | | | | | | | [address] | | | | | | | [address] | | | | [address] | | | | | | | [place], [place] | | | | | | | [address] | | | | | | | Phone: | | | | | | | [phone] | | | | | | | Fax: | | | | | | | [phone] | +--------+--------+ + + + + Encounter Details +--------+---------+ + + + | Date | Type | Department | Care Team | Description | +--------+---------+ + + + | 02/14/ | Office | [facility] | Horace Tan MD | Exudative | | 2018 | Visit | [place] [facility] | [address] | age-related macular | | | | [facility] [address] | [address] | degeneration of left | | | | [facility] | [place], [place] | 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[place], | [address]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 | | | | [place] [address] | [phone] | neovascularization | | | | [phone] | | (HCC) | +--------+---------+ + + [...] Instructions Patient Instructions Horace Tan MD - 02/14/2018 2:45 PM PDTReturn before scheduled vi sit with decreasing vision or new shower of floaters. documented in this encounter Progress Notes Horace Tan MD - 02/14/2018 2:45 PM PDT [facility] Progress Note 02/14/2018 Assessment & Plan: 77 y.o. female Exudative age-related macular degeneration of left eye with active choroidal neovasculariza tion (HCC) Hx vitelliform / basal laminar drusen Now converted to Wet AMD OS with hemorrhage Improvement in SRF s/p Avastin OS Stable appearance OD PARQ Avastin OS Call for decreased vision, increased distortion, increased pain, new floaters or flashing l ights Follow up: Return in about 6 weeks (around 03/28/2018). Chief Complaint: Follow-up visit HPI: Vision improved OS after last injection, until 1 week ago when distortion increased. N o new floaters or flashes of light. Current [...] file Examination: See Ophthalmology Module Attestations: The cnc technician, 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, [...] [address] | | | | | | [place], [place] | | | | | | [address] | | | | | | [phone] | | | | | | | | +--------+---------+ + + + | 07/29/ | Office | Ophthalmology | Horace Tan MD | | | 2019 | Visit | | [address] | | | | | | [address] | | | | | | [place], [place] | | | | | | [address] | | | | | | [phone] | | | | | | | | +--------+---------+ + + + documented as of this encounter Procedures + +--------+ + + + | Procedure Name | Priori | Date/Time | Associated Diagnosis | Comments | | | ty | | | | + +--------+ + + + | AVASTIN INJ - OS - | Routin | 02/14/2018 | Exudative | Results for this | | LEFT EYE | e | 3:20 PM | age-related macular | procedure are in the | | | | PDT | degeneration of left | results section. | | | | | eye with active | | | | |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 | | | | | | neovascularization | | | | | | (HCC) | | + +--------+ + + + | OCT, RETINA | Routin | 02/14/2018 | Exudative | Results for this | | | e | 3:11 PM | age-related macular | procedure are [...] AVASTIN INJECTION - OS - LEFT EYE (02/14/2018 3:20 PM PDT) + + + | Narrative [...] 1.25 mg/0.05 mL | | | [facility]: [id number] | | | Lot: [id number] | | | Expiration Date: 03/22/2018 | | | Route: intravitreal | | [...] | | + + + OCT, RETINA (02/14/2018 3:11 PM PDT) + + + | Narrative | Performed At | + + + | Provider | [facility] | | DocumentationRight EyeContour: no central [...] | + + + + + | [facility] | [address] | [place] [address] | | | [place] | Kristy. | [...] + | bevacizumab (AVASTIN) | Given | 02/15/20 | 1.25 mg | | Left Eye | | intravitreal injection 1.25 mg | | 18 3:20 | | | | | 1.25 mg, ONCE NEEDED, 1 dose, | | PM PDT | | | | | Starting Mon02/14/18 at 1520, | | | | | | | Until Mon02/14/18 at 1520 | | | | | | + +--------+ +---------+------+ + +---+---+ | | | +---+---+ documented in this encounter"
--- OUTSIDE RECORDS SUMMARY | ~2020-05-06 | XMS | Encounter Summary ---
Demographics + + + | Address | [address] | | | [place] [address] | + + + | Home Phone [...] [place] | | | | | [address] | | + + + + + Care Team Providers + +------+ + | Care Control Area Operator Name | Role | Phone | [...] | | | | | | | [place], [place] | | | | | | | [address] | | | | | | | Phone: | | | | | | | [phone] | | | | | | | Fax: | | | | | | | [phone] | +--------+--------+ + + + + Encounter Details +--------+---------+ + + + | Date | Type | Department | Care Team | Description | +--------+---------+ + + + | 01/10/ | Office | [facility] | Horace Tan MD | Nonexudative | | 2018 | Visit | [facility] | [address] | age-related macular | | | | [place] [address] | [address] | degeneration, | | | | [facility] | [place], [place] | bilateral, | | | | [facility] [place], | [address] | intermediate dry | | | | [place] [address] | [phone] | stage (Primary Dx); | | | | [phone] | | Exudative | | | | | | age-related macular | | | | | | degeneration of left | | | | | | eye with active | | | | |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 | | | | | | neovascularization | | | | | | ([facility]) | +--------+---------+ + + + Social History [...] time!) Fix your gaze on the black ekwok in the center of the grid. Use [...] Tan MD - 01/10/2018 10:15 AM PST [facility] Progress Note [...] file Examination: See Ophthalmology Module Attestations: The rv repair technician, 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, [...] [place] | | | | | | [facility], [place] | | | | | | [address] | | | | | | [phone] | | | | | | | | +--------+---------+ + + + | 07/29/ | Office | Ophthalmology | Horace Tan MD | | | 2019 | Visit | | [address] | | | | | | [place] [place] | | | | | | [facility], [place] | | | | | | [address] | | | | | | [phone] | | | | | | | [...] Performed At | + + + | Software Qa System Specialist | [facility] | | DocumentationRight EyeQuality: [...] | + + + + + | [facility] | [address] | [place] [address] | | | INSTITUTE | Kristy. | | | + + + + + OCT, RETINA (04/01/2020 11:32 AM PDT) + + + | Narrative | Performed At | + + + | Software Qa System Specialist | [facility] | | DocumentationRight EyeQuality: [...] + + | [facility] | [address] | [place] [address] | | | [place] | Kristy. | | | + + + + + OCT, RETINA (11/13/2019 12:16 PM PST) + + + | Narrative | Performed At | + + + | Software Qa System Specialist | [facility] | | DocumentationRight [...] | + + + + + | [facility] | [address] | [place] [address] | | | INSTITUTE | Kristy. | | | + + + + + OCT, RETINA (09/18/2019 1:33 PM PST) + + + | Narrative | Performed At | + + + | Software Qa System Specialist | [facility] | | DocumentationRight [...] + + | [facility] | [address] | [place] [address] | | | INSTITUTE | Kristy. | | | + + + + + OCT, RETINA (07/31/2019 4:49 PM PDT) + + + | Narrative | Performed At | + + + | Software Qa System Specialist | [facility] | | DocumentationRight [...] [facility] | [address] | [place] [address] | | | INSTITUTE | [address]vd[address] | | | + + + + + OCT, RETINA (05/29/2019 2:54 PM PDT) + + + | Narrative | Performed At | + + + | Software Qa System Specialist | [facility] | | DocumentationRight [...] | + + + + + | [facility] | [address] | [place] [address] | | | [place] | Kristy. | | | + + + + + OCT, RETINA (05/01/2019 11:49 AM PDT) + + + | Narrative | Performed At | + + + | Software Qa System Specialist | [facility] | | DocumentationRight [...] [facility] | [address] | [place] [address] | | | [place] | Kristy. | | | + + + + + HEATHER FLORES (03/13/2019 11:29 AM PDT) + + + | Narrative | Performed At | + + + | Software Qa System Specialist | [facility] | | DocumentationRight EyeCentral macular thickness: 238 [...] | + + + + + | [facility] | [address] | [place] [address] | | | INSTITUTE | Kristy. | | | + + + + + OCT, RETINA (01/30/2019 11:39 AM PDT) + + + | Narrative | Performed At | + + + | Software Qa System Specialist | [facility] | | DocumentationRight [...] [facility] | [address] | [place] [address] | | | [place] | Kristy. | | | + + + + + OCT, RETINA (11/14/2018 11:44 AM PST) + + + | Narrative | Performed At | + + + | Software Qa System Specialist | [facility] | | DocumentationRight [...] | + + + + + | [facility] | [address] | [place] [address] | | | INSTITUTE | Kristy. | | | + + + + + OCT, RETINA (09/26/2018 8:56 AM PST) + + + | Narrative | Performed At | + + + | Software Qa System Specialist | [facility] | | DocumentationRight EyeCentral macular thickness: [...] [facility] | [address] | [place] [address] | | | INSTITUTE | Kristy. | | | + + + + + OCT, RETINA (08/29/2018 12:07 PM PDT) + + + | Narrative | Performed At | + + + | Software Qa System Specialist | [facility] | | DocumentationRight [...] [facility] | [address] | [place] [address] | | | INSTITUTE | [address]vd[address] | | | + + + + + OCT, RETINA (08/01/2018 11:49 AM PDT) + + + | Narrative | Performed At | + + + | Software Qa System Specialist | [facility] | | DocumentationRight [...] + + | [facility] | [address] | [place] [address] | | | INSTITUTE | Kristy. | | | + + + + + OCT, RETINA (06/27/2018 11:58 AM PDT) + + + | Narrative | Performed At | + + + | Software Qa System Specialist | [facility] | | DocumentationRight [...] + + | [facility] | [address] | [place] [address] | | | INSTITUTE | Kristy. | | | + + + + + OCT, RETINA (05/02/2018 11:32 AM PDT) + + + | Narrative | Performed At | + + + | Software Qa System Specialist | [facility] | | DocumentationRight [...] [facility] | [address] | [place] [address] | | | [place] | Kristy. | | | + + + + + OCT, RETINA (03/28/2018 11:37 AM PDT) + + + | Narrative | Performed At | + + + | Software Qa System Specialist | [facility] | | DocumentationRight [...] [facility] | [address] | [place] [address] | | | INSTITUTE | Kristy. | | | + + + + + OCT, RETINA (03/28/2018 10:49 AM PDT) + + + | Narrative | Performed At | + + + | Software Qa System Specialist | [facility] | | DocumentationRight [...] [facility] | [address] | [place] [address] | | | INSTITUTE | Kristy. | | | + + + + + OCT, RETINA (02/14/2018 3:11 PM PDT) + + + | Narrative | Performed At | + + + | Provider | [facility] | | DocumentationRight EyeContour: no central [...] | + + + + + | [facility] | [address] | [place] [address] | | | INSTITUTE | Kristy. | [...] bevacizumab 1.25 mg/0.05 mL | | | [facility]: [id number] | | | Lot: [id number]) | | | Expiration Date: 02/20/2018 | [...] Performed At | + + + | Software Qa System Specialist | [facility] | | DocumentationRight [...] | + + + + + | [facility] | [address] | [place] [address] | | | INSTITUTE | Kristy. | [...]
--- OUTSIDE RECORDS SUMMARY | ~2020-05-06 | XMS | Encounter Summary ---
Demographics + + + | Address | [address] | | | [place] [address] | + + + | Home Phone | | + + + | Preferred Language | Unknown | + + + | Marital Status | | + + + | Christian Affiliation | Unknown | + + + | Race | Unknown | + + + | Ethnic Group | Unknown | + + + Author + + + | Author | [facility] | | | and Rejiana | + + + | Organization | [facility] | | | and [...] [place] | | | | | [address] | | + + + + + Care Team Providers + +------+ + | Care Non Morse Intercept Technician Name | Role | Phone | + +------+ + | Eliud Hammond MD | PCP | | + +------+ + Reason for Visit Evaluate & Treat (Routine) +--------+ + + [...] Medicine | PRABHJOT | Huy Grover | Center [address] | | | Required | | (obstructive | MD [address] | [place] | | | | | sleep | [place] | [place], | | | | | apnea) | [facility] | [place] [address] | | | | | Procedures | [place], [place] | Phone: | | | | | [place] [facility] | [address] | [phone] | | | | | 6/>YRS SLEEP | Phone: | Fax: | | | | | 4/> ADDL | [phone] | [phone] | | | | | VERONIKA ATTND | Fax: | | | | | | NPSG | [phone] | | +--------+ + + + + + Encounter Details +--------+ + + + + | Date | Type | Department | Care Team | Description | +--------+ + + + + | 06/24/ | Hospital | [facility] | Huy Brown | PRABHJOT (obstructive | | 2014 | Encounter | MED CTR SLEEP | MD [address] | sleep apnea) | | | | CENTER [address] [place] | [place] [facility] | (Primary Dx) | | | | [place] [address], [place] | [place] [address] | | | | | [address] | [phone] | | | | | [phone] | | | +--------+ + + + [...] at Time of Discharge + + + +---------+--------+ + | Medication | Sig | Dispensed | Refills | Start | End Date | | | | | | Date | | + + + +---------+--------+ + | ascorbic acid | Take 500 mg by mouth | | 0 | | | | (VITAMIN C) 500 mg | Daily. | | | | | | tablet | | | | | | + + + +---------+--------+ + | | 1 drop 2 times | | 0 | | | | brimonidine-timolol | daily. | | | | | | (COMBIGAN) 0.2-0.5% | | | | | | | ophthalmic solution | | | | | | + + + +---------+--------+ + | CHLORPHENIRAMINE | Take 2 mg by mouth | | 0 | | | | MALEATE PO | as needed. | | | | | + + + +---------+--------+ + | Cholecalciferol | Take 1,000 Units by | | 0 | | | | (VITAMIN D-3) [address] | mouth Daily. | | | | | | units CAPS | | | | | | + + + +---------+--------+ + | Cinnamon 500 MG | Take 1,000 mg by | | 0 | | | | TABS | mouth Daily. | | | | | + + + +---------+--------+ + | Cod Liver Oil (COD | Take 415 mg by mouth | | 0 | | | | LIVER PO) | Daily. | | | | | + + + +---------+--------+ + | CRANBERRY PO | Take 4,200 mg by | | 0 | | | | | mouth Daily. | | | | | + + + +---------+--------+ + | diphenhydrAMINE | Take 25 mg by mouth | | 0 | | | | (BENADRYL) 25 mg | every 6 hours as | | | | | | tablet | needed for Itching. | | | | | + + + +---------+--------+ + | doxylamine | Take 25 mg by mouth | | 0 | | | | (UNISOM) 25 mg | nightly as needed | | | | | | tablet | for Insomnia. | | | | | + + + +---------+--------+ + | fluticasone | Inhale 1 puff into | | 0 | | | | (FLOVENT HFA) 110 | the lungs 2 times | | | | | | mcg/puff inhaler | daily. | | | | | + + + +---------+--------+ + | Jerry, Zingiber | Take 550 mg by mouth | | 0 | | | | officinalis, (JERRY | Daily. | | | | | | ROOT) 550 MG CAPS | | | | | | + + + +---------+--------+ + | Glucosamine HCl | Take 2,000 mg by | | 0 | | | | (GLUCOSAMINE | mouth Daily. | | | | | | HYDROCHLORIDE) 1,000 | | | | | | | mg tablet | | | | | | + + + +---------+--------+ + | hypromellose | Place 1 drop into | | 0 | | | | (GENTEAL MILD) 0.2 % | both eyes nightly. | | | | | | ophthalmic solution | | | | | | + + + +---------+--------+ + | levothyroxine | Take 75 mcg by mouth | | 0 | | | | (SYNTHROID, | every morning | | | | | | LEVOTHROID) 75 MCG | (before breakfast). | | | | | | tablet | | | | | | + + + +---------+--------+ + | metFORMIN | Take 500 mg by mouth | | 0 | | | | (GLUCOPHAGE) 500 mg | 2 times daily (with | | | | | | tablet | breakfast & | | | | | | | dinner). | | | | | + + + +---------+--------+ + | Multiple Vitamin | Take 1 tablet by | | 0 | | | | (DAILY MULTIVITAMIN | mouth Daily. | | | | | | PO) | | | | | | + + + +---------+--------+ + | Multiple | Take 1 tablet by | | 0 | | | | Vitamins-Minerals | mouth Daily. | | | | | | ([facility]) | | | | | | | MISC | | | | | | + + + +---------+--------+ + | [place]-3 Krill Oil | Take 1 capsule by | | 0 | | | | 500 MG CAPS | mouth Daily. | | | | | + + + +---------+--------+ + | omeprazole | Take 20 mg by mouth | | 0 | | | | (PRILOSEC) 20 mg | every morning | | | | | | capsule | (before breakfast). | | | | | + + + +---------+--------+ + | Potassium | Take 550 mg by | | 0 | | | | Gluconate 550 MG | mouth. As needed for | | | | | | TABS | leg discomfort, 1-2 | | | | | | | times a month | | | | | + + + +---------+--------+ + | Probiotic Product | Take by mouth | | 0 | | | | (PROBIOTIC DAILY PO) | Daily. | | | | | + + + +---------+--------+ + | Propylene Glycol | Apply 1 drop to eye | | 0 | | | | (SYSTANE BALANCE) | 4 times daily. | | | | | | 0.6 % SOLN | | | | | | + + + +---------+--------+ + | tocopherol | Take 400 Units by | | 0 | | | | (VITAMIN E) 400 | mouth Daily. | | | | | | units capsule | | | | | | + + + +---------+--------+ + | Turmeric 500 MG | Take 500 mg by mouth | | 0 | | | | CAPS | Daily. | | | | | + + + +---------+--------+ + documented as of this encounter Procedure Notes Huy Brown Jr., MD - 06/26/2015 8:43 AM PDTProcedure([place]): [place] [address] POLYSOMNOGRAPHY 4 OR MOREPre-Procedure Diagnose(s): PRABHJOT (obstructive sleep apnea)Post-Procedure Diagnose(s) : Snoring [facility] [place] [address] Polysomnogram Report on Tonya Suresh performed on 06/24/2015 Clinical Information: Tonya Suresh is a 74 y.o. female who underwent diagnostic nocturnal polysomnography on 06/24/[address] Isabella Hammond because of possible Obstructiv e Sleep Apnea. Technical Information: Please see technical data stored as Polysomnography under "Media" se ction in the [facility] EMR. Definitions (The AASM Manual for the Scoring of Sleep and Associated Events, Version 2.0; 2 012): Apnea: There is a drop in the peak signal excursion by 90% or greater of pre-event baselin e using an oronasal thermal sensor (diagnostic study), PAP device flow (titration study), or an alternative apnea sensor (diagnostic study); the duration of the 90% or greater drop in sensor signal is 10 seconds or longer. Obstructive Apnea: Event associated with continued or increased inspiratory effort throug hout the entire period of absent airflow. Central Apnea: Event associated with absent inspiratory effort throughout the entire kai od of absent airflow. Mixed Apnea: Event associated with absent inspiratory effort in the initial portion of th e event followed by resumption of inspiratory effort during the second portion of the event. Hypopnea: Nasal pressure excursion drop by 30% or more from baseline, lasting at lease 10 seconds and 90% of the event's duration meets this amplitude criteria. This is associated wi th a 4% or greater desaturation from pre-baseline. Respiratory Event Related Arousal: A sequence of breaths lasting 10 seconds or longer jacek acterized by increasing respiratory effort or by flattening of the inspiratory portion of th e nasal pressure (diagnostic study) or PAP device flow (titration study) waveform leading to arousal from sleep when the sequence of breaths does not meet criteria for an apnea or hypo pnea. Sleep Architecture: Lights out was recorded at 2309 hundred hours on 06/24/2015 and lights on was recorded at 0838 hundred hours on 06/25/2015. The latency to sleep onset was short at 3 minutes. The patient slept for 486 minutes out of 867.5 minutes of study time resulting an a sleep efficiency that was near normal at 85.6 %. The amount of N1 sleep was normal occupy ing 5.6% of the Total Sleep Time; the amount of N2 sleep was normal occupying 57.7% of the T otal Sleep Time; the amount of N3 sleep was normal occupying 12% of the Total Sleep Time; th e amount of REM sleep was normal occupying 24.7% of the Total Sleep Time and the latency to REM sleep was normal at 78 minutes. Sleep in the following positions was recorded: left lateral decubitus 99.1%, right lateral decubitus 0%, supine 0.9%, prone 0%. Sleep was minimally fragmented; the Arousal Index was 18.3. The patient reported this to be a "usual" night's sleep. Cardiopulmonary Monitoring: The heart rate averaged in the mid-50's beats per minute. Mild rate variability was noted. The rhythm was sinus. In the course of the evening there were 0 obstructive apneas, 1 mixed apneas, 1 central commercial shrimping captain eas, 4 hypopneas, and 82 Respiratory Effort Related Arousals (RERA's). The Respiratory Distu rbance Index (RDI) was mildly elevated at 10.9; the Apnea-Hypopnea Index was normal at 0.7; the Apnea Index (AI) was normal at 0.2. The respiratory events were not sleep stage dependen t. The respiratory events were very positional although very little sleep was recorded in th e supine position. The respiratory events occasioned moderate sleep fragmentation; the Respiratory Arousal Ind ex was 10.6. The vincent oxygen saturation was 91% and the patient spent 0 minutes with an oxygen saturati on of less than 88%. ETCO2 was normal. Limb Movement Monitoring: There were 90 Periodic Limb Movements (PLMS Index of 11.1) of whi ch 24 were associated with arousals; the PLMS Arousal Index was normal at 3. Interpretation: This polysomnogram is borderline secondary to: Mild Obstructive Sleep Apnea is diagnosed and it is associated with mild sleep fragmentatio n but it wasn't associated with significant oxygen desaturation. Very little supine sleep was recorded. Suggestions: 1. The principles of sleep hygiene should be reviewed with the patient. 2. If the patient sleeps supine frequently at home, the PSG could be repeated to see if mor e supine sleep could be obtained. Another option might be a CPAP trial. Lastly, if the patie nt doesn't sleep supine at home, no treatment might be an option. Huy Brown Jr., MD, [facility] Sap Fico Architect [facility] [place], [place] Clinical geography faculty member [place], [place] docum ented in this encounter Plan of Treatment Not on filedocumented as of this encounter Procedures + +--------+ + + + | Procedure Name | Priori | Date/Time | Associated Diagnosis | Comments | | | ty | | | | + +--------+ + + + | DIAGNOSTIC REPORT - | | 06/24/2015 | | | | EXTERNAL SCAN | | 12:00 AM | | | | | | PDT | | | + +--------+ + + + documented in this encounter Visit Diagnoses + + | Diagnosis | + + | PRABHJOT (obstructive sleep apnea) - Primary Obstructive sleep apnea (adult) (pediatric) | + + documented in this encounter
--- OUTSIDE RECORDS SUMMARY | ~2020-05-06 | XMS | Encounter Summary ---
Demographics + + + | Address | [address] | | | [place] [address] | + + + | Home Phone | | + + + | Preferred Language | Unknown | + + + | Marital Status | | + + + | Mu-Ism Affiliation | Unknown | + + + | Race | Unknown | + + + | Ethnic Group | Unknown | + + + Author + + + | Author | [facility] | | | and Rejiana | + + + | Organization | [facility] | | | and Rejiana [...] [place] | | | | | [address] | | + + + + + Care Team Providers + +------+ + | Care Supervisor Dehydrogenation Name | Role | Phone | + +------+ + | Eliud Hammond MD | PCP | | + +------+ + Reason for Visit +--------+ + | Reason | Comments | +--------+ + | Other | sleep results | +--------+ + Encounter Details +--------+---------+ + + + | Date | Type | Department | Care Team | Description | +--------+---------+ + + + | 07/22/ | Office | [facility] | Huy Brown | PRABHJOT (obstructive | | 2014 | Visit | SLEEP DISORDER [address] | MD [address] | sleep apnea) | | | | [address] [place] | [address] [place] | (Primary Dx) | | | | [place] [address] | [place] [address] | | | | | [phone] | [phone] | | | | | | | [...] + + + + | Height | - | - | | + + + + + | Body Mass Index | 25.92 | 05/28/2015 10:49 AM | | | | | PDT | | + + + + + documented in this encounter Progress Notes Huy Brown Jr., MD - 07/22/2015 10:13 AM PDT The patient comes in for follow-up after undergoing diagnostic polysomnography. My interpre tation of the patient's sleep study, which I have reviewed with the patient, is as follows: Polysomnogram Report on Tonya Suresh performed on 06/24/2015 Clinical Information: Tonya Suresh is a 74 y.o. female who underwent diagnostic nocturnal polysomnography on 06/24/[address] Isabella Hammond because of possible Obstructive Sleep Apnea. Technical Information: Please see technical data stored as Polysomnography under "Media" se ction in the [facility] EMR. Definitions (The AASM Manual for the Scoring of Sleep and Associated Events, Version 2.0; 2 012): Apnea: There is a drop in the peak signal excursion by 90% or greater of pre-event baseline using an oronasal thermal sensor (diagnostic study), PAP device flow (titration study), or an alternative apnea sensor (diagnostic study); the duration of the 90% or greater drop in s ensor signal is 10 seconds or longer. Obstructive Apnea: Event associated with continued or increased inspiratory effort througho ut the entire period of absent airflow. Central Apnea: Event associated with absent inspiratory effort throughout the entire period of absent airflow. Mixed Apnea: Event associated with absent inspiratory effort in the initial portion of the event followed by resumption of inspiratory effort during the second portion of the event. Hypopnea: Nasal pressure excursion drop by 30% or more from baseline, lasting at lease 10 s econds and 90% of the event's duration meets this amplitude criteria. This is associated wit h a 4% or greater desaturation from pre-baseline. Respiratory Event Related Arousal: A sequence of breaths lasting 10 seconds or longer arleen cterized by increasing respiratory effort or by flattening of the inspiratory portion of the nasal pressure (diagnostic study) or PAP device flow (titration study) waveform leading to arousal from sleep when the sequence of breaths does not meet criteria for an apnea or hypop derrick. Sleep Architecture: Lights out was recorded at [...] obstructive apneas, 1 mixed apneas, 1 central warehouse technician eas, 4 hypopneas, and 82 Respiratory Effort [...] home, no treatment might be an option. BP 124/82 mmHg | Pulse 61 | Resp 14 | Wt 60.011 kg (132 lb 4.8 oz) | SpO2 98% A: PRABHJOT: The patient has very mild PRABHJOT. She states that she never sleeps supine. She does no t wish to try CPAP but is willing to try a dental appliance which I think is very appropriat eJhonatan P: Refer to Dr. Alyssa Bucio for consultation regarding dental appliance therapy for snoring an d mild PRABHJOT. RTC 6 months. Today, 15 minutes was spent face to face with the patient; the majority of time was spent c graciela regarding PRABHJOT. documented in th is encounter Plan of Treatment Not on filedocumented as of this encounter Visit Diagnoses + + | Diagnosis | + + | PRABHJOT (obstructive sleep apnea) - Primary Obstructive sleep apnea (adult) (pediatric) | + + documented in this encounter
--- OUTSIDE RECORDS SUMMARY | ~2020-05-06 | XMS | Encounter Summary ---
Demographics + + + | Address | [address] | | | [place] [address] | + + + | Home Phone | | + + + | Preferred Language | Unknown | + + + | Marital Status | | + + + | Worship Affiliation | NRP | + + + | Race | White | + + + | Ethnic Group | Not or | + + + Author + + + | Author | [facility] | + + + | Organization | [facility] | + + + | Address | Unknown | + + + | Phone | Unavailable | + + + Support + + + + + | Name | Relationship | Address | Phone | + + + + + | Andrzej Campos | ECON | [address] | | | | | [place] | | | | | [address] | | + + + + + Care Team Providers + +------+ + | Care Area Operations Manager Name | Role | Phone | + [...] | | | | | | | [place], [place] | | | | | | | [address] | | | | | | | Phone: | | | | | | | [phone] | | | | | | | Fax: | | | | | | | [phone] | +--------+--------+ + + + + Encounter Details +--------+---------+ + + + | Date | Type | Department | Care Team | Description | +--------+---------+ + + + | 05/17/ | Office | [facility] | Horace Tan MD | Nonexudative | | 2017 | Visit | [place] [facility] | [address] | age-related macular | | | | Alex [address] | [address] | degeneration, | | | | [facility] | [place], [place] | bilateral, | | | | Clinic [place], | [address] | intermediate dry | | | | [place] [address] | [phone] | stage (Primary Dx) | | | | [phone] | | | +--------+---------+ + + + [...] Instructions Patient Instructions Horace Tan MD - 05/17/2017 1:45 PM PDTReturn to clinic before sc hedule follow up [...] time!) Fix your gaze on the black round valley in the center of the grid. Use [...] encounter Progress Notes Horace Tan MD - 05/17/2017 1:45 PM PDT [facility] Progress Note 05/17/2017 Assessment & Plan: 76 y.o. 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 OCT CMT Description Right 290 (05/17/17 1400) Comments:: Drusen, decrease in pseudo-vitelliform material , early atrophy Fluid:: No fluid Left 414 (05/17/17 1400) Comments:: Drusen, psuedo-vitelliform material Fluid:: No fluid Chief Complaint: Follow-up visit AMD - Age-related macular degeneration HPI: Vision stable, no new changes or complaints. Consistent with glaucoma drops. Current Outpatient Prescriptions (Ophthalmic Medications) Medication Sig [...] file Examination: See Ophthalmology Module Attestations: The refinish technician, 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, [...] | | 2019 | Visit | | [address] | | | | | | [address] | | | | | | [place], [place] | | | | | | [address] | | | | | | [phone] | | | | | | | | +--------+---------+ + + + | 07/29/ | Office | Ophthalmology | Horace Tan MD | | | 2019 | Visit | | [address] | | | | | | [address] | | | | | | [facility], [place] | | | | | | [address] | | | | | | [phone] | | | | | | | | +--------+---------+ + + + documented as of this encounter Visit Diagnoses + + | Diagnosis | + + | Nonexudative age-related macular degeneration, bilateral, intermediate dry stage - | | Primary | + + documented in this encounter"
--- OUTSIDE RECORDS SUMMARY | ~2020-05-06 | XMS | Encounter Summary ---
Demographics + + + | Address | [address] | | | [place] [address] | + + + | Home Phone | | + + + | Preferred Language | Unknown | + + + | Marital Status | | + + + | Restorationism Affiliation | NRP | + + + | Race | White | + + + | Ethnic Group | Not or | + + + Author + + + | Author | [facility] | + + + | Organization | [facility] | + + + | Address [...] [place] | | | | | [address] | | + + + + + Care Team Providers + +------+ + | Care Supervisor Silvering Department Name | Role | Phone | + [...] | | | | | | | [address] | | | | | | | [address] | | | | | [address] | | | | | | | [place], [place] | | | | | | | [address] | | | | | | | Phone: | | | | | | | [phone] | | | | | | | Fax: | | | | | | | [phone] | +--------+--------+ + + + + Encounter Details +--------+---------+ + + + | Date | Type | Department | Care Team | Description | +--------+---------+ + + + | 09/26/ | Office | [facility] | Horace Tan MD | Nonexudative | | 2018 | Visit | [place] [facility] | [address] | age-related macular | | | | Alex [facility] | [address] | degeneration, | | | | [facility] | [place], [place] | bilateral, | | | | Clinic [place], | [address] | intermediate dry | | | | [place] [address] | [phone] | stage; Exudative | | | | [phone] | | age-related macular | | | [...] AM PST [facility] Progress Note 09/26/2018 Assessment & Plan: 78 [...] Hx Examination: See Ophthalmology Module Attestations: The alignment technician, 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, [...] [address] | | | | | | [place], [place] | | | | | | [address] | | | | | | [phone] | | | | | | | | +--------+---------+ + + + | 07/29/ | Office | Ophthalmology | Horace Tan MD | | | 2019 | Visit | | [address] | | | | | [address] | | | | | | [place], [place] | | | | | | [address] | | | | | | [phone] | | | | | | | [...] 1.25 mg/0.05 mL | | | [facility]: [id number] | | | Lot: [id number] (7 [id number]) | | | Expiration Date: [...] Performed At | + + + | Shoe Salesman | [facility] | | [facility] [...] + + | [facility] | [address] | [place] [address] | | | [place] | Kristy. | [...]
--- OUTSIDE RECORDS SUMMARY | ~2020-05-06 | XMS | Encounter Summary ---
Demographics + + + | Address | [address] | | | [place] [address] | + + + | Home Phone | | + + + | Preferred Language | Unknown | + + + | Marital Status | | + + + | Evangelical Affiliation | NRP | + + + [...] | Andrzej Campos | ECON | [address] | | | | | [place] | | | | | [address] | | + + + + + Care Team Providers + +------+ + | Care Geospatial Extractor Analysis Name | Role | Phone | + [...] | | | | | | | [address] | | | | | | | [address] | | | | [address] | | | | | | | [place], [place] | | | | | | | [address] | | | | | | | Phone: | | | | | | | [phone] | | | | | | | Fax: | | | | | | | [phone] | +--------+--------+ + + + + Encounter Details +--------+---------+ + + + | Date | Type | Department | Care Team | Description | +--------+---------+ + + + | 02/14/ | Office | [facility] | Horace Tan MD | Exudative | | 2018 | Visit | [place] [facility] | [address] | age-related macular | | | | Alex [facility] [address] | [address] | degeneration of left | | | | [facility] | [place], [place] | 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[place], | [address]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 | | | | [place] [address] | [phone] | neovascularization | | | | [phone] | | (HCC) | +--------+---------+ + + [...] Tan MD - 02/14/2018 2:45 PM PDT [facility] Progress Note 02/14/2018 Assessment & Plan: 77 [...] file Examination: See Ophthalmology Module Attestations: The gis technician, 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, [...] [address] | | | | | | [place], [place] | | | | | | [address] | | | | | | [phone] | | | | | | | | +--------+---------+ + + + | 07/29/ | Office | Ophthalmology | Horace Tan MD | | | 2019 | Visit | | [address] | | | | | | [address] | | | | | | [place], [place] | | | | | | [address] | | | | | | [phone] | | | | | | | [...] bevacizumab 1.25 mg/0.05 mL | | | [facility]: [id number] | | | Lot: [id number] ([id number]) | | | Expiration Date: 03/22/2018 [...] | + + + + + | [facility] | [address] | [place] [address] | | | [place] | Kristy. | [...]
--- OUTSIDE RECORDS SUMMARY | ~2020-05-06 | XMS | Encounter Summary ---
Demographics + + + | Address | [address] | | | [place] [address] | + + + | Home Phone | | + + + | Preferred Language | Unknown | + + + | Marital Status | | + + + | Muslim Affiliation | NRP | + + + | Race | White | + + + | Ethnic Group | Not or | + + + Author + + + | Author | [facility] | + + + | Organization | [facility] | + + + | Address | [...] [place] | | | | | [address] | | + + + + + Care Team Providers + +------+ + | Care Preschool Assistant Director Name | Role | Phone | [...] angle | | 2016 | Visit | [facility] | ,PhD [address] | glaucoma of both | | | | at [facility] [address] | [address] 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 States that it is stable for the [...] comparison. Visual Field Interpretation (Outside clinic 11/18/2015) Smith 24-2 visual field- ZAK fast OD: Reliable, [...] anyone locally. Would like retina referral at [facility]. 3. Early cataracts OU Discontinue Combigan due to cost Start timolol/dorzolamide combination BID OU Start brimonidine BID OU Refer to Retina colleagues for possible pattern/vitelliform dystrophy evaluation IOP check locally with Dr. Farley in 1 month (if IOP not a target of about 15, then consid er returning here for SLT) Heidi Melo MD PGY3 Ophthalmology Resident [facility] I personally interviewed the patient, performed the pertinent parts of the physical examina tion and personally formulated the plan with the resident. I agree with the residents docum entation and have documented any additions or exceptions. Gail Peralta MD, PhD Performance Tester of Ophthalmology Glaucoma Service [facility] [place] documented in th is encounter Plan of Treatment +--------+---------+ + + + | Date | Type | Specialty | Care Team | Description | +--------+---------+ + + + | 06/17/ | Office | Ophthalmology | Jeferson Villarreal MD | | | 2019 | Visit | | [address] | | | | | [address] | | | | | | [place], [place] | | | | | | [address] | | | | | | [phone] | | | | | | | | +--------+---------+ + + + | 07/29/ | Office | Ophthalmology | Jeferson Villarreal MD | | | 2019 | Visit | | [address] | | | | | | [address] | | | | | | [place], [place] | | | | | | [address] | | | | | | [phone] | | | | | | | [...] | + +--------+ + + + | [facility] | Routin | 01/08/2016 | Primary [...] | + +--------+ + + + | [facility] | Routin | 01/08/2016 | [...]
--- OUTSIDE RECORDS SUMMARY | ~2020-05-06 | XMS | Encounter Summary ---
Demographics + + + | Address | [address] | | | [place] [address] | + + + | Home Phone | | + + + | Preferred Language | Unknown | + + + | Marital Status | | + + + | Baptist Affiliation | NRP | + + + | Race | White | + + + | Ethnic Group | Not or | + + + Author + + + | Author | [facility] | + + + | Organization | [facility] | + + + | Address | Unknown | + + + | Phone | Unavailable | + + + Support + + + + + | Name | Relationship | Address | Phone | + + + + + | Andrzej Campos | ECON | [address] | | | | | [place] | | | | | [address] | | + + + + + Care Team Providers + +------+ + | Care Passenger Conductor Name | Role | Phone | + +------+ + | Carlo Soto MD | PCP | | + +------+ + Encounter Details +--------+ + + + + | Date | Type | Department | Care Team | Description | +--------+ + + + + | 03/16/ | Telephone | [facility] | Jeferson Villarreal MD | | | 2015 | | [facility] at | [address] | | | | | [address] | [address] | | | | | [address] | [place], [place] | | | | | Eye [place] | [address] | | | | | floor [place], [place] | [phone] | | | | | [address]- [phone] | | | +--------+ + + + [...] [address] | | | | | | [place], [place] | | | | | | [address] | | | | | | [phone] | | | | | | | | +--------+---------+ + + + | 07/29/ | Office | Ophthalmology | Jeferson Villarreal MD | | | 2020 | Visit | | [address] | | | | | | [address] | | | | | | [place], [place] | | | | | | [address] | | | | | | [phone] | | | | | | | | +--------+---------+ + + + documented as of this encounter Visit Diagnoses Not on filedocumented in this encounter"
--- OUTSIDE RECORDS SUMMARY | ~2020-05-06 | XMS | Encounter Summary ---
Demographics + + + | Address | [address] | | | [place] [address] | + + + | Home Phone | | + + + | Preferred Language | Unknown | + + + | Marital Status | | + + + | Bahai Affiliation | NRP | + + + | Race | White | + + + | Ethnic Group | Not or | + + + Author + + + | Author | [facility] | + + + | Organization | [facility] | + + + | Address | Unknown | + + + | Phone | Unavailable | + + + Support + + + + + | Name | Relationship | Address | Phone | + + + + + | Andrzej Campos | ECON | [address] | | | | | [place] | | | | | [address] | | + + + + + Care Team Providers + +------+ + | Care Nutrition Partner Name | Role | Phone | + [...] | | | | | | | [place], [place] | | | | | | | [address] | | | | | | | Phone: | | | | | | | [phone] | | | | | | | Fax: | | | | | | | [phone] | +--------+--------+ + + + + Encounter Details +--------+---------+ + + + | Date | Type | Department | Care Team | Description | +--------+---------+ + + + | 05/29/ | Office | [facility] | Jeferson Villarreal MD | Nonexudative | | 2019 | Visit | [place] [facility] | [address] | age-related macular | | | | [address] | [address] | degeneration, | | | | [facility] | [place], [place] | bilateral, | | | | Clinic [place], | [address] | intermediate dry | | | | [place] [address] | [phone] | stage; Exudative | | | | [phone] | | age-related macular | | | [...] Instructions Patient Instructions Jeferson Villarreal MD - 05/29/2019 1:45 PM PDTReturn before scheduled vi sit with decreasing vision, distortion, or new shower of floaters. documented in this encounter Progress Notes Jeferson Villarreal MD - 05/29/2019 1:45 PM PDT [facility] Progress Note 05/29/2019 Assessment & Plan: 78 y.o. 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 Still increased IRF OS today after q4w Avastin, multiple avasti n without resolution of fluid Wet/GA OD with resolved SRF, no recurrence PARQ Eylea OS Observe OD Call for decreased vision, increased distortion, increased pain, new floaters or flashing l ights Follow up: Return in about 5 weeks (around 07/03/2019). Chief Complaint: Follow-up visit AMD - Age-related [...] Blvd | | | | | | [place], [place] | | | | | | [address] | | | | | | [phone] | | | | | | | | +--------+---------+ + + + | 07/29/ | Office | Ophthalmology | Jeferson Villarreal MD | | | 2020 | Visit | | [address] | | | | | [address] | | | | | | [place], [place] | | | | | | [address] | | | | | | [phone] | | | | | | | | +--------+---------+ + + + documented as of this encounter Procedures + +--------+ + + + | Procedure Name | Priori | Date/Time | Associated Diagnosis | Comments | | | ty | | | | + +--------+ + + + | EYLEA INJ - OS - | Routin | 05/29/2019 | Exudative | Results for this | | LEFT EYE | e | 3:05 PM | age-related macular | procedure are in the | | | | PDT | degeneration of both | results section. | | | | | eyes with active | | | | |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 | | | | | | neovascularization | | | | | | (HCC) | | + +--------+ + + + | OCT, RETINA | Routin | 05/29/2019 | Nonexudative | Results for this | | | e | 2:54 PM | age-related macular | procedure are in the | | | | PDT | degeneration, | results section. | | | | | bilateral, | | | | | | intermediate dry | | | | | | stage | | + +--------+ + + + documented in this encounter Results EYLEA INJECTION - OS - LEFT EYE (05/29/2019 3:05 PM PDT) + + + | Narrative [...] 2 mg/0.05 mL | | | [facility]: 12410-850-42 | | | Lot: [id number] | | | Expiration Date: 02/05/2020 | | | Route: intravitreal | | | Site: Left Eye | | | | | | Estimated blood loss: none | | | | | | | | | Post Op | | | Post procedure assessment: visual acuity at least count fingers, eye | | | rinsed, patient tolerated procedure well | | + + + OCT, RETINA (05/29/2019 2:54 PM PDT) + + + | Narrative | Performed At | + + + | Perishable Freight Inspector | [facility] | | [facility] [...] [facility] | [address] | [place] [address] | | | [place] | Kristy. | [...] + | aflibercept intravitreal | Given | 05/29/20 | 2 mg | | Left Eye | | injection 2 mg 2 mg, | | 19 3:05 | | | | | intravitreal, ONCE PRN (IPROC), 1 | | PM PDT | | | | | dose, Starting Mon05/29/19 at | | | | | | | 1505, Until Mon05/29/19 at 1505 | | | | | | + +--------+ +------+------+ + +---+---+ | | | +---+---+ documented in this encounter"
--- OUTSIDE RECORDS SUMMARY | ~2020-05-06 | XMS | Encounter Summary ---
Demographics + + + | Address | [address] | | | [place] [address] | + + + | Home Phone | | + + + | Preferred Language | Unknown | + + + | Marital Status | | + + + | Christian Affiliation | NRP | + + + | Race | White | + + + | Ethnic Group | Not or | + + + Author + + + | Author | [facility] | + + + | Organization | [facility] | + + + | Address | Unknown | + + + | Phone | Unavailable | + + + Support + + + + + | Name | Relationship | Address | Phone | + + + + + | Andrzej Campos | ECON | [address] [facility] | | | | | [place] | | | | | [address] | | + + + + + Care Team Providers + +------+ + | Care Stock Driver Name | Role | Phone | + +------+ + | Carlo Soto MD | PCP | | + +------+ + Reason for Visit + + + | Reason | Comments | + + + | Medication Questions | | + + + Encounter Details +--------+--------+ + + + | Date | Type | Department | Care Team | Description | +--------+--------+ + + + | 05/23/ | Refill | [facility] | Gail Peralta, | Medication Questions | | 2016 | | [facility] | ,PhD [address] | | | | | at [facility] [address] | [address] [place], [place] | | | | | [facility] Mailcode: [facility] | [address] | | | | | [facility] | [phone] | | | | | and Healing, | | | | | | | | | | | | [place], [place] | | | | | | [address] | | | | | | [phone] | | | +--------+--------+ + + + [...] [address] | | | | | | [place], [place] | | | | | | [address] | | | | | | [phone] | | | | | | | | +--------+---------+ + + + | 07/29/ | Office | Ophthalmology | Jeferson Villarreal MD | | | 2020 | Visit | | [address] | | | | | | [address] | | | | | | [place] | | | | | | [address] | | | | | | [phone] | | | | | | | | +--------+---------+ + + + documented as of this encounter Visit Diagnoses Not on filedocumented in this encounter"
--- OUTSIDE RECORDS SUMMARY | ~2020-05-06 | XMS | Encounter Summary ---
Demographics + + + | Address | [address] | | | [place] [address] | + + + | Home Phone | | + + + | Preferred Language | Unknown | + + + | Marital Status | | + + + | Samaritan Affiliation | NRP | + + + [...] [place] | | | | | [address] | | + + + + + Care Team Providers + +------+ + | Care Boots And Shoes Supervisor Name | Role | Phone | + [...] | | | | | | | [place], [place] | | | | | | | [address] | | | | | | | Phone: | | | | | | | [phone] | | | | | | | Fax: | | | | | | | [phone] | +--------+--------+ + + + + Encounter Details +--------+---------+ + + + | Date | Type | Department | Care Team | Description | +--------+---------+ + + + | 08/30/ | Office | [facility] | Horace Tan MD | Nonexudative | | 2017 | Visit | [facility] [place] [facility] | [address] | age-related macular | | | | [address] | [address] | degeneration, | | | | [facility] | [place], [place] | bilateral, | | | | Clinic [place], | [address] | intermediate dry | | | | [place] [address] | [phone] | stage (Primary Dx) | | | | [phone] | | | +--------+---------+ + + + [...] Tan MD - 08/30/2017 10:00 AM PDT [facility] Progress Note 08/30/2017 Assessment & Plan: 76 [...] file Examination: See Ophthalmology Module Attestations: The chemistry quality control technician, 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, [...] [address] | | | | | | [place], [place] | | | | | | [address] | | | | | | [phone] | | | | | | | | +--------+---------+ + + + | 07/29/ | Office | Ophthalmology | Horace Tan MD | | | 2019 | Visit | | [address] | | | | | [address] | | | | | | [place], [place] | | | | | | [address] | | | | | | [phone] | | | | | | | | +--------+---------+ + + + documented as of this encounter Visit Diagnoses + + | Diagnosis | + + | Nonexudative age-related macular degeneration, bilateral, intermediate dry stage - | | Primary | + + documented in this encounter"
--- OUTSIDE RECORDS SUMMARY | ~2020-05-06 | XMS | Encounter Summary ---
Demographics + + + | Address | [address] | | | [place] [address] | + + + | Home Phone | | + + + | Preferred Language | Unknown | + + + | Marital Status | | + + + | Buddhist Affiliation | NRP | + + + [...] | Andrzej Campos | ECON | [address] [facility] | | | | | [place] | | | | | [address] | | + + + + + Care Team Providers + +------+ + | Care Automatic Drill Operator Name | Role | Phone | + +------+ + | Carlo Soto MD | PCP | | + +------+ + Reason for Visit + + + | Reason | Comments | + + + | New patient | | | consultation | | + + + AUTH/CERT +--------+--------+ + + + + | [...] Description | +--------+---------+ + + + | 10/28/ | Office | Orthopaedics at | Isadora Benavides, | Bone lesion (Primary | | 2014 | Visit | [facility] [address] | MD [address] | Dx) | | | | [address] | [place], [place] | | | | | Mailcode: [id number] | [address] | | | | | [facility] | [phone] | | | | | [place], [place] | | | | | | [address] | | | | | | [phone] | | | +--------+---------+ + + + [...] + + + | Blood Pressure | 122/76 | 10/28/2015 9:48 AM | | | | | PST | | + + + + + | Pulse | 65 | 10/28/2015 9:48 AM | | | | | PST | | + + + + + | Temperature | - | - | | + + + + + | Respiratory Rate | - | - | | + + + + + | Oxygen Saturation | - | - | | + + + + + | Inhaled Oxygen | - | - | | | Concentration | | | | + + + + + | Weight | 58.5 kg (129 lb) | 10/28/2015 9:48 AM | | | | | PST | | + + + + + | Height | 149.9 cm (4' 11") | 10/28/2015 9:48 AM | | | | | PST | | + + + + + | Body Mass Index | 26.05 | 10/28/2015 9:48 AM | | | | | PST | | + + + + + documented in this encounter Progress Notes Isadora Benavides MD - 10/28/2015 10:05 AM PSTFormatting of this note might be different fr om the original. Dx: bone lesions in R ilium and L sacrum Chief Complaint: b/l buttock pain This is a consultation from David Marin MD HPI: History obtained through patient and previous medical records. Previous medical records we re reviewed and details are summarized below. 75 y.o. F is here for b/l buttock pain. R sided buttock pain starting in July. Sever e pain w walking. No trauma. Sudden onset. Saw PCP who thought it was SI jt problem. 4 w ks later, spontaneously improved. Then L side bothered her. L side was more achy in nature . Now with minimal pain. Takes diclofenac for pain control. Has noticed that without medi cation, it will ache. Because of b/l pain, got an MRI. Saw dr. Natalio marin for further morena luation. There were bone lesions seen on MRI and is here for further evaluation. Walking u nlimited distance and without assistive device. Able to take stairs. No radiating symptoms . No recent illnesses. Normal mammos. colonscopy last summer, was clean. Used to take fosamax for osteoporosis b ut stopped 8 years ago. Lives in [place]. 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 Had a 24 hr urine done. No results yet. Blood tests: normal CRP, ESR 24. SPEP negative. The patient denies constitutional symptoms, including weight loss, night sweats, and fatigu e. Past Medical History Diagnosis Date Diabetes (HCC) Hypothyroid Osteoporosis Osteoarthritis Past Surgical History Procedure Laterality Date Caesarean section x3 Excision of gall bladder Allergies: Allergies Allergen Reactions Red Dye Hives Cephalexin Rash Medications: Current outpatient prescriptions: levothyroxine 75 mcg oral tablet, , Disp: , Rfl: metFORMIN 500 mg oral tablet, Take by mouth., Disp: , Rfl: omeprazole 20 mg oral capsule,delayed release(DR/EC), Take by mouth., Disp: , Rfl: History Social History Marital Status: Spouse Name: N/A Number of Children: N/A Years of Education: N/A Social History Main Topics Smoking status: Never Smoker Smokeless tobacco: Never Used Alcohol Use: 4.2 oz/week 7 Glasses of wine per week Drug Use: No Sexual Activity: Not on file Other Topics Concern Not on file Social History Narrative No narrative on file Family history: Family History Problem Relation Cancer Neg Hx Review of systems: A complete review of systems was performed, including the following: Constitutional Eyes Ears, nose mouth, throat Cardiovascular Respiratory Gastrointestinal Genitourinary Musculoskeletal Skin Neurologic General Health Hematologic or Lymphatic Allergic or immunologic For pertinent positives and negatives please refer to the patient's intake form which was r eviewed and signed by me. Physical exam: BP 122/76 | Pulse 65 | Ht 1.499 m (4' 11") | Wt 58.514 kg (129 lb) | BMI 26.04 kg/(m^2) Today s vital signs are noted as recorded by the [facility]. General: Alert, awake, and oriented x3. No acute distress. Head, eyes, ears, nose, throat: Normocephalic, atraumatic. Extra-ocular muscles intact. No jugular venous distension. Chest: Symmetrical, normal inspiratory effort Back: No step-offs, no tenderness to palpation midline. With mild ttp b/l SI jts. Equal. Abdomen: Soft, non-tender, non-distended. No palpable masses. No guarding, no rebound. Neuro psych: normal gait, coordination. Able to walk on toes and walk on heels. Appropria te mood and affect. B/L LE: ROM hip symmetric and painless.5/5 IP/Q/TA/EHL/GS. SILT SP/DP/T. Palp DP pulse. N o inguinal lymphadenopathy. With slight weakness and pain on use of R abductors. No pain o n use of L abductors. With ttp along posterior R ilium. No ttp L ilium or L sacrum. Skin intact. Imaging: MRI from 10/07/2015 was interpreted by me, and shows changes on T1 and T2 and contrast enhan cement in R ilium and L sacral ala. CT scan from 10/08/2015 was interpreted by me, and shows normal bone in sacrum and ilium b/l . Bone scan from 10/07/2015 was interpreted by me, and shows increased uptake in the 2 areas o f concern. Assessment: multifocal bone lesions. ddx includes malignancy (metastatic disease, myeloma, lymphoma), insufficiency fractures, polyostotic benign tumor, multifocal osteomyelitis. Plan: All clinical and imaging data were reviewed with the patient today. -pt scheduled for CT guided needle biopsy today. After discussion w patient today, I still think this is a very good idea -after biopsy results have returned, which take about 1 week, we need to call patient with results. If it is a malignancy and not a sarcoma, will need to see local oncologist for fur ther treatment plans. If no marrow abnormality seen, could observe and treat as insufficien cy fracture. If concern for osteomyelitis, may need further surgery for cultures. -pt to return PRN, if surgery necessary. Will depend on path results. documented in this e ncounter Plan of Treatment +--------+---------+ + + + | Date | Type | Specialty | Care Team | Description | +--------+---------+ + + + | 06/17/ | Office | Ophthalmology | Jeferson Villarreal MD | | | 2019 | Visit | | [address] | | | | | | [address] | | | | | | [place], [place] | | | | | | [address] | | | | | | [phone] | | | | | | | | +--------+---------+ + + + | 07/29/ | Office | Ophthalmology | Jeferson Villarreal MD | | | 2019 | Visit | | [address] | | | | | | [address] | | | | | | [place], [place] | | | | | | [address] | | | | | | [phone] | | | | | | | | +--------+---------+ + + + documented as of this encounter Procedures + +--------+ + + + | Procedure Name | Priori | Date/Time | Associated Diagnosis | Comments | | | ty | | | | + +--------+ + + + | PROCEDURE NOTE | Routin | 12/10/2015 | | Results for this | | | e | 10:53 AM | | procedure are in the | | | | PST | | results section. | + +--------+ + + + documented in this encounter Results PROCEDURE NOTE (12/10/2015 10:53 AM PST)documented in this encounter Visit Diagnoses + + | Diagnosis | + + | Bone lesion - Primary Disorder of bone and cartilage, unspecified | + + documented in this encounter
--- OUTSIDE RECORDS SUMMARY | ~2020-05-06 | XMS | Encounter Summary ---
Demographics + + + | Address | [address] | | | [place] [address] | + + + | Home Phone | | + + + | Preferred Language | Unknown | + + + | Marital Status | | + + + | Faith Affiliation | NRP | + + + | Race | White | + + + | Ethnic Group | Not or | + + + Author + + + | Author | [facility] | + + + | Organization | [facility] | + + + | Address | Unknown | + + + | Phone | Unavailable | + + + Support + + + + + | Name | Relationship | Address | Phone | + + + + + | Andrzej Campos | ECON | [address] [facility] | | | | | [place] | | | | | [address] | | + + + + + Care Team Providers + +------+ + | Care Geology Faculty Member Name | Role | Phone | + [...] To Cancel | | 2015 | | [facility] Gl[facility] | ,PhD [address] | Appointment | | | | at [facility] [address] | [address] [place], [place] | | | | | Av Mailcode: [facility] | [address] | | | | | [facility] | [phone] | | | | | and [facility], | | | | | | Building | | | | | | Floor [facility] [place] | | | | | | [address] | | | | | | [phone] | | | +--------+ + + + [...] | | 2020 | Visit | | [address] | | | | | | [address] | | | | | | [place], [place] | | | | | | [address] | | | | | | [phone] | | | | | | | | +--------+---------+ + + + | 07/29/ | Office | Ophthalmology | Jeferson Villarreal MD | | | 2020 | Visit | | [address] | | | | | [address] | | | | | | [place] | | | | | | [address] | | | | | | [phone] | | | | | | | | +--------+---------+ + + + documented as of this encounter Visit Diagnoses Not on filedocumented in this encounter"
--- OUTSIDE RECORDS SUMMARY | ~2020-05-06 | XMS | Encounter Summary ---
Demographics + + + | Address | [address] | | | [place] [address] | + + + | Home Phone | | + + + | Preferred Language | Unknown | + + + | Marital Status | | + + + | Hindu Affiliation | NRP | + + + | Race | White | + + + | Ethnic Group | Not or | + + + Author + + + | Author | [facility] | + + + | Organization | [facility] | + + + | Address | Unknown | + + + | Phone | Unavailable | + + + Support + + + + + | Name | Relationship | Address | Phone | + + + + + | Andrzej Campos | ECON | [address] [facility] [facility] | | | | | [place] | | | | | [address] | | + + + + + Care Team Providers + +------+ + | Care Assistant Designer Name | Role | Phone | + [...] | | | | | | | [address] | | | | | | | [address] | | | | | | | [place], [place] | | | | | | | [address] | | | | | | | Phone: | | | | | | | [phone] | | | | | | | Fax: | | | | | | | [phone] | +--------+--------+ + + + + Encounter Details +--------+---------+ + + + | Date | Type | Department | Care Team | Description | +--------+---------+ + + + | 03/16/ | Office | [facility] | Horace Tan MD | Bilateral | | 2016 | Visit | [facility] | [address] | nonexudative | | | | [facility] | [address] | age-related macular | | | | [facility] | [place], [place] | degeneration | | | | Clinic [place], | [address] | (Primary Dx); | | | | [place] [address] | [phone] | Nonneovascular | | | | [phone] | | age-related macular | | | [...] Tan MD - 03/22/2016 10:24 AM PDT [facility] Progress Note 03/16/2016 Assessment & Plan: [...] Chief Complaint: Comprehensive eye examination 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 Farley [...] ago. Pt does not monitor BS at [facility] e. Pt is due for A1C [...] Cancer. Examination: See Ophthalmology Module Attestations: The water treatment technician, 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, [...] [place] | | | | | | [address] | | | | | | [phone] | | | | | | | | +--------+---------+ + + + | 07/29/ | Office | Ophthalmology | Horace Tna MD | | | 2019 | Visit | | [address] | | | | | | [address] | | | | | | [place], [place] | | | | | | [address] | | | | | | [phone] | | | | | | | [...] | + +--------+ + + + | IN CPTR OPHTH DX IMG | Routin | [...] + + documented in this encounter Results IN CPTR OPHTH DX IMG POST SEGMT-RETINA (03/16/2016) [...]
--- OUTSIDE RECORDS SUMMARY | ~2020-05-06 | XMS | Encounter Summary ---
Demographics + + + | Address | [address] | | | [place] [address] | + + + | Home Phone | | + + + | Preferred Language | Unknown | + + + | Marital Status | | + + + | Latter-Day Affiliation | NRP | + + + | Race | White | + + + | Ethnic Group | Not or | + + + Author + + + | Author | [facility] | + + + | Organization | [facility] | + + + | Address | Unknown | + + + | Phone | Unavailable | + + + Support + + + + + | Name | Relationship | Address | Phone | + + + + + | Andrzej Campos | ECON | [address] [facility] | | | | | [place] | | | | | [address] | | + + + + + Care Team Providers + +------+ + | Care Wood Planer Name | Role | Phone | + +------+ + | Carlo Soto MD | PCP | | + +------+ + Reason for Visit + + + | Reason | Comments | + + + | Fundus photography | OU | + + + Encounter Details +--------+ + + + + | Date | Type | Department | Care Team | Description | +--------+ + + + + | 01/07/ | Diagnostic | [facility] | | Fundus photography | | 2016 | Visit | [place] | | (OU) | | | | Photography at [facility] | | | | | | [address] | | | | | | Mailcode: CH11P | | | | | | [facility] | | | | | | and Healing, | | | | | | Building | | | | | | Floor [place], [place] | | | | | | [address] | | | | | | [phone] | | | +--------+ + + + [...] + documented as of this encounter Progress Jose Maria Gilmore - 01/08/2016 4:48 PM PSTThe interpretation for the following study: Fundus photography - OU can be found on physician encounter on 01/08/2016. documented in this encounte r Plan of Treatment +--------+---------+ + + + | Date | Type | Specialty | Care Team | Description | +--------+---------+ + + + | 06/17/ | Office | Ophthalmology | Jeferson Villarreal MD | | | 2020 | Visit | | [address] | | | | | [address] | | | | | | [facility] [place] | | | | | | [address] | | | | | | [phone] | | | | | | | | +--------+---------+ + + + | 07/29/ | Office | Ophthalmology | Jeferson Villarreal MD | | | 2020 | Visit | | [address] | | | | | | [address] | | | | | | [place], [place] | | | | | | [address] | | | | | | [phone] | | | | | | | | +--------+---------+ + + + documented as of this encounter Visit Diagnoses + + | Diagnosis | + + | OHT (ocular hypertension), bilateral | + + documented in this encounter"
--- OUTSIDE RECORDS SUMMARY | ~2020-05-06 | XMS | Encounter Summary ---
Demographics + + + | Address | [address] | | | [place] [address] | + + + | Home Phone | | + + + | Preferred Language | Unknown | + + + | Marital Status | | + + + | Gnosticism Affiliation | NRP | + + + [...] [place] | | | | | [address] | | + + + + + Care Team Providers + +------+ + | Care Input Output Clerk Name | Role | Phone | + +------+ + | Carlo Soto MD | PCP | | + +------+ + Encounter Details +--------+--------+ + + + | Date | Type | Department | Care Team | Description | +--------+--------+ + + + | 11/13/ | Travel | | | | | [...] | | 2020 | Visit | | [address] | | | | | | [address] | | | | | | [place], [place] | | | | | | [address] | | | | | | [phone] | | | | | | | | +--------+---------+ + + + | 07/29/ | Office | Ophthalmology | Jeferson Villarreal MD | | | 2020 | Visit | | [address] | | | | | | [address] | | | | | | [place], [place] | | | | | | [address] | | | | | | [phone] | | | | | | | | +--------+---------+ + + + documented as of this encounter Visit Diagnoses Not on filedocumented in this encounter"
--- OUTSIDE RECORDS SUMMARY | ~2020-05-06 | XMS | Encounter Summary ---
Demographics + + + | Address | [address] | | | [place] [address] | + + + | Home Phone | | + + + | Preferred Language | Unknown | + + + | Marital Status | | + + + | Anabaptist Affiliation | NRP | + + + [...] | Andrzej Campos | ECON | [address] [facility] | | | | | [place] | | | | | [address] | | + + + + + Care Team Providers + +------+ + | Care Retail Parts Pro Name | Role | Phone | + [...] | | 2020 | Visit | | [address] | | | | | | [address] | | | | | | [place], [place] | | | | | | [address] | | | | | | [phone] | | | | | | | | +--------+---------+ + + + | 07/29/ | Office | Ophthalmology | Jeferson Villarreal MD | | | 2020 | Visit | | [address] | | | | | | [address] | | | | | | [place], [place] | | | | | | [address] | | | | | | [phone] | | | | | | | | +--------+---------+ + + + documented as of this encounter Visit Diagnoses Not on filedocumented in this encounter"
--- OUTSIDE RECORDS SUMMARY | ~2020-05-06 | XMS | Encounter Summary ---
Demographics + + + | Address | [address] | | | [place] [address] | + + + | Home Phone | | + + + | Preferred Language | Unknown | + + + | Marital Status | | + + + | Baptist Affiliation | NRP | + + + | Race | White | + + + | Ethnic Group | Not or | + + + Author + + + | Author | [facility] | + + + | Organization | [facility] | + + + | Address | Unknown | + + + | Phone | Unavailable | + + + Support + + + + + | Name | Relationship | Address | Phone | + + + + + | Andrzej Campos | ECON | [address] [facility] | | | | | [place] | | | | | [address] | | + + + + + Care Team Providers + +------+ + | Care Newsagent Name | Role | Phone | + [...] | | | | | | | [place], [place] | | | | | | | [address] | | | | | | | Phone: | | | | | | | [phone] | | | | | | | Fax: | | | | | | | [phone] | +--------+--------+ + + + + Encounter Details +--------+---------+ + + + | Date | Type | Department | Care Team | Description | +--------+---------+ + + + | 06/27/ | Office | [facility] | Stefani, Miller T, | Exudative | | 2019 | Visit | [facility] | [address] | age-related macular | | | | Alex [address] | [address] | degeneration of both | | | | [facility] | [place], [place] | eyes with active | | | | [facility] [place], | [address]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 | | | | [place] [address] | [phone] | neovascularization | | | | [phone] | | ([facility]) (Primary Dx) | +--------+---------+ + + [...] documented as of this encounter Progress Notes Miller Ko MD - 06/27/2019 1:20 PM PDTFormatting of this note might be different fr om the original. [facility] Progress Note 06/27/2019 Assessment & Plan: 78 y.o. 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 - Call for decreased vision, increased distortion, increased pain, new floaters or flashing lights Chief Complaint: Follow-up visit AMD - Age-related macular degeneration HPI (Edited by physician):Patient states that her vision is stable. No new floaters, distor tions, or flashes of light. Ocular Meds: Combigan BID, OU Current Outpatient Medications (Ophthalmic Medications) Medication Sig [...] by mouth o nce daily. [facility] Capsules Examination: See Ophthalmology Module Attestations: The theater technician, 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, is responsible for performing the f ollowing sections: RFV, ROS, PMH, PSH, SocHx, FH, Med list, Base Ophth Exam. The attending physician is responsible for the entire content of the note and has personall y performed the HPI and the physical examination MILLER KO MD documented in this e ncounter Plan of Treatment +--------+---------+ + + + | Date | Type | Specialty | Care Team | Description | +--------+---------+ + + + | 06/17/ | Office | Ophthalmology | Jeferson Villarreal MD | | | 2019 | Visit | | [address] | | | | | | [address] | | | | | | [place], [place] | | | | | | [address] | | | | | | [phone] | | | | | | | | +--------+---------+ + + + | 07/29/ | Office | Ophthalmology | Jeferson Villarreal MD | | | 2020 | Visit | | [address] | | | | | | [address] | | | | | | [place], [place] | | | | | | [address] | | | | | | [phone] | | | | | | | | +--------+---------+ + + + documented as of this encounter Procedures + +--------+ + + + | Procedure Name | Priori | Date/Time | Associated Diagnosis | Comments | | | ty | | | | + +--------+ + + + | EYLEA INJ - OS - | Routin | 06/27/2019 | Exudative | Results for this | | LEFT EYE | e | 2:21 PM | age-related macular | procedure are in the | | | | PDT | degeneration of both | results section. | | | | | eyes with active | | | | |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 | | | | | | neovascularization | | | | | | ([facility]) | | + +--------+ + + + | OCT, RETINA | Routin | 06/27/2019 | Exudative | Results for this | | | e | 2:01 PM | age-related macular | procedure are [...] EYLEA INJECTION - OS - LEFT EYE (06/27/2019 2:21 PM PDT) + + + | Narrative [...] aflibercept 2 mg/0.05 mL | | | [facility]: 40399-213-55 | | | Lot: [id number] | | | Expiration Date: 03/05/2020 | | | Route: intravitreal | | [...] | | + + + OCT, RETINA (06/27/2019 2:01 PM PDT) + + + | Narrative | Performed At | + + + | Junior Php Developer | [facility] | | DocumentationRight EyeCentral macular thickness: 269 Left | [facility] | | EyeCentral macular thickness: 275 Provider DocumentationRight | | | EyeContour: no central thickening, central atrophy Fluid and | | | related findings: no fluid, unchanged Retinal findings: | | | Subretinal scar Left EyeContour: no central thickening Fluid and | | | related findings: better Retinal findings: Subretinal scar | | | | | | | | |Provider Documentation | | |Right Eye | | |Contour: no central thickening, central atrophy | | |Fluid and related findings: no fluid, unchanged | | |Retinal findings: Subretinal scar | | | | | | | | |Left Eye | | |Contour: no central thickening | | |Fluid and related findings: better | | |Retinal findings: Subretinal scar | | + + + + + + + + | Performing | Address | City/State/Zipcode | Phone Number | | Organization | | | | + + + + + | [facility] | [address] | [place] [address] | | | [facility] | Kristy. | [...] + | aflibercept intravitreal | Given | 06/27/20 | 2 mg | | Left Eye | | injection 2 mg 2 mg, | | 19 2:21 | | | | | intravitreal, ONCE PRN (IPROC), 1 | | PM PDT | | | | | dose, Starting Cydney 06/27/19 at | | | | | | | 1421, Until Mon06/27/19 at 1421 | | | | | | + +--------+ +------+------+ + +---+---+ | | | +---+---+ documented in this encounter"
--- OUTSIDE RECORDS SUMMARY | ~2020-05-06 | XMS | Encounter Summary ---
Demographics + + + | Address | [address] | | | [place] [address] | + + + | Home Phone | | + + + | Preferred Language | Unknown | + + + | Marital Status | | + + + | Lutheran Affiliation | NRP | + + + [...] | Andrzej Campos | ECON | [address] [facility] | | | | | [place] | | | | | [address] | | + + + + + Care Team Providers + +------+ + | Care Supervisor Stripping Name | Role | Phone | + +------+ + | Carlo Soto MD | PCP | | + +------+ + Encounter Details +--------+ + + + + | Date | Type | Department | Care Team | Description | +--------+ + + + + | 04/26/ | Document-Sc | UNKNOWN DEPARTMENT | Unknown . | | | 2016 | anned | [address] | | | | | | [address] | | | | | | [place] | | | | | | [address] | | | +--------+ + + + [...] [place] | | | | | | [address] | | | | | | [phone] | | | | | | | | +--------+---------+ + + + | 07/29/ | Office | Ophthalmology | Jeferson Villarreal MD | | | 2019 | Visit | | [address] | | | | | | [address] | | | | | | [place], [place] | | | | | | [address] | | | | | | [phone] | | | | | | | | +--------+---------+ + + + documented as of this encounter Visit Diagnoses Not on filedocumented in this encounter"
--- OUTSIDE RECORDS SUMMARY | ~2020-05-06 | XMS | Clinical Summary ---
Demographics + + + | Address | [address] | | | [place] [address] | + + + | Home Phone | | + + + | Preferred Language | Unknown | + + + | Marital Status | | + + + | Baptist Affiliation | NRP | + + + | Race | White | + + + | Ethnic Group | Not or | + + + Author + + + | Author | [facility] | + + + | Organization | [facility] | + + + | Address | Unknown | + + + | Phone | Unavailable | + + + Support + + + + + | Name | Relationship | Address | Phone | + + + + + | Andrzej Campos | ECON | [address] [facility] | | | | | [place] | | | | | [address] | | + + + + + Care Team Providers + +------+ + | Care Scientific Database Curator Name | Role | Phone | + +------+ + | Carlo Soto MD | PCP | | + +------+ + Source Comments AMOL is fully live on both EpicCare Ambulatory and EpicCare InPatient.[facility] Allergies + + + + + + | Active Allergy | Reactions | Severity | Noted | Comments | | | | | Date | | + + + + + + | Cephalexin | Rash | Low | 10/28/20 | | | | | | 15 | | + + + + + + | Calcitonin ([place]) | Rash | | 01/08/20 | | | | | | 16 | | + + + + + + | Red Dye | Hives | | 10/28/20 | | | | | | 15 | | + + + + + + | Cetirizine Hcl | Facial Swelling | | 03/16/20 | | | | | | 16 | | + + + + + + Medications + + + +---------+------+------+-------+ | Medication | Sig | Dispensed | Refills | Star | End | Statu | | | | | | t | Date | s | | | | | | Date | | | + + + +---------+------+------+-------+ | metFORMIN 500 mg | Take by mouth. | | 0 | | | Activ | | oral tablet | | | | | | e | + + + +---------+------+------+-------+ | levothyroxine 75 | | | 0 | 10/0 | | Activ | | mcg oral tablet | | | | 5/20 | | e | | | | | | 15 | | | + + + +---------+------+------+-------+ | diclofenac 50 mg | Take 50 mg by mouth | | 0 | | | Activ | | oral tablet | two times daily. | | | | | e | + + + +---------+------+------+-------+ | fluticasone 110 | Inhale 1 puff by | | 0 | | | Activ | | mcg/actuation | mouth as needed. | | | | | e | | inhalation HFA | | | | | | | | aerosol inhaler | | | | | | | + + + +---------+------+------+-------+ | diphenhydrAMINE 25 | Take 25 mg by mouth | | 0 | | | Activ | | mg oral capsule | as needed. | | | | | e | + + + +---------+------+------+-------+ | DOXYLAMINE | Take by mouth as | | 0 | | | Activ | | SUCCINATE ORAL | needed. | | | | | e | + + + +---------+------+------+-------+ | MULTIVITAMIN ORAL | Take by mouth. | | 0 | | | Activ | | | | | | | | e | + + + +---------+------+------+-------+ | CHLORPHENIRAMINE | Take by mouth as | | 0 | | | Activ | | MALEATE | needed. | | | | | e | | (CHLOR-TRIMETON | | | | | | | | ORAL) | | | | | | | + + + +---------+------+------+-------+ | | Instill in eye as | | 0 | | | Activ | | CARBOXYMETHYLCELL/HY | needed. | | | | | e | | PROMELLOSE (GENTEAL | | | | | | | | GEL OPHT) | | | | | | | + + + +---------+------+------+-------+ | VIT A/C/E | Take 1 tablet by | | 0 | | | Activ | | AC/ZNOX/CUPRIC OXIDE | mouth once daily. | | | | | e | | (EYE VITAMIN AND | [facility] Capsules | | | | | | | MINERALS ORAL) | | | | | | | + + + +---------+------+------+-------+ | RANITIDINE HCL | Take by mouth once | | 0 | | | Activ | | (ZANTAC ORAL) | daily at bedtime. | | | | | e | + + + +---------+------+------+-------+ | PROPYLENE GLYCOL | Instill in eye as | | 0 | | | Activ | | (SYSTANE BALANCE | needed (BID to QID | | | | | e | | OPHT) | daily). | | | | | | + + + +---------+------+------+-------+ | atorvastatin 10 mg | | | 0 | 07/1 | | Activ | | oral tablet | | | | 0/20 | | e | | | | | | 17 | | | + + + +---------+------+------+-------+ | COMBIGAN 0.2-0.5 % | Instill into both | | 3 | 07/0 | | Activ | | ophthalmic drops | eyes two times | | | 5/20 | | e | | | daily. | | | 17 | | | + + + +---------+------+------+-------+ | lisinopriL 10 mg | | | 0 | 02/1 | | Activ | | oral tablet | | | | 8/20 | | e | | | | | | 20 | | | + + + +---------+------+------+-------+ | losartan 25 mg | Take 1 tablet by | | 0 | 05/0 | | Activ | | oral tablet | mouth two times | | | 11/25 | | e | | | daily. | | | 20 | | | + + + +---------+------+------+-------+ + + +-------+ +------+------+-------+ | Hospital, Clinic, or | Ordered | Route | Frequency | Star | End | Statu | | Other Facility | Dose | | | t | Date | s | | Administered | | | | Date | | | | Medication | | | | | | | + + +-------+ +------+------+-------+ | aflibercept | 2 mg | vtre | ONCE PRN (IPROC) | 04/07 | 04/07 | Ended | | intravitreal | | | | / | 03/25 | | | injection 2 | | | | 20 | 20 | | | mgIndications: | | | | | | | | Exudative | | | | | | | | age-related macular | | | | | | | | degeneration of left | | | | | | | | eye with active | | | | | | |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 | | | | | | | | neovascularization | | | | | | | | ([facility]) | | | | | | | + + +-------+ +------+------+-------+ Active Problems + + + | Problem | Noted Date | + + + | Peripheral corneal degeneration of both eyes | 07/17/2019 | + + + + + | Last Assessment & Plan: Patient noted vertical white line on | | peripheral cornea OS about 1 week after injection last month. It | | was associated with 1 day of pain. Given appearance and prior | | notes showing interpalpebral limbal corneal thinning/opacity, | | this is not likely new but incidentally noted. Asymptomatic | | today. 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 less | | likely band K, PUK).Discussed with patient in | | detail.-Reassurance-ATs prn-Return if any return of | | pain-Otherwise can continue routine follow-up and treatment with | | Dr. 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 Increaased fluid while not coming in during Covid, no | | heme, now resolved fluid after 4WWet/GA OD with resolved SRF, no | | recurrencePARQ Eylea OSObserve OD | |PARQ Eylea OS | |Observe OD | + + + + + | Primary open angle glaucoma of both eyes, moderate stage | 01/08/2016 | + + + | Cataract, nuclear sclerotic, both eyes | 01/08/2016 | + + + | Bilateral ocular hypertension | 01/08/2016 | + + + | Bone lesion | 10/19/2015 | + + + Encounters +--------+---------+ + + + | Date | Type | Specialty | Care Team | Description | +--------+---------+ + + + | 04/29/ | Office | Ophthalmology | Jeferson Villarreal MD | Exudative | | 2020 | Visit | | | age-related macular | | | | | | degeneration of left | | | | | | eye with active | | | | |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 | | | | | | neovascularization | | | | | | ([facility]); Exudative | | | | | | age-related macular | | | | | | degeneration of both | | | | | | eyes with active | | | | |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 | | | | | | neovascularization | | | | | | ([facility]) | +--------+---------+ + + + | 04/29/ | Travel | | | | | 2019 | | | | | +--------+---------+ + + + | 04/01/ | Office | Ophthalmology | Jeferson Villarreal MD | Exudative | | 2019 | Visit | | | age-related macular | | | | | | degeneration of left | | | | | | eye with active | | | | |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 | | | | | | neovascularization | | | | | | ([facility]); Exudative | | | | | | age-related macular | | | | | | degeneration of both | | | | | | eyes with active | | | | |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 | | | | | | neovascularization | | | | | | ([facility]) | +--------+---------+ + + + | 04/01/ | Travel | | | | | 2019 | | | | | +--------+---------+ + + + from Last 3 Months Family History + + +------+ + | Medical History | Relation | Name | Comments | + + +------+ + | Heart Disease | Brother | | | + + +------+ + | Heart Disease | Father | | | + + +------+ + | Macular degeneration | Father | | | + + +------+ + | Heart Disease | Mother | | | + + +------+ + | Cancer | Neg Hx | | | + + +------+ + + +------+--------+ + | Relation | Name | Status | Comments | + +------+--------+ + | Brother | | | | + +------+--------+ + | Father | | | | + +------+--------+ + | Mother | | | | + +------+--------+ + Social History + +-------+ +--------+------+ | [...] in contact | No / Unsure | 04/29/2020 2:31 PM | | with someone who was confirmed or | | PDT | | suspected to have Coronavirus / COVID-19? | | | + + + + Last Filed Vital Signs [...] + + + + Plan of Treatment +--------+---------+ + + + | Date | Type | Specialty | Care Team | Description | +--------+---------+ + + + | 06/17/ | Office | Ophthalmology | Jeferson Villarreal MD | | | 2019 | Visit | | [address] | | | | | | [address] | | | | | | [place], [place] | | | | | | [address] | | | | | | [phone] | | | | | | | | +--------+---------+ + + + | 07/29/ | Office | Ophthalmology | Jeferson Villarreal MD | | | 2020 | Visit | | [address] | | | | | | [address] | | | | | | [place], [place] | | | | | | [address] | | | | | | [phone] | | | | | | | | +--------+---------+ + + + + + + + + | Health Maintenance | Due Date | Last Done | Comments | + + + + + | Pneumococcal | | | | | vaccination (1 of 2 | 6 | | | | - PCV13) | | | | + + + + + | Influenza (Flu) | | 07/28/2018, 08/11/2017, | | | vaccination (#1) | 0 | 09/02/2016, Additional history | | | | | exists | | + + + + + Procedures + +--------+ + + + | Procedure Name | Priori | Date/Time | Associated Diagnosis | Comments | | | ty | | | | + +--------+ + + + | EYLEA INJ - OS - | Routin | 04/30/2020 | Exudative | Results for this | | LEFT EYE | e | 8:40 PM | age-related macular | procedure are in the | | | | PDT | degeneration of left | results section. | | | | | eye with active | | | | |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 | | | | | | neovascularization | | | | | | (HCC) | | + +--------+ + + + | OCT, RETINA | Routin | 04/29/2020 | Exudative | Results for this | | | e | 3:56 PM | age-related macular | procedure are [...] INJ - OS - | Routin | 04/01/2020 | Exudative | Results for this | [...] + | OCT, RETINA | Routin | 04/01/2020 | Exudative | Results for this | | | e | 11:32 AM | age-related macular | procedure are in the | | | | PDT | degeneration of left | results section. | | | | | eye with active | | | | |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 | | | | | | neovascularization | | | | | | (HCC) | | + +--------+ + + + from Last 3 Months Results EYLEA INJ - OS - LEFT EYE (04/30/2020 8:40 PM PDT)Only the most recent of 2 results within the time period is included. + + + | Narrative | Performed [...] | 2 mg aflibercept 2 mg/0.05 mL syringe | | | [facility]: 15714-896-02, Lot: [id number], Expiration date: 09/05/2020 | | | Route: intravitreal, Site: Left [...] | | + + + OCT, RETINA (04/29/2020 3:56 PM PDT)Only the most recent of 2 results within the time kai od is included. + + + | Narrative | Performed At | + + + | [facility] | [facility] | | DocumentationRight EyeQuality: [...] | + + + + + | [facility] | [address] | [place] [address] | | | INSTITUTE | [address] | | | + + + + + from Last 3 Months Insurance + +--------+ +--------+ + +--------+ | Payer | Benefi | Subscriber | Effect | Phone | Address | Type | | | t Plan | ID | yareli | | | | | | / | | Dates | | | | | | Group | | | | | | + +--------+ +--------+ + +--------+ | MEDICARE | MEDICA | xxxxxxxxxxx | | [phone] | [address] | [address] | | | RE A & | | [address] | [address] | [address] | re | | | B | | esent | | [place] | | | | | | | | [address] | | + +--------+ +--------+ + +--------+ | COMMERCIAL | INDIVI | [phone] | | | | Indemn | | INDIVIDUAL | DUAL | | 012-Pr | | | ity | | | COMMER | | esent | | | | | | CIAL | | | | | | + +--------+ +--------+ + +--------+ + +--------+ +--------+ + + | Guarantor Name | Accoun | Relation to | Date | Phone | Billing Address | | | t Type | Patient | of | | | | | | | | | | + +--------+ +--------+ + + | Tonya Suresh | Person | Self | [birth year] | [address] | | | al/Fam | | 1940 | [phone] | [place] [address] | | | [place] | | | 4 (Home) | | + +--------+ +--------+ + +
--- OUTSIDE RECORDS SUMMARY | ~2020-05-06 | XMS | Encounter Summary ---
Demographics + + + | Address | [address] | | | [place] [address] | + + + | Home Phone | | + + + | Preferred Language | Unknown | + + + | Marital Status | | + + + | Temple Affiliation | NRP | + + + | Race | White | + + + | Ethnic Group | Not or | + + + Author + + + | Author | [facility] | + + + | Organization | [facility] | + + + | [...] [place] | | | | | [address] | | + + + + + Care Team Providers + +------+ + | Care Wheel Adjuster Name | Role | Phone | + [...] | | | | | | | [place], [place] | | | | | | | [address] | | | | | | | Phone: | | | | | | | [phone] | | | | | | | Fax: | | | | | | | [phone] | +--------+--------+ + + + + Encounter Details +--------+---------+ + + + | Date | Type | Department | Care Team | Description | +--------+---------+ + + + | 09/18/ | Office | [facility] | Jeferson Villarreal MD | Nonexudative | | 2019 | Visit | [facility] | [address] | age-related macular | | | | Alex [address] | [address] | degeneration, | | | | [facility] | [place], [place] | bilateral, | | | | Clinic [place], | [address] | intermediate dry | | | | [place] [address] | [phone] | stage; Exudative | | | | [phone] | | age-related macular | | | [...] this encounter Patient Instructions Patient Instructions Jeferson Villareral MD - 09/18/2019 1:15 PM PSTReturn before scheduled vi sit with decreasing vision, distortion, or new shower of floaters. documented in this encounter Progress Notes Jeferson Villarreal MD - 09/18/2019 1:15 PM PST [facility] Progress Note 09/18/2019 Assessment & Plan: 79 [...] [address] | | | | | | [facility] [place] | | | | | | [address] | | | | | | [phone] | | | | | | | | +--------+---------+ + + + | 07/29/ | Office | Ophthalmology | Jeferson Villarreal MD | | | 2020 | Visit | | [address] | | | | | | [address] | | | | | | [facility] [place] | | | | | | [address] | | | | | | [phone] | | | | | | | [...] aflibercept 2 mg/0.05 mL | | | [facility]: 33497-135-42, Lot: [id number], Expiration date: 08/05/2020 | | | Route: [...] Performed At | + + + | Tc Operator | [facility] | | DocumentationRight [...] [facility] | [address] | [place] [address] | | | [place] | Kristy. | [...]
--- OUTSIDE RECORDS SUMMARY | ~2020-05-06 | XMS | Encounter Summary ---
Demographics + + + | Address | [address] | | | [place] [address] | + + + | Home Phone | | + + + | Preferred Language | Unknown | + + + | Marital Status | | + + + | Mosque Affiliation | NRP | + + + | Race | White | + + + | Ethnic Group | Not or | + + + Author + + + | Author | [facility] | + + + | Organization | [facility] | + + + | Address | Unknown | + + + | Phone | Unavailable | + + + Support + + + + + | Name | Relationship | Address | Phone | + + + + + | Andrzej Campos | ECON | [address] [facility] | | | | | [place] | | | | | [address] | | + + + + + Care Team Providers + +------+ + | Care Group Chief Operator Name | Role | Phone | [...] | | | | | | | [address] | | | | | | | [address] | | | | | | | [place], [place] | | | | | | | [address] | | | | | | | Phone: | | | | | | | [phone] | | | | | | | Fax: | | | | | | | [phone] | +--------+--------+ + + + + Encounter Details +--------+---------+ + + + | Date | Type | Department | Care Team | Description | +--------+---------+ + + + | 11/14/ | Office | [facility] | Jeferson Villarreal MD | Nonexudative | | 2019 | Visit | [place] [facility] | [address] | age-related macular | | | | Alex [facility] | [address] | degeneration, | | | | [facility] | [place], [place] | bilateral, | | | | [facility] [place], | [address] | intermediate dry | | | | [place] [address] | [phone] | stage; Exudative | | | | [phone] | | age-related macular | | | [...] AM PST [facility] Progress Note 11/14/2018 Assessment & Plan: [...] Hx Examination: See Ophthalmology Module 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 [place] [place] | | | | | | [address] | | | | | | [phone] | | | | | | | [...] | [facility]: [id number] | | | Lot: [id number] | | | Expiration Date: 01/13/2019 | [...] Performed At | + + + | Profile Mill Operator [employer] | [facility] | | DocumentationRight EyeCentral [...] [facility] | [address] | [place] [address] | | | [place] | Kristy. | [...]
--- OUTSIDE RECORDS SUMMARY | ~2020-05-06 | XMS | Encounter Summary ---
Demographics + + + | Address | [address] | | | [place] [address] | + + + | Home Phone | | + + + | Preferred Language | Unknown | + + + | Marital Status | | + + + | Faith Affiliation | NRP | + + + | Race | White | + + + | Ethnic Group | Not or | + + + Author + + + | Author | [facility] | + + + | Organization | [facility] | + + + [...] [place] | | | | | [address] | | + + + + + Care Team Providers + +------+ + | Care Vapor Coater Name | Role | Phone | + [...] | | | | | | | [address] | | | | | | | [address] | | [address] | | | | | | | [place], [place] | | | | | | | [address] | | | | | | | Phone: | | | | | | | [phone] | | | | | | | Fax: | | | | | | | [phone] | +--------+--------+ + + + + Encounter Details +--------+---------+ + + + | Date | Type | Department | Care Team | Description | +--------+---------+ + + + | 08/29/ | Office | [facility] | Horace Tan MD | Exudative | | 2018 | Visit | [facility] | [address] | age-related macular | | | | Alex 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 [...] [address] | | | | | | [place], [place] | | | | | | [address] | | | | | | [phone] | | | | | | | | +--------+---------+ + + + | 07/29/ | Office | Ophthalmology | Horace Tan MD | | | 2020 | Visit | | [address] | | | | | | [address] | | | | | | [place], [place] | | | | | | [address] | | | | | | [phone] | | | | | | | [...] | | | | | ([facility]) | | + +--------+ + + [...] bevacizumab 1.25 mg/0.05 mL | | | [facility]: [id number] | | | Lot: [id number]) | | | Expiration Date: 10/08/2018 | [...] bevacizumab 1.25 mg/0.05 mL | | | [facility]: [id number] | | | Lot: [id number]) | | | Expiration Date: 10/08/2018 | [...] Performed At | + + + | Sign Carpenter | [facility] | | DocumentationRight EyeCentral [...] [facility] | [address] | [place] [address] | | | INSTITUTE | Kristy. | [...]
--- OUTSIDE RECORDS SUMMARY | ~2020-05-06 | XMS | Clinical Summary ---
Demographics + + + | Address | [address] | | | [place] [address] | + + + | Home Phone | | + + + | Preferred Language | Unknown | + + + | Marital Status | | + + + | Oriental Orthodox Affiliation | NRP | + + + [...] [place] | | | | | [address] | | + + + + + Care Team Providers + +------+ + | Care Conservation Science Teacher Name | Role | Phone | + +------+ + | Carlo Soto MD | PCP | | + +------+ + Source Comments AM[facility] is fully live on both EpicCare Ambulatory and EpicCare InPatient.[facility] Allergies + + + + + + | Active Allergy | Reactions | Severity | Noted | Comments | | | | | Date | | + + + + + + | Cephalexin | Rash | Low | 10/28/20 | | | | | | 15 | | + + + + + + | Calcitonin ([place]) | Rash | | 01/08/20 | | [...] | | | | | | | ([facility]) | | | | | | | [...] neovascularization | | | | | | ([facility]); Exudative | | | | | | age-related macular | | | | | | degeneration of both | | | | | | eyes with active | | | | |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 | | | | | | neovascularization | | | | | | ([facility]) | +--------+---------+ + + + | 04/29/ [...] neovascularization | | | | | | ([facility]); Exudative | | | | | | age-related macular | | | | | | degeneration of both | | | | | | eyes with active | | | | |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 | | | | | | neovascularization | | | | | | ([facility]) | +--------+---------+ + + + | 04/01/ [...] [address] | | | | | | [place], [place] | | | | | | [address] | | | | | | [phone] | | | | | | | | +--------+---------+ + + + | 07/29/ | Office | Ophthalmology | Jeferson Villarreal MD | | | 2020 | Visit | | [address] | | | | | | [address] | | | | | | [place], [place] | | | | | | [address] | | | | | | [phone] | | | | | | | [...] 2 mg/0.05 mL syringe | | | [facility]: [id number], Lot: [id number], Expiration date: 09/05/2020 | | | Route: [...] Performed At | + + + | Door Clamper | [facility] | | DocumentationRight EyeQuality: [...] [facility] | [address] | [place] [address] | | | INSTITUTE | [address] | [...] MEDICARE | MEDICA | xxxxxxxxxxx | | [phone] | [address] | [address] | | | RE A & | | [address] | [address] | [address] | re | | | B | | esent | | [place] | | | | | | | | [address] | | + +--------+ +--------+ + +--------+ [...] | | al/Fam | | 1940 | [phone] | [place] [address] | | | [place]lin | | | 4 (Home) | | + +--------+ +--------+ + +
--- OUTSIDE RECORDS SUMMARY | ~2020-05-06 | XMS | Encounter Summary ---
Demographics + + + | Address | [address] | | | [place] [address] | + + + | Home Phone | | + + + | Preferred Language | Unknown | + + + | Marital Status | | + + + | Gnosticism Affiliation | NRP | + + + | Race | White | + + + | Ethnic Group | Not or | + + + Author + + + | Author | [facility] | + + + | Organization | [facility] | + + + | Address | Unknown | + + + | Phone | Unavailable | + + + Support + + + + + | Name | Relationship | Address | Phone | + + + + + | Andzrej Campos | ECON | [address] [facility] | | | | | [place] | | | | | [address] | | + + + + + Care Team Providers + +------+ + | Care Fiberglass Ski Maker Name | Role | Phone | [...] | | | [address] | [place], [place] | | | | | Mailcode: [id number] | [address] | | | | | [facility] | [phone] | | | | | [place], [place] | | | | | | [address] | | | | | | [phone] | | | +--------+---------+ + + + [...] ut stopped 8 years ago. Lives in [place]. 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 General: Alert, awake, and oriented x3. No [...] [address] | | | | | | [place], [place] | | | | | | [address] | | | | | | [phone] | | | | | | | | +--------+---------+ + + + | 07/29/ | Office | Ophthalmology | Jeferson Villarreal MD | | | 2019 | Visit | | [address] | | | | | | [address] | | | | | | [place], [place] | | | | | | [address] | | | | | | [phone] | | | | | | | [...]
--- OUTSIDE RECORDS SUMMARY | ~2020-05-06 | XMS | Encounter Summary ---
Demographics + + + | Address | [address] | | | [place] [address] | + + + | Home Phone [...] [place] | | | | | [address] | | + + + + + Care Team Providers + +------+ + | Care Bank Courier Name | Role | Phone | + [...] | | | | | | | [address] | | | | | | | [address] | | | | [address] | | | | | | | [place], [place] | | | | | | | [address] | | | | | | | Phone: | | | | | | | [phone] | | | | | | | Fax: | | | | | | | [phone] | +--------+--------+ + + + + Encounter Details +--------+---------+ + + + | Date | Type | Department | Care Team | Description | +--------+---------+ + + + | 07/13/ | Office | [facility] | Horace Tan MD | Bilateral | | 2016 | Visit | [facility] | [address] | nonexudative | | | | Alex Munoz [facility] | [address] | age-related macular | | | | [facility] | [place], [place] | degeneration | | | | Clinic [place], | [address] | (Primary Dx) | | | | [place] [address] | [phone] | | | | | [phone] | | | +--------+---------+ + + + [...] time!) Fix your gaze on the black huslia in the center of the grid. Use [...] PM PDT [facility] Progress Note 07/13/2016 Assessment & [...] Cancer. 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
--- OUTSIDE RECORDS SUMMARY | ~2020-05-06 | XMS | Encounter Summary ---
Demographics + + + | Address | [address] | | | [place] [address] | + + + | Home Phone | | + + + | Preferred Language | Unknown | + + + | Marital Status | | + + + | Protestant Affiliation | NRP | + + + [...] [place] | | | | | [address] | | + + + + + Care Team Providers + +------+ + | Care Strickler Attendant Name | Role | Phone | + [...] | | | | | | | [place], [place] | | | | | | | [address] | | | | | | | Phone: | | | | | | | [phone] | | | | | | | Fax: | | | | | | | [phone] | +--------+--------+ + + + + Encounter Details +--------+---------+ + + + | Date | Type | Department | Care Team | Description | +--------+---------+ + + + | 05/01/ | Office | [facility] | Jeferson Villarreal MD | Nonexudative | | 2019 | Visit | [place] [facility] | [address] | age-related macular | | | | Alex [address] | [address] | degeneration, | | | | [facility] | [place], [place] | bilateral, | | | | Clinic [place], | [address] | intermediate dry | | | | [place] [address] | [phone] | stage; Exudative | | | | [phone] | | age-related macular | | | | | | degeneration of both | | | | | | eyes with active | | | | |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 | | | | | | neovascularization | | | | | | ([facility]) | +--------+---------+ + + + [...] AM PDT [facility] Progress Note 05/01/2019 Assessment & Plan: 78 [...] | Examination: See Ophthalmology Module 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, 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, [...] Blvd | | | | | | [place], [place] | | | | | | [address] | | | | | | [phone] | | | | | | | | +--------+---------+ + + + | 07/29/ | Office | Ophthalmology | Jeferson Villarreal MD | | | 2020 | Visit | | [address] | | | | | [address] | | | | | | [place], [place] | | | | | | [address] | | | | | | [phone] | | | | | | | [...] bevacizumab 1.25 mg/0.05 mL | | | [facility] [place]NOTE 2]: [id number] | | | Lot: [id number] | | | Expiration Date: 05/14/2019 | [...] Performed At | + + + | Head Of Science | [facility] | | DocumentationRight EyeCentral [...] [facility] | [address] | [place] [address] | | | [place] | Kristy. | [...]
--- OUTSIDE RECORDS SUMMARY | ~2020-05-06 | XMS | Encounter Summary ---
Demographics + + + | Address | [address] | | | [place] [address] | + + + | Home Phone | | + + + | Preferred Language | Unknown | + + + | Marital Status | | + + + | Mu-Ism Affiliation | NRP | + + + | Race | White | + + + | Ethnic Group | Not or | + + + Author + + + | Author | [facility] | + + + | Organization | [facility] | + + + | Address | Unknown | + + + | Phone | Unavailable | + + + Support + + + + + | Name | Relationship | Address | Phone | + + + + + | Andrzej Campos | ECON | [address] [facility] | | | | | [place] | | | | | [address] | | + + + + + Care Team Providers + +------+ + | Care Automobile Technician Name | Role | Phone | [...] | | | | | | | [place], [place] | | | | | | | [address] | | | | | | | Phone: | | | | | | | [phone] | | | | | | | Fax: | | | | | | | [phone] | + +--------+ + + + + Encounter Details +--------+---------+ + + + | Date | Type | Department | Care Team | Description | +--------+---------+ + + + | 04/29/ | Office | [facility] | Jeferson Villarreal MD | Exudative | | 2020 | Visit | [place] [facility] | [address] | age-related macular | | | | [place] [address] | [address] | degeneration of left | | | | [facility] | [place], [place] | 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[place], | [address]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 | | | | [place] [address] | [phone] | neovascularization | | | | [phone] | | ([facility]); Exudative | | | | | | age-related macular | | | | | | degeneration of both | | | | | | eyes with active | | | | |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 | | | | | | neovascularization | | | | | | ([facility]) | +--------+---------+ + + + Social History [...] Instructions Patient Instructions Jeferson Villarreal MD - 04/29/2020 2:30 PM PDTReturn before scheduled vi sit with decreasing vision, distortion, or new shower of floaters. documented in this encounter Progress Notes Jeferson Villarreal MD - 04/29/2020 2:30 PM PDT [facility] Progress Note 04/29/2020 Assessment & Plan: 79 y.o. 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 Increaased fluid while not coming in during Covid, no heme, now resolved fluid after 4W Wet/GA OD with resolved SRF, no recurrence PARQ Eylea OS Observe OD Call for decreased vision, increased distortion, increased pain, new floaters or flashing l ights Follow up: Return in about 7 weeks (around 06/17/2020). Chief Complaint: Follow-up visit AMD - Age-related macular degeneration HPI: Patient states that her vision is stable. No new floaters, distortions, or flashes of light. Ocular Meds: Combigan BID, OU Systance Daily, OU No occupation listed. Current Outpatient Medications (Ophthalmic Medications) Medication Sig CARBOXYMETHYLCELL/HYPROMELLOSE (GENTEAL GEL OPHT) Instill in eye as needed. Combigan Instill into both eyes two times daily. [...] puff by mouth as needed. levothyroxine lisinopriL losartan Take 1 tablet by mouth two times daily. metFORMIN Take by mouth. MULTIVITAMIN ORAL Take [...] [address] | | | | | | [place], [place] | | | | | | [address] | | | | | | [phone] | | | | | | | | +--------+---------+ + + + | 07/29/ | Office | Ophthalmology | Jeferson Villarreal MD | | | 2020 | Visit | | [address] | | | | | | [address] | | | | | | [place], [place] | | | | | | [address] | | | | | | [phone] | | | | | | | [...] | | | | | ([facility]) | | + +--------+ + + + [...] | | | | | ([facility]) | | + +--------+ + + + documented in this encounter Results DERRICKA INJ - OS - LEFT EYE (04/30/2020 8:40 PM PDT) + + + | Narrative [...] 2 mg/0.05 mL syringe | | | [facility]: 79748-812-51, Lot: [id number], Expiration date: 09/05/2020 | | | Route: [...] + + OCT, RETINA (04/29/2020 3:56 PM PDT) + + + | Narrative | Performed At | + + + | Group President | [facility] | | DocumentationRight EyeQuality: [...] | + + + + + | [facility] | [address] | [place] [address] | | | INSTITUTE | Kristy. | [...] + | aflibercept intravitreal | Given | 04/30/20 | 2 mg | | Left Eye | | injection 2 mg 2 mg, | | 20 8:40 | | | | | intravitreal, ONCE PRN (IPROC), 1 | | PM PDT | | | | | dose, Starting Cydney 04/30/20 at | | | | | | | 2039, Until Cydney 04/30/20 at 2039 | | | | | | + +--------+ +------+------+ + +---+---+ | | | +---+---+ documented in this encounter"
--- OUTSIDE RECORDS SUMMARY | ~2020-05-06 | XMS | Encounter Summary ---
Demographics + + + | Address | [address] | | | [place] [address] | + + + | Home Phone [...] [place] | | | | | [address] | | + + + + + Care Team Providers + +------+ + | Care Cytogeneticist Name | Role | Phone | + [...] | | 2020 | Visit | | [address] | | | | | | [address] | | | | | | [place], [place] | | | | | | [address] | | | | | | [phone] | | | | | | | | +--------+---------+ + + + | 07/29/ | Office | Ophthalmology | Jeferson Villarreal MD | | | 2020 | Visit | | [address] | | | | | | [address] [place] | | | | | | [place], [place] | | | | | | [address] | | | | | | [phone] | | | | | | | | +--------+---------+ + + + documented as of this encounter Visit Diagnoses Not on filedocumented in this encounter"
--- OUTSIDE RECORDS SUMMARY | ~2020-05-06 | XMS | Encounter Summary ---
Demographics + + + | Address | [address] | | | [place] [address] | + + + | Home Phone [...] [place] | | | | | [address] | | + + + + + Care Team Providers + +------+ + | Care Parking Manager Name | Role | Phone | + +------+ + | Carlo Soto MD | PCP | | + +------+ + Encounter Details +--------+--------+ + + + | Date | Type | Department | Care Team | Description | +--------+--------+ + + + | 05/29/ | Travel | | | | | [...] | | 2020 | Visit | | [address] | | | | | | [address] | | | | | | [place], [place] | | | | | | [address] | | | | | | [phone] | | | | | | | | +--------+---------+ + + + | 07/29/ | Office | Ophthalmology | Jeferson Villarreal MD | | | 2020 | Visit | | [address] | | | | | | [address] | | | | | | [place], [place] | | | | | | [address] | | | | | | [phone] | | | | | | | | +--------+---------+ + + + documented as of this encounter Visit Diagnoses Not on filedocumented in this encounter"
--- OUTSIDE RECORDS SUMMARY | ~2020-05-06 | XMS | Encounter Summary ---
Demographics + + + | Address | [address] | | | [place] [address] | + + + | Home Phone [...] [place] | | | | | [address] | | + + + + + Care Team Providers + +------+ + | Care Instructor Watch Assembly Name | Role | Phone | + +------+ + | Carlo Soto MD | PCP | | + +------+ + Encounter Details +--------+--------+ + + + | Date | Type | Department | Care Team | Description | +--------+--------+ + + + | 04/29/ | Travel [...] [place] | | | | | | [address] | | | | | | [phone] | | | | | | | | +--------+---------+ + + + | 07/29/ | Office | Ophthalmology | Jeferson Villarreal MD | | | 2020 | Visit | | [address] | | | | | | [address] | | | | | | [place], [place] | | | | | | [address] | | | | | | [phone] | | | | | | | | +--------+---------+ + + + documented as of this encounter Visit Diagnoses Not on filedocumented in this encounter"
--- OUTSIDE RECORDS SUMMARY | ~2020-05-06 | XMS | Encounter Summary ---
Demographics + + + | Address | [address] | | | [place] [address] | + + + | Home Phone | | + + + | Preferred Language | Unknown | + + + | Marital Status | | + + + | Confucianist Affiliation | NRP | + + + | Race | White | + + + | Ethnic Group | Not or | + + + Author + + + | Author | [facility] | + + + | Organization | [facility] | + + + | Address | Unknown | + + + | Phone | Unavailable | + + + Support + + + + + | Name | Relationship | Address | Phone | + + + + + | Andrzej Campos | ECON | [address] [facility] | | | | | [place] | | | | | [address] | | + + + + + Care Team Providers + +------+ + | Care Project Analyst Name | Role | Phone | [...] corneal | | 2019 | Visit | [place] | [address] | degeneration of both | | | | Alex [address] | [address] | eyes (Primary Dx) | | | | [place], [place] | [place], [place] | | | | | [address] | [address] | | | | | [phone] | [phone] | | | | | | | [...] Yang MD - 07/17/2019 3:00 PM PDT [facility] [place] Progress Note 07/17/2019 CC: Medical Eye Examination [...] PM. (History) Allergies Allergen Reactions Miacalcin [Calcitonin ([place])] Rash Red Dye Hives Zyrtec [Cetirizine Hcl] [...] No follow-ups on file. 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
--- OUTSIDE RECORDS SUMMARY | ~2020-05-06 | XMS | Encounter Summary ---
Demographics + + + | Address | [address] | | | [place] [address] | + + + | Home Phone | | + + + | Preferred Language | Unknown | + + + | Marital Status | | + + + | Orthodox Affiliation | NRP | + + [...] [facility] | | | | | [place] | | | | | [address] | | + + + + + Care Team Providers + +------+ + | Care Inspector Penetrant Name | Role | Phone | + [...] | | 2020 | Visit | | [address] | | | | | | [address] | | | | | | [place], [place] | | | | | | [address] | | | | | | [phone] | | | | | | | | +--------+---------+ + + + | 07/29/ | Office | Ophthalmology | Jeferson Villarreal MD | | | 2020 | Visit | | [address] | | | | | | [address] | | | | | | [place], [place] | | | | | | [address] | | | | | | [phone] | | | | | | | | +--------+---------+ + + + documented as of this encounter Visit Diagnoses Not on filedocumented in this encounter"
--- OUTSIDE RECORDS SUMMARY | ~2020-05-06 | XMS | Encounter Summary ---
Demographics + + + | Address | [address] | | | [place] [address] | + + + | Home Phone | | + + + | Preferred Language | Unknown | + + + | Marital Status | | + + + | Jewish Affiliation | NRP | + + + [...] Andrzej Campos | ECON | [address] [facility] | | | | | [place] | | | | | [address] | | + + + + + Care Team Providers + +------+ + | Care Flag Car Driver Name | Role | Phone | [...] | | | | | | | [place], [place] | | | | | | | [address] | | | | | | | Phone: | | | | | | | [phone] | | | | | | | Fax: | | | | | | | [phone] | +--------+--------+ + + + + Encounter Details +--------+---------+ + + + | Date | Type | Department | Care Team | Description | +--------+---------+ + + + | 07/31/ | Office | [facility] | Jeferson Villarreal MD | Nonexudative | | 2019 | Visit | [employer] [facility] | [address] | age-related macular | | | | Alex [address] | [address] | degeneration, | | | | [facility] | [place], [place] | bilateral, | | | | Clinic [place], | [address] | intermediate dry | | | | [place] [address] | [phone] | stage; Exudative | | | | [phone] | | age-related macular | | | [...] PM PDT [facility] Progress Note 07/31/2019 Assessment & Plan: [address] | | | | | | [facility], [place] | | | | | | [address] | | | | | | [phone] | | | | | | | | +--------+---------+ + + + | 07/29/ | Office | Ophthalmology | Jeferson Villarreal MD | | | 2019 | Visit | | [address] | | | | | | [address] | | | | | | [facility], [place] | | | | | | [address] | | | | | | [phone] | | | | | | | [...] aflibercept 2 mg/0.05 mL | | | [facility]: 10176-216-10 | | | Lot: [id number] | | | Expiration Date: 06/05/2019 | [...] Performed At | + + + | Scale Technician | [facility] | | DocumentationRight [...] [facility] | [address] | [place] [address] | | | [place] | Kristy. | [...]
--- OUTSIDE RECORDS SUMMARY | ~2020-05-06 | XMS | Encounter Summary ---
Demographics + + + | Address | [address] | | | [place] [address] | + + + | Home Phone | | + + + | Preferred Language | Unknown | + + + | Marital Status | | + + + | Yarsani Affiliation | NRP | + + + | Race | White | + + + | Ethnic Group | Not or | + + + Author + + + | Author | [facility] | + + + | Organization | [facility] | + + + | Address | Unknown | + + + | Phone | Unavailable | + + + Support + + + + + | Name | Relationship | Address | Phone | + + + + + | Andrzej Campos | ECON | [address] [facility] | | | | | [place] | | | | | [address] | | + + + + + Care Team Providers + +------+ + | Care Barrel Cutter Name | Role | Phone | + +------+ + | Carlo Soto MD | PCP | | + +------+ + Reason for Referral Diagnostic Testing (Routine) +--------+--------+ + + + + | Status | Reason | Specialty | Diagnoses / | Referred By | Referred To | | | | | Procedures | Contact | Contact | +--------+--------+ + + + + | Closed | | Radiology | Diagnoses | Makayla, | Rad Ct Scan | | | | | Bone lesion | Isadora, | [facility] [address] | | | | | Procedures | [address] | [address] | | | | | CT BIOPSY | [place]os | Katelyn CARMICHAEL | | | | | BONE DEEP | [place], [place] | [facility], | | | | | PERC AND | [address] | 10th Floor | | | | | NEEDLE PLCMT | Phone: | [place], [place] | | | | | [place] CT SCAN | [phone] | [address] | | | | | FOR NEEDLE | Fax: | Phone: | | | | | BIOPSY CA | [phone] | [phone] | | | | | BONE | | Fax: | | | | | BIOPSY,TROCA | | [phone] | | | | | R/NEEDLE | | | | | | | DEEP | | | +--------+--------+ + + + + Encounter Details +--------+ + + + + | Date | Type | Department | Care Team | Description | +--------+ + + + + | 10/19/ | Staffing Associate | Orthopaedics at | Isadora Benavides, | Bone lesion (Primary | | 2014 | | [facility] [address] | MD [address] | Dx) | | | | [address] | [facility] [place] | | | | | Mailcode: [id number] | [address] | | | | | [facility] | [phone] | | | | | [place], [place] | | | | | | [address] | | | | | | [phone] | | | +--------+ + + + [...] [address] | | | | | | [place], [place] | | | | | | [address] | | | | | | [phone] | | | | | | | | +--------+---------+ + + + | 07/29/ | Office | Ophthalmology | Jeferson Villarreal MD | | | 2020 | Visit | | [address] | | | | | | [address] | | | | | | [place], [place] | | | | | | [address] | | | | | | [phone] | | | | | | | | +--------+---------+ + + + documented as of this encounter Visit Diagnoses + + | Diagnosis | + + | Bone lesion - Primary Disorder of bone and cartilage, unspecified | + + documented in this encounter"
--- OUTSIDE RECORDS SUMMARY | ~2020-05-06 | XMS | Encounter Summary ---
Demographics + + + | Address | [address] | | | [place] [address] | + + + | Home Phone [...] | Andrzej Campos | ECON | [address] [facility] | | | | | [place] | | | | | [address] | | + + + + + Care Team Providers + +------+ + | Care Police Pilot Name | Role | Phone | + [...] Medication Questions | | 2016 | | [facility] | ,PhD [address] | | | | | at [facility] [address] | [address] [place], [place] | | | | | [facility] Mailcode: [facility] | [address] | | | | | [facility] | [phone] | | | | | and Healing, | | | | | | | | | | | | [place], [place] | | | | | | [address] | | | | | | [phone] | | | +--------+--------+ + + + [...] [address] | | | | | | [place], [place] | | | | | | [address] | | | | | | [phone] | | | | | | | | +--------+---------+ + + + | 07/29/ | Office | Ophthalmology | Jeferson Villarreal MD | | | 2020 | Visit | | [address] | | | | | | [address] | | | | | | [place] | | | | | | [address] | | | | | | [phone] | | | | | | | | +--------+---------+ + + + documented as of this encounter Visit Diagnoses Not on filedocumented in this encounter"
--- OUTSIDE RECORDS SUMMARY | ~2020-05-06 | XMS | Encounter Summary ---
Demographics + + + | Address | [address] | | | [place] [address] | + + + | Home Phone [...] + + | Author | [facility] | + + + | Organization | [facility] | + + + | [...] [place] | | | | | [address] | | + + + + + Care Team Providers + +------+ + | Care Mortgage Advisor Name | Role | Phone | + [...] | | | | | | | [address] | | | | | | [address] | | | | [address] | | | | | | | [place], [place] | | | | | | | [address] | | | | | | | Phone: | | | | | | | [phone] | | | | | | | Fax: | | | | | | | [phone] | +--------+--------+ + + + + Encounter Details +--------+---------+ + + + | Date | Type | Department | Care Team | Description | +--------+---------+ + + + | 03/28/ | Office | [facility] | Horace Tan MD | Exudative | | 2018 | Visit | [place] [facility] | [address] | age-related macular | | | | [facility] [address] | [address] | degeneration of left | | | | [facility] | [place], [place] | 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[place], | [address]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 | | | | [place] [address] | [phone] | neovascularization | | | | [phone] | | ([facility]) (Primary Dx); | | | | | [...] Instructions Patient Instructions Horace Tan MD - 03/28/2018 10:30 AM PDTReturn before scheduled vi sit with decreasing vision or new shower of floaters. documented in this encounter Progress Notes Horace Tan MD - 03/28/2018 10:30 AM PDT [facility] Progress Note 03/28/2018 Assessment & Plan: 77 y.o. 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 Chief Complaint: Follow-up visit HPI: No change in vision observed, new floaters or flashes of light. Distortion OS continue s. 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, 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, [...] Blvd | | | | | | [place], [place] | | | | | | [address] | | | | | | [phone] | | | | | | | | +--------+---------+ + + + | 07/29/ | Office | Ophthalmology | Horace Tan MD | | | 2019 | Visit | | [address] | | | | | [address] | | | | | | [place], [place] | | | | | | [address] | | | | | | [phone] | | | | | | | | +--------+---------+ + + + documented as of this encounter Procedures + +--------+ + + + | Procedure Name | Priori | Date/Time | Associated Diagnosis | Comments | | | ty | | | | + +--------+ + + + | AVASTIN INJ - OS - | Routin | 03/28/2018 | Exudative | Results for this | | LEFT EYE | e | 11:56 AM | age-related macular | procedure are in the | | | | PDT | degeneration of left | results section. | | | | | eye with active | | | | |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 | | | | | | neovascularization | | | | | | (HCC) | | + +--------+ + + + | OCT, RETINA | Routin | 03/28/2018 | Nonexudative | Results for this | | | e | 11:37 AM | age-related macular | procedure are in the | | | | PDT | degeneration, | results section. | | | | | bilateral, | | | | | | intermediate dry | | | | | | stage | | + +--------+ + + + | OCT, RETINA | Routin | 03/28/2018 | Nonexudative | Results for this | | | e | 10:49 AM | age-related macular | procedure are in the | | | | PDT | degeneration, | results section. | | | | | bilateral, | | | | | | intermediate dry | | | | | | stage | | + +--------+ + + + documented in this encounter Results AVASTIN INJECTION - OS - LEFT EYE (03/28/2018 11:56 AM PDT) + + + | Narrative [...] bevacizumab 1.25 mg/0.05 mL | | | [facility]: [id number] | | | Lot: [id number] (28 [id number]) | | | Expiration Date: 04/23/2018 | | | Route: intravitreal | | [...] | | + + + OCT, RETINA (03/28/2018 11:37 AM PDT) + + + | Narrative | Performed At | + + + | Supervisor Network Control Operators | [facility] | | [facility] [...] [facility] | [address] | [place] [address] | | | INSTITUTE | Kristy. | | | + + + + + HEATHER FLORES (03/28/2018 10:49 AM PDT) + + + | Narrative | Performed At | + + + | Supervisor Network Control Operators | [facility] | | [facility] macular thickness: [...] | + + + + + | [facility] | [address] | [place] [address] | | | INSTITUTE | Kristy. | [...] + | bevacizumab (AVASTIN) | Given | 03/28/20 | 1.25 mg | | Left Eye | | intravitreal injection 1.25 mg | | 18 11:56 | | | | | 1.25 mg, ONCE NEEDED, Starting | | AM PDT | | | | | 03/28/18 at 1156, Until Wed | | | | | | | 07/04/18 at 1035 | | | | | | + +--------+ +---------+------+ + +---+---+ | | | +---+---+ documented in this encounter"
--- OUTSIDE RECORDS SUMMARY | ~2020-05-06 | XMS | Encounter Summary ---
Demographics + + + | Address | [address] | | | [place] [address] | + + + | Home Phone | | + + + | Preferred Language | Unknown | + + + | Marital Status | | + + + | Holiness Affiliation | NRP | + + + [...] [place] | | | | | [address] | | + + + + + Care Team Providers + +------+ + | Care Ear Flap Binder Name | Role | Phone | + [...] | | | | | | | [address] | | | | | | | [address] | | | | | | [address] | | | | | | | [place], [place] | | | | | | | [address] | | | | | | | Phone: | | | | | | | [phone] | | | | | | | Fax: | | | | | | | [phone] | +--------+--------+ + + + + Encounter Details +--------+---------+ + + + | Date | Type | Department | Care Team | Description | +--------+---------+ + + + | 05/02/ | Office | [facility] | Horace Tan MD | Nonexudative | | 2018 | Visit | [place] at [facility] | [address] | age-related macular | | | | [facility] | [address] | degeneration, | | | | [facility] | [place], [place] | bilateral, | | | | Clinic [place], | [address] | intermediate dry | | | | [place] [address] | [phone] | stage; Exudative | | | | [phone] | | age-related macular | | | | | | degeneration of left | | | | | | eye with active | | | | |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 | | | | | | neovascularization | | | | | | ([facility]) | +--------+---------+ + + + Social [...] Instructions Patient Instructions Horace Tan MD - 05/02/2018 11:00 AM PDTReturn before scheduled vi sit with decreasing vision or new shower of floaters. documented in this encounter Progress Notes Horace Tan MD - 05/02/2018 11:00 AM PDT [facility] Progress Note 05/02/2018 Assessment & Plan: 77 y.o. 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 Chief Complaint: Follow-up visit HPI: No interval change in vision observed, floaters, flashes of light or new distortion. 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, 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, [...] Blvd | | | | | | [facility], [place] | | | | | | [address] | | | | | | [phone] | | | | | | | | +--------+---------+ + + + | 07/29/ | Office | Ophthalmology | Horace Tan MD | | | 2019 | Visit | | [address] | | | [address] | | | | | | [place], [place] | | | | | | [address] | | | | | | [phone] | | | | | | | | +--------+---------+ + + + documented as of this encounter Procedures + +--------+ + + + | Procedure Name | Priori | Date/Time | Associated Diagnosis | Comments | | | ty | | | | + +--------+ + + + | AVASTIN INJ - OS - | Routin | 05/02/2018 | Exudative | Results for this | | LEFT EYE | e | 12:16 PM | age-related macular | procedure are in the | | | | PDT | degeneration of left | results section. | | | | | eye with active | | | | |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 | | | | | | neovascularization | | | | | | ([facility]) | | + +--------+ + + + | OCT, RETINA | Routin | 05/02/2018 | Nonexudative | Results for this | [...] AVASTIN INJECTION - OS - LEFT EYE (05/02/2018 12:16 PM PDT) + + + | Narrative [...] bevacizumab 1.25 mg/0.05 mL | | | [facility]: [id number] | | | Lot: [id number]([id number]) | | | Expiration Date: 06/19/2018 | | | Route: intravitreal | | | Site: Left Eye | | | | | | Estimated blood loss: none | | | | | | | | | Post Op | | | Post procedure assessment: visual acuity at least count fingers, eye | | | rinsed, patient tolerated procedure well | | + + + OCT, RETINA (05/02/2018 11:32 AM PDT) + + + | Narrative | Performed At | + + + | Health Care Consultant | [facility] | | [facility] [...] + + | [facility] | [address] | [place] [address] | | | [facility] | Kristy. | [...] + | bevacizumab (AVASTIN) | Given | 05/02/20 | 1.25 mg | | Left Eye | | intravitreal injection 1.25 mg | | 18 12:16 | | | | | 1.25 mg, ONCE NEEDED, Starting | | PM PDT | | | | | 05/02/18 at 1216, Until Wed | | | | | | | 07/04/18 at 1048 | | | | | | + +--------+ +---------+------+ + +---+---+ | | | +---+---+ documented in this encounter"
--- OUTSIDE RECORDS SUMMARY | ~2020-05-06 | XMS | Encounter Summary ---
Demographics + + + | Address | [address] | | | [place] [address] | + + + | Home Phone | | + + + | Preferred Language | Unknown | + + + | Marital Status | | + + + | Scientologist Affiliation | NRP | + + + [...] [place] | | | | | [address] | | + + + + + Care Team Providers + +------+ + | Care Casino Dealer Name | Role | Phone | + [...] | | 2020 | Visit | | [address] | | | | | | [address] | | | | | | [place], [place] | | | | | | [address] | | | | | | [phone] | | | | | | | | +--------+---------+ + + + | 07/29/ | Office | Ophthalmology | Jeferson Villarreal MD | | | 2020 | Visit | | [address] | | | | | [address] | | | | | | [place], [place] | | | | | | [address] | | | | | | [phone] | | | | | | | | +--------+---------+ + + + documented as of this encounter Visit Diagnoses Not on filedocumented in this encounter"
--- OUTSIDE RECORDS SUMMARY | ~2020-05-06 | XMS | Encounter Summary ---
Demographics + + + | Address | [address] | | | [place] [address] | + + + | Home Phone [...] [place] | | | | | [address] | | + + + + + Care Team Providers + +------+ + | Care X Ray Technologist Name | Role | Phone | + [...] | | | | | | | [place], [place] | | | | | | | [address] | | | | | | | Phone: | | | | | | | [phone] | | | | | | | Fax: | | | | | | | [phone] | +--------+--------+ + + + + Encounter Details +--------+---------+ + + + | Date | Type | Department | Care Team | Description | +--------+---------+ + + + | 01/30/ | Office | [facility] | Jeferson Villarreal MD | Nonexudative | | 2019 | Visit | [place] [facility] | [address] | age-related macular | | | | Alex [address] | [address] | degeneration, | | | | [facility] | [place], [place] | bilateral, | | | | Clinic [place], | [address] | intermediate dry | | | | [place] [address] | [phone] | stage; Exudative | | | | [phone] | | age-related macular | | | [...] Instructions Patient Instructions Jeferson Villarreal MD - 01/30/2019 10:45 AM PDTReturn before scheduled vi sit with decreasing vision or new shower of floaters. documented in this encounter Progress Notes Jeferson Villarreal MD - 01/30/2019 10:45 AM PDT [facility] Progress Note 01/30/2019 Assessment & Plan: 78 y.o. female Exudative age-related macular degeneration of both eyes with active choroidal neovasculariz ation (HCC) Hx vitelliform / basal laminar drusen Wet AMD OS with hemorrhage - improved s/p Avastin, but IRF OS today Wet/GA OD with SRF s/p Avastin OD - no fluid recurrence - PARQ Avastin OS Observe OD Call for decreased vision, increased distortion, increased pain, new floaters or flashing l ights Follow up: Return in about 6 weeks (around 03/13/2019). Chief Complaint: Follow-up visit AMD - Age-related macular degeneration HPI: Patient states that her vision is unchanged. No new floaters, distortions, or flashes of light. No occupation listed. 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, 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, [...] Blvd | | | | | | [place], [place] | | | | | | [address] | | | | | | [phone] | | | | | | | | +--------+---------+ + + + | 07/29/ | Office | Ophthalmology | Jeferson Villarreal MD | | | 2019 | Visit | | [address] | | | | | [address] | | | | | | [place], [place] | | | | | | [address] | | | | | | [phone] | | | | | | | | +--------+---------+ + + + documented as of this encounter Procedures + +--------+ + + + | Procedure Name | Priori | Date/Time | Associated Diagnosis | Comments | | | ty | | | | + +--------+ + + + | AVASTIN INJ - OS - | Routin | 01/30/2019 | Exudative | Results for this | [...] + | OCT, RETINA | Routin | 01/30/2019 | Nonexudative | Results for this | | | e | 11:39 AM | age-related macular | procedure are in the | | | | PDT | degeneration, | results section. | | | | | bilateral, | | | | | | intermediate dry | | | | | | stage | | + +--------+ + + + documented in this encounter Results AVASTIN INJECTION - OS - LEFT EYE (01/30/2019 11:56 AM PDT) + + + | [...] bevacizumab 1.25 mg/0.05 mL | | | [facility]: [id number] | | | Lot: [id number] | | | Expiration Date: 02/11/2019 | | | Route: intravitreal | | [...] | | + + + OCT, RETINA (01/30/2019 11:39 AM PDT) + + + | Narrative | Performed At | + + + | Gripper Installer | [facility] | | [facility]ation[facility] [...] + + | [facility] | [address] | [place] [address] | | | [facility] | Kristy. | [...] + | bevacizumab (AVASTIN) | Given | 01/31/20 | 1.25 mg | | Left Eye | | intravitreal injection 1.25 mg | | 19 11:56 | | | | | 1.25 mg, ONCE PRN (IPROC), 1 | | AM PDT | | | | | dose, Starting Mon01/30/19 at | | | | | | | 1156, Until Mon01/30/19 at 1156 | | | | | | + +--------+ +---------+------+ + +---+---+ | | | +---+---+ documented in this encounter"
--- OUTSIDE RECORDS SUMMARY | ~2020-05-06 | XMS | Encounter Summary ---
Demographics + + + | Address | [address] | | | [place] [address] | + + + | Home Phone | | + + + | Preferred Language | Unknown | + + + | Marital Status | | + + + | Zoroastrian Affiliation | NRP | + + + [...] [place] | | | | | [address] | | + + + + + Care Team Providers + +------+ + | Care Senior Project Manager Engineering Name | Role | Phone | + [...] | | | | | | [place] [address] | | | +--------+ + + + [...] [address] | | | | | | [place] | | | | | | [address] | | | | | | [phone] | | | | | | | | +--------+---------+ + + + | 07/29/ | Office | Ophthalmology | Jeferson Villarreal MD | | | 2019 | Visit | | [address] | | | | | | [address] | | | | | | [place] [place] | | | | | | [address] | | | | | | [phone] | | | | | | | | +--------+---------+ + + + documented as of this encounter Visit Diagnoses Not on filedocumented in this encounter"
--- OUTSIDE RECORDS SUMMARY | ~2020-05-06 | XMS | Encounter Summary ---
Demographics + + + | Address | [address] | | | [place] [address] | + + + | Home Phone | | + + + | Preferred Language | Unknown | + + + | Marital Status | | + + + | Roman Catholic Affiliation | NRP | + + [...] [place] | | | | | [address] | | + + + + + Care Team Providers + +------+ + | Care Audit Reviewer Name | Role | Phone | + +------+ + | Carlo Soto MD | PCP | | + +------+ + Encounter Details +--------+ + + + + | Date | Type | Department | Care Team | Description | +--------+ + + + + | 03/02/ | Document-Sc | Health Information | Unknown . | | | 2016 | anned | Services [address] | | | | | | [address] | | | | | | Mailcode: [id number] | | | | | | [facility] | | | | | | [place], [place] | | | | | | [address] | | | | | | [phone] | | | +--------+ + + + [...] [place] | | | | | | [address] | | | | | | [phone] | | | | | | | | +--------+---------+ + + + | 07/29/ | Office | Ophthalmology | Jeferson Villarreal MD | | | 2020 | Visit | | [address] | | | | | [address] | | | | | | [place], [place] | | | | | | [address] | | | | | | [phone] | | | | | | | | +--------+---------+ + + + documented as of this encounter Visit Diagnoses Not on filedocumented in this encounter"
--- OUTSIDE RECORDS SUMMARY | ~2020-05-06 | XMS | Encounter Summary ---
Demographics + + + | Address | [address] | | | [place] [address] | + + + | Home Phone | | + + + | Preferred Language | Unknown | + + + | Marital Status | | + + + | Buddhism Affiliation | NRP | + + + | Race | White | + + + | Ethnic Group | Not or | + + + Author + + + | Author | [facility] | + + + | Organization | [facility] | + + + | Address | Unknown | + + + | Phone | Unavailable | + + + Support + + + + + | Name | Relationship | Address | Phone | + + + + + | Andrzej Campos | ECON | [address] [facility] | | | | | [place] | | | | | [address] | | + + + + + Care Team Providers + +------+ + | Care Horse Shoer Name | Role | Phone | + [...] [place] | | | | | | [address] | | | +--------+ + + + [...] [place] | | | | | | [address] | | | | | | [phone] | | | | | | | | +--------+---------+ + + + | 07/29/ | Office | Ophthalmology | Jeferson Villarreal MD | | | 2019 | Visit | | [address] | | | | | | [address] | | | | | | [place], [place] | | | | | | [address] | | | | | | [phone] | | | | | | | | +--------+---------+ + + + documented as of this encounter Visit Diagnoses Not on filedocumented in this encounter"
--- OUTSIDE RECORDS SUMMARY | ~2020-05-06 | XMS | Encounter Summary ---
Demographics + + + | Address | [address] | | | [place] [address] | + + + | Home Phone | | + + + | Preferred Language | Unknown | + + + | Marital Status | | + + + | Confucianism Affiliation | NRP | + + + [...] [place] | | | | | [address] | | + + + + + Care Team Providers + +------+ + | Care Surgical Elastic Knitter Hand Frame Name | Role | Phone | + +------+ + | Carlo Soto MD | PCP | | + +------+ + Encounter Details +--------+--------+ + + + | Date | Type | Department | Care Team | Description | +--------+--------+ + + + | 06/27/ | Travel | | | | | [...] | | 2020 | Visit | | [address] | | | | | | [address] | | | | | | [place], [place] | | | | | | [address] | | | | | | [phone] | | | | | | | | +--------+---------+ + + + | 07/29/ | Office | Ophthalmology | Jeferson Villarreal MD | | | 2020 | Visit | | [address] | | | | | | [address] | | | | | | [place], [place] | | | | | | [address] | | | | | | [phone] | | | | | | | | +--------+---------+ + + + documented as of this encounter Visit Diagnoses Not on filedocumented in this encounter"
--- OUTSIDE RECORDS SUMMARY | ~2020-05-06 | XMS | Encounter Summary ---
Demographics + + + | Address | [address] | | | [place] [address] | + + + | Home Phone | | + + + | Preferred Language | Unknown | + + + | Marital Status | | + + + | Taoist Affiliation | NRP | + + + [...] [place] | | | | | [address] | | + + + + + Care Team Providers + +------+ + | Care Fire Code Inspector Name | Role | Phone | + [...] [place] | | | | | | [address] | | | | | | [phone] | | | | | | | | +--------+---------+ + + + | 07/29/ | Office | Ophthalmology | Jeferson Villarreal MD | | | 2020 | Visit | | [address] | | | | | [address] | | | | | | [place], [place] | | | | | | [address] | | | | | | [phone] | | | | | | | | +--------+---------+ + + + documented as of this encounter Visit Diagnoses Not on filedocumented in this encounter"
--- OUTSIDE RECORDS SUMMARY | ~2020-05-06 | XMS | Encounter Summary ---
Demographics + + + | Address | [address] | | | [place] [address] | + + + | Home Phone | | + + + | Preferred Language | Unknown | + + + | Marital Status | | + + + | Gnosticist Affiliation | NRP | + + + [...] [place] | | | | | [address] | | + + + + + Care Team Providers + +------+ + | Care Workforce Advisor Name | Role | Phone | [...] | | 2020 | Visit | | [address] | | | | | | [address] | | | | | | [place], [place] | | | | | | [address] | | | | | | [phone] | | | | | | | | +--------+---------+ + + + | 07/29/ | Office | Ophthalmology | Jeferson Villarreal MD | | | 2020 | Visit | | [address] | | | | | [address] | | | | | | [place], [place] | | | | | | [address] | | | | | | [phone] | | | | | | | | +--------+---------+ + + + documented as of this encounter Visit Diagnoses Not on filedocumented in this encounter"
--- OUTSIDE RECORDS SUMMARY | ~2020-05-06 | XMS | Encounter Summary ---
Demographics + + + | Address | [address] | | | [place] [address] | + + + | Home Phone | | + + + | Preferred Language | Unknown | + + + | Marital Status | | + + + | Zoroastrian Affiliation | NRP | + + + | Race | White | + + + | Ethnic Group | Not or | + + + Author + + + | Author | [facility] | + + + | Organization | [facility] | + + + | Address | Unknown | + + + | Phone | Unavailable | + + + Support + + + + + | Name | Relationship | Address | Phone | + + + + + | Andrzej Campos | ECON | [address] [facility] | | | | | [place] | | | | | [address] | | + + + + + Care Team Providers + +------+ + | Care Hospitality Services Manager Name | Role | Phone | [...] | | | | | | [place] [address] | | | +--------+--------+ + + + [...] [place] | | | | | | [address] | | | | | | [phone] | | | | | | | | +--------+---------+ + + + | 07/29/ | Office | Ophthalmology | Jeferson Villarreal MD | | | 2019 | Visit | | [address] | | | | | [address] | | | | | | [place], [place] | | | | | | [address] | | | | | | [phone] | | | | | | | | +--------+---------+ + + + documented as of this encounter Visit Diagnoses Not on filedocumented in this encounter"
--- OUTSIDE RECORDS SUMMARY | ~2020-05-06 | XMS | Encounter Summary ---
Demographics + + + | Address | [address] | | | [place] [address] | + + + | Home Phone [...] [place] | | | | | [address] | | + + + + + Care Team Providers + +------+ + | Care Fifth Grade Teacher Name | Role | Phone | [...] | | | | | | | [place], [place] | | | | | | | [address] | | | | | | | Phone: | | | | | | | [phone] | | | | | | | Fax: | | | | | | | [phone] | +--------+--------+ + + + + Encounter Details +--------+---------+ + + + | Date | Type | Department | Care Team | Description | +--------+---------+ + + + | 01/30/ | Office | [facility] | Jeferson Villarreal MD | Nonexudative | | 2019 | Visit | [place] [facility] | [address] | age-related macular | | | | Alex [address] | [address] | degeneration, | | | | [facility] | [place], [place] | bilateral, | | | | Clinic [place], | [address] | intermediate dry | | | | [place] [address] | [phone] | stage; Exudative | | | | [phone] | | age-related macular | | | [...] AM PDT [facility] Progress Note 01/30/2019 Assessment & Plan: 78 [...] Hx Examination: See Ophthalmology Module Attestations: The donor center technician, 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, [...] Blvd | | | | | | [place], [place] | | | | | | [address] | | | | | | [phone] | | | | | | | | +--------+---------+ + + + | 07/29/ | Office | Ophthalmology | Jeferson Villarreal MD | | | 2019 | Visit | | [address] | | | | | [address] | | | | | | [place], [place] | | | | | | [address] | | | | | | [phone] | | | | | | | [...] 1.25 mg/0.05 mL | | | [facility]: [id number] | | | Lot: [id number] | | | Expiration Date: 02/11/2019 | [...] Performed At | + + + | Support Staff | [facility] | | DocumentationRight EyeCentral [...] [facility] | [address] | [place] [address] | | | [place] | Kristy. | [...]
--- OUTSIDE RECORDS SUMMARY | ~2020-05-06 | XMS | Encounter Summary ---
Demographics + + + | Address | [address] | | | [place] [address] | + + + | Home Phone [...] Author | [facility] | + + + | Organization | [facility] | + + + | Address | Unknown | + + + | Phone | Unavailable | + + + Support + + + + + | Name | Relationship | Address | Phone | + + + + + | Andrzej Campos | ECON | [address] | | | | | [place] | | | | | [address] | | + + + + + Care Team Providers + +------+ + | Care Grinder Setup Operator Name | Role | Phone | [...] | | | | | | | [place], [place] | | | | | | | [address] | | | | | | | Phone: | | | | | | | [phone] | | | | | | | Fax: | | | | | | | [phone] | + +--------+ + + + + Encounter Details +--------+---------+ + + + | Date | Type | Department | Care Team | Description | +--------+---------+ + + + | 04/01/ | Office | [facility] | Jeferson Villarreal MD | Exudative | | 2020 | Visit | [facility] | [address] | age-related macular | | | | [address] | [address] | degeneration of left | | | | [facility] | [place], [place] | 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[place], | [address]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 | | | | [place] [address] | [phone] | neovascularization | | | | [phone] | | ([facility]); Exudative | | | | | | age-related macular | | | | | | degeneration of both | | | | | | eyes with active | | | | |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 | | | | | | neovascularization | | | | | | ([facility]) | +--------+---------+ + + + [...] Instructions Patient Instructions Jeferson Villarreal MD - 04/01/2020 11:00 AM PDTReturn before scheduled vi sit with decreasing vision, distortion, or new shower of floaters. documented in this encounter Progress Notes Jeferson Villarreal MD - 04/01/2020 11:00 AM PDT [facility] Progress Note 04/01/2020 Assessment & Plan: 79 y.o. 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 Increaased fluid while not coming in during Covid, no heme Wet/GA OD with resolved SRF, no recurrence PARQ Eylea OS Observe OD Call for decreased vision, increased distortion, increased pain, new floaters or flashing l ights Follow up: Return in about 4 weeks (around 04/29/2020). Chief Complaint: Follow-up visit AMD - Age-related [...] | | 2019 | Visit | | [address] | | | | [address] | | | | | | [place], [place] | | | | | | [address] | | | | | | [phone] | | | | | | | | +--------+---------+ + + + | 07/29/ | Office | Ophthalmology | Jeferson Villarreal MD | | | 2019 | Visit | | [address] | | | | | | [address] | | | | | | [place], [place] | | | | | | [address] | | | | | | [phone] | | | | | | | [...] neovascularization | | | | | | ([facility]) | | + +--------+ + [...] neovascularization | | | | | | ([facility]) | | + +--------+ + + + documented in this encounter Results EYLEA INJ - OS - LEFT EYE (04/01/2020 1:10 PM PDT) + + + | Narrative [...] 2 mg/0.05 mL syringe | | | [facility]: [id number], Lot: [id number], Expiration date: 07/06/2020 | | | Route: intravitreal, Site: Left [...] | | + + + OCT, RETINA (04/01/2020 11:32 AM PDT) + + + | Narrative | Performed At | + + + | Athletic Director | [facility] | | DocumentationRight EyeQuality: [...] | + + + + + | [facility] | [address] | [place] [address] | | | INSTITUTE | Kristy. | [...] + | aflibercept intravitreal | Given | 04/01/20 | 2 mg | | Left Eye | | injection 2 mg 2 mg, | | 20 1:10 | | | | | intravitreal, ONCE PRN (IPROC), 1 | | PM PDT | | | | | dose, Starting Mon04/01/20 at | | | | | | | 1310, Until Mon04/01/20 at 1310 | | | | | | + +--------+ +------+------+ + +---+---+ | | | +---+---+ documented in this encounter"
--- OUTSIDE RECORDS SUMMARY | ~2020-05-06 | XMS | Encounter Summary ---
Demographics + + + | Address | [address] | | | [place] [address] | + + + | Home Phone [...] + + + | Author | [facility] | + + + | Organization | [facility] | + + + | Address | Unknown | + + + | Phone | Unavailable | + + + Support + + + + + | Name | Relationship | Address | Phone | + + + + + | Andrzej Campos | ECON | [address] | | | | | [place] | | | | | [address] | | + + + + + Care Team Providers + +------+ + | Care Electronic Device Repairer Name | Role | Phone | + [...] | | | | | | | [place], [place] | | | | | | | [address] | | | | | | | Phone: | | | | | | | [phone] | | | | | | | Fax: | | | | | | | [phone] | + +--------+ + + + + Encounter Details +--------+---------+ + + + | Date | Type | Department | Care Team | Description | +--------+---------+ + + + | 04/01/ | Office | [facility] | Jeferson Villarreal MD | Exudative | | 2020 | Visit | [place] [facility] | [address] | age-related macular | | | | [address] | [address] | degeneration of left | | | | [facility] | [place], [place] | 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[place], | [address]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 | | | | [place] [address] | [phone] | neovascularization | | | | [phone] | | ([facility]); Exudative | | | | | | age-related macular | | | | | | degeneration of both | | | | | | eyes with active | | | | |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 | | | | | | neovascularization | | | | | | ([facility]) | +--------+---------+ + + + Social History [...] Villarreal MD - 04/01/2020 11:00 AM PDT [facility] Progress Note 04/01/2020 Assessment & Plan: 79 [...] [address] | | | | | | [place], [place] | | | | | | [address] | | | | | | [phone] | | | | | | | | +--------+---------+ + + + | 07/29/ | Office | Ophthalmology | Jeferson Villarreal MD | | | 2019 | Visit | | [address] | | | | | | [address] | | | | | | [place], [place] | | | | | | [address] | | | | | | [phone] | | | | | | | [...] neovascularization | | | | | | ([facility]) | | + +--------+ + + + [...] neovascularization | | | | | | ([facility]) | | + +--------+ + + + [...] 2 mg/0.05 mL syringe | | | [facility]: [id number], Lot: [id number], Expiration date: 07/06/2020 | | | Route: [...] Performed At | + + + | Grit Blaster | [facility]OL [facility]K | | DocumentationRight EyeQuality: [...] | + + + + + | [facility] | [address] | [place] [address] | | | INSTITUTE | Kristy. | [...]
--- OUTSIDE RECORDS SUMMARY | ~2020-05-06 | XMS | Encounter Summary ---
Demographics + + + | Address | [address] | | | [place] [address] | + + + | Home Phone | | + + + | Preferred Language | Unknown | + + + | Marital Status | | + + + | Orthodoxy Affiliation | NRP | + + + [...] [place] | | | | | [address] | | + + + + + Care Team Providers + +------+ + | Care Crop Specialist Name | Role | Phone | + [...] Refill Request | | 2016 | | [facility] | ,PhD [address] | ([place]) | | | | at [facility] [address] | Ave [place], [place] | | | | | Av Mailcode: [facility] | [address] | | | | | [facility] | [phone] | | | | | and [facility], | | | | | | Building | | | | | | [place], [place] | | | | | | [address] | | | | | | [phone] | | | +--------+--------+ + + + [...] | | 2020 | Visit | | [address] | | | | | | [address] | | | | | | [place], [place] | | | | | | [address] | | | | | | [phone] | | | | | | | | +--------+---------+ + + + | 07/29/ | Office | Ophthalmology | Jeferson Villarreal MD | | | 2020 | Visit | | [address] | | | | | | [address] | | | | | | [place] | | | | | | [address] | | | | | | [phone] | | | | | | | | +--------+---------+ + + + documented as of this encounter Visit Diagnoses Not on filedocumented in this encounter"
--- OUTSIDE RECORDS SUMMARY | ~2020-05-06 | XMS | Encounter Summary ---
Demographics + + + | Address | [address] | | | [place] [address] | + + + | Home Phone | | + + + | Preferred Language | Unknown | + + + | Marital Status | | + + + | Restoration Affiliation | NRP | + + + [...] [place] | | | | | [address] | | + + + + + Care Team Providers + +------+ + | Care Manager Commercial Name | Role | Phone | + [...] photography | | 2016 | Visit | [place] | | (OU) | | | | Photography at [facility] | | | | | | [address] | | | | | | Mailcode: CH11P | | | | | | [facility] | | | | | | and Healing, | | | | | | Building | | | | | | Floor [place], [place] | | | | | | [address] | | | | | | [phone] | | | +--------+ + + + [...] | | 2020 | Visit | | [address] | | | | | [address] | | | | | | [facility] [place] | | | | | | [address] | | | | | | [phone] | | | | | | | | +--------+---------+ + + + | 07/29/ | Office | Ophthalmology | Jeferson Villarreal MD | | | 2020 | Visit | | [address] | | | | | | [address] | | | | | | [place], [place] | | | | | | [address] | | | | | | [phone] | | | | | | | | +--------+---------+ + + + documented as of this encounter Visit Diagnoses + + | Diagnosis | + + | OHT (ocular hypertension), bilateral | + + documented in this encounter"
--- OUTSIDE RECORDS SUMMARY | ~2020-05-06 | XMS | Encounter Summary ---
Demographics + + + | Address | [address] | | | [place] [address] | + + + | Home Phone [...] [place] | | | | | [address] | | + + + + + Care Team Providers + +------+ + | Care Senior Interactive Producer Name | Role | Phone | + [...] | | 2020 | Visit | | [address] | | | | | | [address] | | | | | | [place], [place] | | | | | | [address] | | | | | | [phone] | | | | | | | | +--------+---------+ + + + | 07/29/ | Office | Ophthalmology | Jeferson Villarreal MD | | | 2020 | Visit | | [address] | | | | | | [address] | | | | | | [place], [place] | | | | | | [address] | | | | | | [phone] | | | | | | | | +--------+---------+ + + + documented as of this encounter Visit Diagnoses Not on filedocumented in this encounter"
--- OUTSIDE RECORDS SUMMARY | ~2020-05-06 | XMS | Encounter Summary ---
Demographics + + + | Address | [address] | | | [place] [address] | + + + | Home Phone | | + + + | Preferred Language | Unknown | + + + | Marital Status | | + + + | Christian Affiliation | NRP | + + + | Race | White | + + + | Ethnic Group | Not or | + + + Author + + + | Author | [facility] | + + + | Organization | [facility] | + + + | Address | Unknown | + + + | Phone | Unavailable | + + + Support + + + + + | Name | Relationship | Address | Phone | + + + + + | Andrzej Campos | ECON | [address] | | | | | [place] | | | | | [address] | | + + + + + Care Team Providers + +------+ + | Care Petroleum Inspector Name | Role | Phone | [...] | | | | | | | [address] | | | | | | | [address] | | | | | | | [place], [place] | | | | | | | [address] | | | | | | | Phone: | | | | | | | [phone] | | | | | | | Fax: | | | | | | | [phone] | +--------+--------+ + + + + Encounter Details +--------+---------+ + + + | Date | Type | Department | Care Team | Description | +--------+---------+ + + + | 05/02/ | Office | [facility] | Horace Tan MD | Nonexudative | | 2018 | Visit | [place] [facility] | [address] | age-related macular | | | | [facility] | [address] | degeneration, | | | | [facility] | [place], [place] | bilateral, | | | | Clinic [place], | [address] | intermediate dry | | | | [place] [address] | [phone] | stage; Exudative | | | | [phone] | | age-related macular | | | | | | degeneration of left | | | | | | eye with active | | | | |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 | | | | | | neovascularization | | | | | | ([facility]) | +--------+---------+ + + + Social [...] AM PDT [facility] Progress Note 05/02/2018 Assessment & Plan: 77 [...] file Examination: See Ophthalmology Module Attestations: The biological science technician fish, 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, is [...] | | | | | | [facility], [place] | | | | | | [address] | | | | | | [phone] | | | | | | | | +--------+---------+ + + + | 07/29/ | Office | Ophthalmology | Horace Tan MD | | | 2019 | Visit | | [address] | | | | | [address] | | | | | | [place], [place] | | | | | | [address] | | | | | | [phone] | | | | | | | [...] neovascularization | | | | | | ([facility]) | | + +--------+ + + [...] bevacizumab 1.25 mg/0.05 mL | | | [facility]: [id number] | | | Lot: [id number] | | | Expiration Date: 06/19/2018 | [...] Performed At | + + + | Mobile Equipment Servicer | [facility] | | DocumentationRight EyeCentral [...] + + | [facility] | [address] | [place] [address] | | | [place] | Kristy. | [...]
--- OUTSIDE RECORDS SUMMARY | ~2020-05-06 | XMS | Encounter Summary ---
Demographics + + + | Address | [address] | | | [place] [address] | + + + | Home Phone [...] [place] | | | | | [address] | | + + + + + Care Team Providers + +------+ + | Care Batch Room Technician Name | Role | Phone | [...] | | | | | | | [address] | | | | | | | [address] | | [address] | | | | | | | [place], [place] | | | | | | | [address] | | | | | | | Phone: | | | | | | | [phone] | | | | | | | Fax: | | | | | | | [phone] | +--------+--------+ + + + + Encounter Details +--------+---------+ + + + | Date | Type | Department | Care Team | Description | +--------+---------+ + + + | 03/28/ | Office | [facility] | Horace Tan MD | Exudative | | 2018 | Visit | [place] [facility] | [address] | age-related macular | | | | Alex [facility] [address] | [address] | degeneration of left | | | | [facility] | [place], [place] | 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[place], | [address]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 | | | | [place] [address] | [phone] | neovascularization | | | | [phone] | | ([facility]) (Primary Dx); | | | | | [...] Tan MD - 03/28/2018 10:30 AM PDT [facility] Progress Note 03/28/2018 Assessment & Plan: 77 [...] file Examination: See Ophthalmology Module Attestations: The news gathering technician, 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, [...] Blvd | | | | | | [place], [place] | | | | | | [address] | | | | | | [phone] | | | | | | | | +--------+---------+ + + + | 07/29/ | Office | Ophthalmology | Horace Tan MD | | | 2019 | Visit | | [address] | | | | | [address] | | | | | | [place], [place] | | | | | | [address] | | | | | | [phone] | | | | | | | [...] 1.25 mg/0.05 mL | | | [facility]: [id number] | | | Lot: [id number]) | | | Expiration Date: [...] Performed At | + + + | Facility Examiner | [facility] | | DocumentationRight EyeCentral [...] [facility] | [address] | [place] [address] | | | INSTITUTE | Kristy. | | | + + + + + HEATHER FLORES (03/28/2018 10:49 AM PDT) + + + | Narrative | Performed At | + + + | Facility Examiner | CESAR[facility]NE [facility] | | DocumentationRight EyeCentral [...] + + + + | [facility] | [address] | [place] [address] | | | INSTITUTE | Kristy. | [...]
--- OUTSIDE RECORDS SUMMARY | ~2020-05-06 | XMS | Encounter Summary ---
Demographics + + + | Address | [address] | | | [place] [address] | + + + | Home Phone [...] [place] | | | | | [address] | | + + + + + Care Team Providers + +------+ + | Care Senior Trainer Name | Role | Phone | + +------+ + | Carlo Soto MD | PCP | | + +------+ + Encounter Details +--------+ + + + + | Date | Type | Department | Care Team | Description | +--------+ + + + + | 03/16/ | Telephone | [facility] | Jeferson Villarreal MD | | | 2015 | | [facility] | [address] | | | | | [address] | [address] | | | | | [address] | [place], [place] | | | | | [facility] [place] | [address] | | | | | floor [place], [place] | [phone] | | | | | [address] 433- [phone] | | | +--------+ + + + [...] [place] | | | | | | [address] | | | | | | [phone] | | | | | | | | +--------+---------+ + + + | 07/29/ | Office | Ophthalmology | Jeferson Villarreal MD | | | 2020 | Visit | | [address] | | | | | [address] | | | | | | [place], [place] | | | | | | [address] | | | | | | [phone] | | | | | | | | +--------+---------+ + + + documented as of this encounter Visit Diagnoses Not on filedocumented in this encounter"
--- OUTSIDE RECORDS SUMMARY | ~2020-05-06 | XMS | Encounter Summary ---
Demographics + + + | Address | [address] | | | [place] [address] | + + + | Home Phone [...] + + + | Author | [facility] | + + + | Organization | [facility] | + + + | Address | Unknown | + + + | Phone | Unavailable | + + + Support + + + + + | Name | Relationship | Address | Phone | + + + + + | Andrzej Campos | ECON | [address] | | | | | [place] | | | | | [address] | | + + + + + Care Team Providers + +------+ + | Care Spinneret Cleaner Name | Role | Phone | + +------+ + | Carlo Soto MD | PCP | | + +------+ + Reason for Visit + + + | Reason | Comments | + + + | SLT - selective | left eye | | laser | | | trabeculoplasty | | + + + Encounter Details +--------+ + + + + | Date | Type | Department | Care Team | Description | +--------+ + + + + | 06/03/ | Procedure | [facility] | Gail Peralta, | SLT - selective | | 2015 | | [facility] | ,PhD [address] | laser | | | | at [facility] [address] | [address] [facility] [place] | trabeculoplasty | | | | Av [facility]: [facility] | [phone] | (left eye) | | | | [facility] | [phone] | | | | | and Healing, | | | | | | Building | | | | | | [place], [place] | | | | | | [address] | | | | | | [phone] | | | +--------+ + + + [...] encounter Progress Notes Gail Peralta MD,PhD - 06/03/2016 12:44 PM PDTFormatting of this note might be differen t from the original. Assessment Glaucoma Clinic Note: 06/03/2016 Glaucoma Diagnosis: Referred by: Doretha Farley Bradt POAG OU HPI: Tonya Suresh is a 75 y.o. female 5 month follow up - seen by Dr Farley - IOP still borderline and recent VF showing progres chirag. Here for SLT OS today. Vision worsening a bit - got new glasses since last here - feel s not helping much, more than likely is related to macula. Now on cosopt and brimonidine - t olerating well. Eye medications: Cosopt 2x/day OU - 8:00am Brimonidine 2x/day OU - 8:00am ATs prn OU Current Medication List Name Sig BRIMONIDINE 0.2 % EYE DROPS Instill 1 drop into both eyes two times daily. GENTEAL GEL OPHT Instill in eye as needed. CHLOR-TRIMETON ORAL Take by mouth as needed. DICLOFENAC POTASSIUM 50 MG TABLET Take 50 [...] 20 MG CAPSULE,DELAYED RELEASE Take by mouth. EYE VITAMIN AND MINERALS ORAL Take 1 tablet by mouth once daily. [employer] Capsules Glaucoma summary: Referred in 2016 at age 75 for OHT and POAG on near MMT Other ocular diagnoses: Pseudovitteliform Ocular procedures: OD OS None SLT 06/03/2016 (ST) OD OS Max IOP 29 29 Pachymetry [...] of gall bladder Allergies: Miacalcin; Red dye; Zyrtec; and Cephalexin Pt reports that she has never smoked. She has never used smokeless tobacco. She reports th at she drinks about 4.2 oz of alcohol per week. She reports that she does not use illicit dr hunter. Examination Mental status: Alert and oriented x 3 VAsc VAph sc VAcc VAph cc OD 20/60 -2 NI OS 20/70 -2 NI I, SHERIE DOE, performed, reviewed and revised the above history, medications, allergie s, as well as performed the following elements noted in the Base Ophthalmology Exam : visual acuity, IOP. Motility: Ortho in primary gaze, full OU Slit lamp Exam IOP: OD 17, OS 17 by Applanation at 12:58 PM. Right Left Gonioscopy (01/08/2016) C35f 2+ptm [...] and endothelium, unless otherwise noted. Fundus exam Right Left Disc Normal 0.75 Normal 0.7 Macula cuticular drusen, vitelliform material (depigmented), RPE mottling, atrophy. No hem orrohage or fluid cuticular drusen, vitelliform material (depigmented), RPE mottling, atroph y. 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 POAG OS>OD - IOPs improved on MMT and just above target IOP OU. Relatively stable visua l grady x 2 years. SLT a good option to try to reach target IOP. Proceed with SLT OS today. 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 Early cataracts OU SLT OS today Continue current IOP lowering regimen IOP check locally with Dr. Farley in 2 month (if IOP response to SLT OS is reasonable, the n call to make appointment for SLT OD here at [facility]) STL Procedure note: I discussed options for treating glaucoma, indications for SLT, prognosis, overview of SLT procedure, alternatives including options/goals, and risks including but not limited to loss of vision. The patient was given a chance to ask questions. Consent Signed: Yes Orders: Iopidine Laser: SLT Anesthesia: Proparacaine topical Parameters: Power: 0.8 mJ Number: [id number] Area treated: 360' Outcome: Well tolerated Complications: None Specimens: None IOP check at 1 hour: 18 mmHg Gail Peralta MD, PhD [employer] Ophthalmology Glaucoma Service [facility] [place] documented in th is encounter Plan of Treatment +--------+---------+ + + + | Date | Type | Specialty | Care Team | Description | +--------+---------+ + + + | 06/17/ | Office | Ophthalmology | Jeferson Villarreal MD | | | 2019 | Visit | | [address] | | | | [address] | | | | | | [place], [place] | | | | | | [address] | | | | | | [phone] | | | | | | | | +--------+---------+ + + + | 07/29/ | Office | Ophthalmology | Jeferson Villarreal MD | | | 2019 | Visit | | [address] | | | | | [address] | | | | | | [place], [place] | | | | | | [address] | | | | | | [phone] | | | | | | | | +--------+---------+ + + + documented as of this encounter Procedures + +--------+ + + + | Procedure Name | Priori | Date/Time | Associated Diagnosis | Comments | | | ty | | | | + +--------+ + + + | AL LASER SURGERY OF | Routin | 06/03/2016 | Primary open angle | | | EYE | e | 2:03 PM | glaucoma of both | | | | | PDT | eyes, moderate stage | | | | | | Bilateral ocular | | | | | | hypertension | | + +--------+ + + + | AL LASER SURGERY OF | Routin | 06/03/2016 | Primary open angle | | | EYE | e | 2:03 PM | glaucoma of both | | | | | PDT | eyes, moderate stage | | | | | | Bilateral ocular | | | | | | hypertension | | + +--------+ + + + documented in this encounter Visit Diagnoses + + | Diagnosis | + + | Primary open angle glaucoma of both eyes, moderate stage - Primary | + + | Cataract, nuclear sclerotic, both eyes Senile nuclear sclerosis | + + | 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
--- OUTSIDE RECORDS SUMMARY | ~2020-05-06 | XMS | Encounter Summary ---
Demographics + + + | Address | [address] | | | [place] [address] | + + + | Home Phone | | + + + | Preferred Language | Unknown | + + + | Marital Status | | + + + | Scientology Affiliation | NRP | + + + [...] [place] | | | | | [address] | | + + + + + Care Team Providers + +------+ + | Care Assistant Men'S Lacrosse Coach Name | Role | Phone | + [...] | | | | | | | [place], [place] | | | | | | | [address] | | | | | | | Phone: | | | | | | | [phone] | | | | | | | Fax: | | | | | | | [phone] | +--------+--------+ + + + + Encounter Details +--------+---------+ + + + | Date | Type | Department | Care Team | Description | +--------+---------+ + + + | 05/29/ | Office | [facility] | Jeferson Villarreal MD | Nonexudative | | 2019 | Visit | [place] [facility] | [address] | age-related macular | | | | Alex [address] | [address] | degeneration, | | | | [facility] | [place], [place] | bilateral, | | | | [facility] [place], | [address] | intermediate dry | | | | [place] [address] | [phone] | stage; Exudative | | | | [phone] | | age-related macular | | | [...] PM PDT [facility] Progress Note 05/29/2019 Assessment & Plan: [address] | | | | | | [place], [place] | | | | | | [address] | | | | | | [phone] | | | | | | | | +--------+---------+ + + + | 07/29/ | Office | Ophthalmology | Jeferson Villarreal MD | | | 2020 | Visit | | [address] | | | | | [address] | | | | | | [place], [place] | | | | | | [address] | | | | | | [phone] | | | | | | | [...] mg/0.05 mL | | | [facility]: [id number] | | | Lot: [id number] | | | Expiration Date: 02/05/2020 | [...] At | + + + | Supervisor Water Treatment Plant | [facility] | | DocumentationRight EyeCentral [...] + + | [facility] | [address] | [place] [address] | | | [facility] | [place]y. | [...]
--- OUTSIDE RECORDS SUMMARY | ~2020-05-06 | XMS | Encounter Summary ---
Demographics + + + | Address | [address] | | | [place] [address] | + + + | Home Phone [...] [place] | | | | | [address] | | + + + + + Care Team Providers + +------+ + | Care Appliance Installer Name | Role | Phone | + [...] | | | | | | | [place], [place] | | | | | | | [address] | | | | | | | Phone: | | | | | | | [phone] | | | | | | | Fax: | | | | | | | [phone] | + +--------+ + + + + Encounter Details +--------+---------+ + + + | Date | Type | Department | Care Team | Description | +--------+---------+ + + + | 04/29/ | Office | [facility] | Jeferson Villarreal MD | Exudative | | 2020 | Visit | [place] [facility] | [address] | age-related macular | | | | [place] [address] | [address] | degeneration of left | | | | [facility] | [place], [place] | 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, | [address]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 | | | | [place] [address] | [phone] | neovascularization | | | | [phone] | | ([facility]); Exudative | | | | | | age-related macular | | | | | | degeneration of both | | | | | | eyes with active | | | | |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 | | | | | | neovascularization | | | | | | ([facility]) | +--------+---------+ + + + Social [...] Villarreal MD - 04/29/2020 2:30 PM PDT [facility] Progress Note 04/29/2020 Assessment & Plan: [...] [address] | | | | | | [place], [place] | | | | | | [address] | | | | | | [phone] | | | | | | | | +--------+---------+ + + + | 07/29/ | Office | Ophthalmology | Jeferson Villarreal MD | | | 2020 | Visit | | [address] | | | | | [address] | | | | | | [place], [place] | | | | | | [address] | | | | | | [phone] | | | | | | | [...] | | | | | | ([facility]) | | + +--------+ + + [...] | | | | | | ([facility]) | | + +--------+ + + [...] 2 mg/0.05 mL syringe | | | [facility]: 59304-503-81, Lot: [id number], Expiration date: 09/05/2020 | | | Route: [...] Performed At | + + + | Learning Technologies Specialist | [facility] | | DocumentationRight [...] | + + + + + | [facility] | [address] | [place] [address] | | | INSTITUTE | Kristy. | [...]
--- OUTSIDE RECORDS SUMMARY | ~2020-05-06 | XMS | Encounter Summary ---
Demographics + + + | Address | [address] | | | [place] [address] | + + + | Home Phone [...] + + + | Author | [facility] | + + + | Organization | [facility] | + + + | Address | Unknown | + + + | Phone | Unavailable | + + + Support + + + + + | Name | Relationship | Address | Phone | + + + + + | Andrzej Campos | ECON | [address] | | | | | [place] | | | | | [address] | | + + + + + Care Team Providers + +------+ + | Care Surfacer Operator Name | Role | Phone | + +------+ + | Carlo Soto MD | PCP | | + +------+ + Encounter Details +--------+ + + + + | Date | Type | Department | Care Team | Description | +--------+ + + + + | 08/27/ | Document-Sc | Health Information | Unknown . | | | 2016 | anned | Services [address] | | | | | [address] | | | | | | Mailcode: [id number] | | | | | | [facility] | | | | | | [place], [place] | | | | | | [address] | | | | | | [phone] | | | +--------+ + + + [...] [place] | | | | | | [address] | | | | | | [phone] | | | | | | | | +--------+---------+ + + + | 07/29/ | Office | Ophthalmology | Jeferson Villarreal MD | | | 2020 | Visit | | [address] | | | | | [address] | | | | | | [place], [place] | | | | | | [address] | | | | | | [phone] | | | | | | | | +--------+---------+ + + + documented as of this encounter Visit Diagnoses Not on filedocumented in this encounter"
--- OUTSIDE RECORDS SUMMARY | ~2020-05-06 | XMS | Encounter Summary ---
Demographics + + + | Address | [address] | | | [place] [address] | + + + | Home Phone | | + + + | Preferred Language | Unknown | + + + | Marital Status | | + + + | Sikhism Affiliation | NRP | + + + [...] [place] | | | | | [address] | | + + + + + Care Team Providers + +------+ + | Care Employee Communications Specialist Name | Role | Phone | [...] | | | | | | | [address] | | | | | | | [address] | | | | [address] | | | | | | | [place], [place] | | | | | | | [address] | | | | | | | Phone: | | | | | | | [phone] | | | | | | | Fax: | | | | | | | [phone] | + +--------+ + + + + Encounter Details +--------+---------+ + + + | Date | Type | Department | Care Team | Description | +--------+---------+ + + + | 11/13/ | Office | [facility] | Jeferson Villarreal MD | Exudative | | 2020 | Visit | [place] [facility] | [address] | age-related macular | | | | [facility] | [address] | degeneration of left | | | | [facility] | [place], [place] | 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[place], | [address]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 | | | | [place] [address] | [phone] | neovascularization | | | | [phone] | | ([facility]); Exudative | | | | | | age-related macular | | | | | | degeneration of both | | | | | | eyes with active | | | | |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 | | | | | | neovascularization | | | | | | ([facility]) | +--------+---------+ + + + [...] AM PST [facility] Progress Note 11/13/2019 Assessment & Plan: [address] [...] [address] | | | | | | [place], [place] | | | | | | [address] | | | | | | [phone] | | | | | | | | +--------+---------+ + + + | 07/29/ | Office | Ophthalmology | Jeferson Villarreal MD | | | 2019 | Visit | | [address] | | | | | | [address] | | | | | | [place], [place] | | | | | | [address] | | | | | | [phone] | | | | | | | [...] [facility]: [id number], Lot: [id number], Expiration date: 10/05/2020 | | | Route: [...] Performed At | + + + | Nursing Assistants Teacher | [facility] | | Documentation[facility] [...] [facility] | [address] | [place] [address] | | | [facility] | Kristy. | [...]
--- OUTSIDE RECORDS SUMMARY | ~2020-05-06 | XMS | Encounter Summary ---
Demographics + + + | Address | [address] | | | [place] [address] | + + + | Home Phone [...] [place] | | | | | [address] | | + + + + + Care Team Providers + +------+ + | Care Regional Sales Trainer Name | Role | Phone | [...] | | | | | | | [place], [place] | | | | | | | [address] | | | | | | | Phone: | | | | | | | [phone] | | | | | | | Fax: | | | | | | | [phone] | +--------+--------+ + + + + Encounter Details +--------+---------+ + + + | Date | Type | Department | Care Team | Description | +--------+---------+ + + + | 01/11/ | Office | [facility] | Horaec Tan MD | Nonexudative | | 2017 | Visit | [place] [facility] | [address] | age-related macular | | | | [address] | [address] | degeneration, | | | | [facility] | [place], [place] | bilateral, | | | | [facility] [place], | [address] | intermediate dry | | | | [place] [address] | [phone] | stage (Primary Dx) | | | | [phone] | | | +--------+---------+ + + + [...] Tan MD - 01/11/2017 1:15 PM PST [facility] Progress Note 01/11/2017 Assessment & Plan: [...] here. Pt has been followi ng with mixer operator hot metal. Consistent with glaucoma drops. Physician HPI: Following [...] Cancer. Examination: See Ophthalmology Module Attestations: The air moving technician, 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, [...] Blvd | | | | | | [facility], [place] | | | | | | [address] | | | | | | [phone] | | | | | | | | +--------+---------+ + + + | 07/29/ | Office | Ophthalmology | Horace Tan MD | | | 2019 | Visit | | [address] | | | | | | [address] | | | | | | [facility], [place] | | | | | | [address] | | | | | | [phone] | | | | | | | | +--------+---------+ + + + documented as of this encounter Visit Diagnoses + + | Diagnosis | + + | Nonexudative age-related macular degeneration, bilateral, intermediate dry stage - | | Primary | + + documented in this encounter"
--- OUTSIDE RECORDS SUMMARY | ~2020-05-06 | XMS | Encounter Summary ---
Demographics + + + | Address | [address] | | | [place] [address] | + + + | Home Phone | | + + + | Preferred Language | Unknown | + + + | Marital Status | | + + + | Jehovah'S Witness Affiliation | NRP | + + + [...] [place] | | | | | [address] | | + + + + + Care Team Providers + +------+ + | Care Hardware Supplies Sales Representative Name | Role | Phone | [...] [place] | | | | | | [address] | | | | | | [phone] | | | | | | | | +--------+---------+ + + + | 07/29/ | Office | Ophthalmology | Jeferson Villarreal MD | | | 2020 | Visit | | [address] | | | | | | [address] | | | | | | [place], [place] | | | | | | [address] | | | | | | [phone] | | | | | | | | +--------+---------+ + + + documented as of this encounter Visit Diagnoses Not on filedocumented in this encounter"
--- OUTSIDE RECORDS SUMMARY | ~2020-05-06 | XMS | Encounter Summary ---
Demographics + + + | Address | [address] | | | [place] [address] | + + + | Home Phone | | + + + | Preferred Language | Unknown | + + + | Marital Status | | + + + | Tenriism Affiliation | NRP | + + + [...] [place] | | | | | [address] | | + + + + + Care Team Providers + +------+ + | Care Rib Matcher And Fitter Name | Role | Phone | + [...] | | | | | | | [place], [place] | | | | | | | [address] | | | | | | | Phone: | | | | | | | [phone] | | | | | | | Fax: | | | | | | | [phone] | +--------+--------+ + + + + Encounter Details +--------+---------+ + + + | Date | Type | Department | Care Team | Description | +--------+---------+ + + + | 05/17/ | Office | [facility] | Horace Tan MD | Nonexudative | | 2017 | Visit | [place] [facility] | [address] | age-related macular | | | | [address] | [address] | degeneration, | | | | [facility] | [place], [place] | bilateral, | | | | Clinic [place], | [address] | intermediate dry | | | | [place] [address] | [phone] | stage (Primary Dx) | | | | [phone] | | | +--------+---------+ + + + [...] time!) Fix your gaze on the black tlingit & haida in the center of the grid. Use [...] PM PDT [facility] Progress Note 05/17/2017 Assessment & Plan: 76 [...] file Examination: See Ophthalmology Module Attestations: The home service technician, under the supervision of the [...] | | 2019 | Visit | | [address] | | | | | | [address] | | | | | | [place], [place] | | | | | | [address] | | | | | | [phone] | | | | | | | | +--------+---------+ + + + | 07/29/ | Office | Ophthalmology | Horace Tan MD | | | 2019 | Visit | | [address] | | | | | | [address] | | | | | | [facility], [place] | | | | | | [address] | | | | | | [phone] | | | | | | | | +--------+---------+ + + + documented as of this encounter Visit Diagnoses + + | Diagnosis | + + | Nonexudative age-related macular degeneration, bilateral, intermediate dry stage - | | Primary | + + documented in this encounter"
--- OUTSIDE RECORDS SUMMARY | ~2020-05-06 | XMS | Encounter Summary ---
Demographics + + + | Address | [address] | | | [place] [address] | + + + | Home Phone | | + + + | Preferred Language | Unknown | + + + | Marital Status | | + + + | Denominational Affiliation | Unknown | + + + | Race | Unknown | + + + | Ethnic Group | Unknown | + + + Author + + + | Author | [facility] | | | and [place] | + + + | Organization | [facility] | | | and [place] | + + + | Address | Unknown | + + + | Phone | Unavailable | + + + Support + + + + + | Name | Relationship | Address | Phone | + + + + + | Allan Campos | ECON | [address] | | | | | [place] | | | | | [address] | | + + + + + Care Team Providers + +------+ + | Care Electro Optical Engineer Name | Role | Phone | + +------+ + PCP | Unavailable | + +------+ + Encounter Details +--------+ + + + + | Date | Type | Department | Care Team | Description | +--------+ + + + + | 08/06/ | Hospital | [facility] | | | | 2001 | Encounter | MED [facility] XRAY [address] | | | | | | [address] | | | | | | [place] [address] | | | | | | [phone] | | | +--------+ + + + [...] as of this encounter Plan of Treatment Not on filedocumented as of this encounter Visit Diagnoses Not on filedocumented in this encounter"
--- OUTSIDE RECORDS SUMMARY | ~2020-05-06 | XMS | Encounter Summary ---
Demographics + + + | Address | [address] | | | [place] [address] | + + + | Home Phone | | + + + | Preferred Language | Unknown | + + + | Marital Status | | + + + | Buddhism Affiliation | NRP | + + + | Race | White | + + + | Ethnic Group | Not or | + + + Author + + + | Author | [facility] | + + + | Organization | [facility] | + + + | Address | Unknown | + + + | Phone | Unavailable | + + + Support + + + + + | Name | Relationship | Address | Phone | + + + + + | Andrzej Campos | ECON | [address] | | | | | [place] | | | | | [address] | | + + + + + Care Team Providers + +------+ + | Care Certified Orthotist/Pedorthist Name | Role | Phone | + [...] + | 10/28/ | Hospital | [address] | Kelli Enamorado MD | | | 2015 | Encounter | [address] | [address] | | | | | [address] [place] [address] | Katelyn Mckeon [place], | | | | | [place], [place] | [place] [address] | | | | | [address] | [phone] | | | | | [phone] | | | +--------+ + + + [...] After hours, weekends, and holidays, call Hospital Atomic Spectroscopist at [phone]. Ask to have y our doctor paged. [...] | | 2020 | Visit | | [address] | | | | | | [address] | | | | | | [place], [place] | | | | | | [address] | | | | | | [phone] | | | | | | | | +--------+---------+ + + + | 07/29/ Office | Ophthalmology | Jeferson Villarreal MD | | | 2020 | Visit | | [address] | | | | | | [address] | | | | | | [place], [place] | | | | | | [address] | | | | | | [phone] | | | | | | | [...] | | | | | PERC | LACTATION COORDINATOR(S): Dr. Enamorado, | | | | | [...] | | + +---------+ + + | [facility] DEPARTMENT OF | | | | | RADIOLOGY | | | | + +---------+ + + SURGICAL PATHOLOGY (10/28/2015) + + + + + + | Component | Value | Ref Range | Performed | Pathologist | | | | | At | Signature | + + + + + + | SURGICAL | THIS IS AN AMENDED | | [facility] | | | PATHOLOGY | REPORT SOURCE [...] | + + + + + | [facility] | [address] | [place] [address] | | | PATHOLOGY | [address] | | | + + + + + documented in this encounter Visit Diagnoses Not on filedocumented in this encounter
--- OUTSIDE RECORDS SUMMARY | ~2020-05-06 | XMS | Encounter Summary ---
Demographics + + + | Address | [address] | | | [place] [address] | + + + | Home Phone [...] [place] | | | | | [address] | | + + + + + Care Team Providers + +------+ + | Care Equipment Operator/Laborer Name | Role | Phone | + [...] Care Questions | | 2019 | | [facility] | [address] | | | | | [facility] | [address]y | | | | | [place], [place] | [place], [place] | | | | | [address] | [address] | | | | | [phone] | [phone] | | | | | | | [...] Wagner | | | | | | [place], [place] | | | | | | [address] | | | | | | [phone] | | | | | | | | +--------+---------+ + + + | 07/29/ | Office | Ophthalmology | Jeferson Villarreal MD | | | 2020 | Visit | | [address] | | | | | | [address] | | | | | | [place] | | | | | | [address] | | | | | | [phone] | | | | | | | | +--------+---------+ + + + documented as of this encounter Visit Diagnoses Not on filedocumented in this encounter"
--- OUTSIDE RECORDS SUMMARY | ~2020-05-06 | XMS | Encounter Summary ---
Demographics + + + | Address | [address] | | | [place] [address] | + + + | Home Phone [...] Author + + + | Author | [facility] | + + + | Organization | [facility] | + + + | Address | Unknown | + + + | Phone | Unavailable | + + + Support + + + + + | Name | Relationship | Address | Phone | + + + + + | Andrzej Campos | ECON | [address] [facility] | | | | | [place] | | | | | [address] | | + + + + + Care Team Providers + +------+ + | Care Game Technician Name | Role | Phone | [...] - selective | | 2015 | | [facility] | ,PhD [address] | laser | | | | at [facility] [address] | Ave [facility] [place] | trabeculoplasty | | | | Av Mailcode: [facility] | [address] | (left eye) | | | | [facility] | [phone] | | | | | and Healing, | | | | | | Building | | | | | | [place], [place] | | | | | | [address] | | | | | | [phone] | | | +--------+ + + + [...] make appointment for SLT OD here at [facility]) [facility] Procedure note: I discussed options for [...] hour: 18 mmHg Gail Peralta MD, PhD Tripoler of Ophthalmology Glaucoma Service [facility] [place] documented in th is encounter Plan of Treatment +--------+---------+ + + + | Date | Type | Specialty | Care Team | Description | +--------+---------+ + + + | 06/17/ | Office | Ophthalmology | Jeferson Villarreal MD | | | 2019 | Visit | | [address] | | | | | | [address] | | | | | | [place], [place] | | | | | | [address] | | | | | | [phone] | | | | | | | | +--------+---------+ + + + | 07/29/ | Office | Ophthalmology | Jeferson Villarreal MD | | | 2019 | Visit | | [address] | | | | | | [address] | | | | | | [place], [place] | | | | | | [address] | | | | | | [phone] | | | | | | | | +--------+---------+ + + + documented as of this encounter Procedures + +--------+ + + + | Procedure Name | Priori | Date/Time | Associated Diagnosis | Comments | | | ty | | | | + +--------+ + + + | MA LASER SURGERY OF | Routin | 06/03/2016 | 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
--- OUTSIDE RECORDS SUMMARY | ~2020-05-06 | XMS | Encounter Summary ---
Demographics + + + | Address | [address] | | | [place] [address] | + + + | Home Phone [...] [place] | | | | | [address] | | + + + + + Care Team Providers + +------+ + | Care Camera Repair Technician Name | Role | Phone | [...] | Bone lesion | [place], | [facility] [address] | | | | | Procedures | [address] | Nael Lee | | | | | CT BIOPSY | Yash Ríos | Katelyn CARMICHAEL | | | | | BONE DEEP | [place], [place] | [facility], | | | | | PERC AND | [address] | 10th Floor | | | | | NEEDLE PLCMT | Phone: | [place], [place] | | | | | [place] [address] SCAN | [phone] | [address] | | | | | FOR NEEDLE | Fax: | Phone: | | | | | BIOPSY [place] | [phone] | [phone] | | | | | BONE | | Fax: | | | | | BIOPSY,TROCA | | [phone] | | | | | R/NEEDLE | | | | | | | DEEP | | | +--------+--------+ + + + + Encounter Details +--------+ + + + + | Date | Type | Department | Care Team | Description | +--------+ + + + + | 10/19/ | Skate Hop | Orthopaedics at | Isadora Benavides, | Bone lesion (Primary | | 2014 | | [facility] [address] | MD [address] | Dx) | | | | [address] | [facility] [place] | | | | | Mailcode: [id number] | [address] | | | | | [facility] | [phone] | | | | | [place], [place] | | | | | | [address] | | | | | | [phone] | | | +--------+ + + + [...] [address] | | | | | | [place], [place] | | | | | | [address] | | | | | | [phone] | | | | | | | | +--------+---------+ + + + | 07/29/ | Office | Ophthalmology | Jeferson Villarreal MD | | | 2020 | Visit | | [address] | | | | | [address] | | | | | | [place], [place] | | | | | | [address] | | | | | | [phone] | | | | | | | | +--------+---------+ + + + documented as of this encounter Visit Diagnoses + + | Diagnosis | + + | Bone lesion - Primary Disorder of bone and cartilage, unspecified | + + documented in this encounter"
--- OUTSIDE RECORDS SUMMARY | ~2020-05-06 | XMS | Encounter Summary ---
Demographics + + + | Address | [address] | | | [place] [address] | + + + | Home Phone [...] [place] | | | | | [address] | | + + + + + Care Team Providers + +------+ + | Care Emd Special Education Teacher Name | Role | Phone | [...] | | | | | | | [place], [place] | | | | | | | [address] | | | | | | | Phone: | | | | | | | [phone] | | | | | | | Fax: | | | | | | | [phone] | + +--------+ + + + + Encounter Details +--------+---------+ + + + | Date | Type | Department | Care Team | Description | +--------+---------+ + + + | 01/01/ | Office | [facility] | Pete Hazel MD | Exudative | | 2019 | Visit | [facility] | [address] | age-related macular | | | | Alex [address] | [address] | degeneration of both | | | | [facility] | [place], [place] | eyes with active | | | | Clinic [place], | [address]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 | | | | [place] [address] | [phone] | neovascularization | | | | [phone] | | ([facility]) (Primary Dx) | +--------+---------+ + + + [...] Hazel MD - 01/01/2020 11:00 AM PST [facility] Progress Note 01/01/2020 IMPRESSION/PLAN: 79 y.o. [...] on these findings - [facility] . Return in about 8 weeks [...] Normal Normal Periphery Normal Normal Attestations: The speech therapist technician, 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, [...] | | | | | | [place], [place] | | | | | | [address] | | | | | | [phone] | | | | | | | | +--------+---------+ + + + | 07/29/ Office | Ophthalmology | Jeferson Villarreal MD | | | 2019 | Visit | | [address] | | | | | | [address] | | | | | | [place], [place] | | | | | | [address] | | | | | | [phone] | | | | | | | [...] aflibercept 2 mg/0.05 mL | | | [facility]: 96995-511-69, Lot: [id number], Expiration date: 10/25/2020 | | | Route: [...] 2 mg/0.05 mL | | | NDC: 43633-811-93, Lot: [id number], Expiration date: 10/25/2020 | | | Route: [...] Performed At | + + + | Floor Covering Layer | [facility] | | DocumentationRight EyeQuality: [...] [facility] | [address] | [place] [address] | | | [place] | [place]. | [...]
--- OUTSIDE RECORDS SUMMARY | ~2020-05-06 | XMS | Encounter Summary ---
Demographics + + + | Address | [address] | | | [place] [address] | + + + | Home Phone [...] HOSPITAL | | | | | [place] | | | | | [address] | | + + + + + Care Team Providers + +------+ + | Care Client Care Consultant Name | Role | Phone | + [...] | | 2020 | Visit | | [address] | | | | | | [address] | | | | | | [place], [place] | | | | | | [address] | | | | | | [phone] | | | | | | | | +--------+---------+ + + + | 07/29/ | Office | Ophthalmology | Jeferson Villarreal MD | | | 2020 | Visit | | [address] | | | | | | [address] | | | | | | [place], [place] | | | | | | [address] | | | | | | [phone] | | | | | | | | +--------+---------+ + + + documented as of this encounter Visit Diagnoses Not on filedocumented in this encounter"
--- OUTSIDE RECORDS SUMMARY | ~2020-05-06 | XMS | Encounter Summary ---
Demographics + + + | Address | [address] | | | [place] [address] | + + + | Home Phone | | + + + | Preferred Language | Unknown | + + + | Marital Status | | + + + | Adventist Affiliation | NRP | + + + [...] [place] | | | | | [address] | | + + + + + Care Team Providers + +------+ + | Care Briquette Molder Name | Role | Phone | + [...] | | | | | | | [place], [place] | | | | | | | [address] | | | | | | | Phone: | | | | | | | [phone] | | | | | | | Fax: | | | | | | | [phone] | +--------+--------+ + + + + Encounter Details +--------+---------+ + + + | Date | Type | Department | Care Team | Description | +--------+---------+ + + + | 06/27/ | Office | [facility] | Stefani, Miller T, | Exudative | | 2019 | Visit | [facility] | [address] | age-related macular | | | | Alex [address] | [address] | degeneration of both | | | | [facility] | [place], [place] | eyes with active | | | | Clinic [place], | [address]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 | | | | [place] [address] | [phone] | neovascularization | | | | [phone] | | ([facility]) (Primary Dx) | +--------+---------+ + [...] might be different fr om the original. [facility] Progress Note 06/27/2019 Assessment & Plan: 78 [...] Capsules Examination: See Ophthalmology Module Attestations: The combination technician, 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, [...] | | 2019 | Visit | | [address] | | | | | | [address] | | | | | | [place], [place] | | | | | | [address] | | | | | | [phone] | | | | | | | | +--------+---------+ + + + | 07/29/ | Office | Ophthalmology | Jeferson Villarreal MD | | | 2020 | Visit | | [address] | | | | | | [address] | | | | | | [place], [place] | | | | | | [address] | | | | | | [phone] | | | | | | | [...] | | | | | ([facility]) | | + +--------+ + [...] aflibercept 2 mg/0.05 mL | | | [facility]: 20433-850-65 | | | Lot: [id number] | | | Expiration Date: 03/05/2020 | [...] Performed At | + + + | Document Reviewer | [facility] | | Documentation[facility] [...] | + + + + + | [facility] | [address] | [place] [address] | | | INSTITUTE | [place]. | [...]
--- OUTSIDE RECORDS SUMMARY | ~2020-05-06 | XMS | Encounter Summary ---
Demographics + + + | Address | [address] | | | [place] [address] | + + + | Home Phone [...] [place] | | | | | [address] | | + + + + + Care Team Providers + +------+ + | Care Mortgage Advisor Name | Role | Phone | + +------+ + | Carlo Soto MD | PCP | | + +------+ + Reason for Visit + + + | Reason | Comments | + + + | Refill Request | timolol - denied refills from Dr. Farley | + + + Encounter Details +--------+--------+ + + + | Date | Type | Department | Care Team | Description | +--------+--------+ + + + | 01/26/ | Refill | [facility] | Gail Peralta, | Refill Request | | 2017 | | [facility] | ,PhD [address] | (timolol - denied | | | | at [facility] [address] | [place], [place] | refills from | | | | [place] Mailcode: CH11P | [address] | Miguelito) | | | | [facility] | [phone] | | | | | and [facility], | | | | | | [facility] | | | | | | [place], [place] | | | | | | [address] | | | | | | [phone] | | | +--------+--------+ + + + [...] [address] | | | | | | [place], [place] | | | | | | [address] | | | | | | [phone] | | | | | | | | +--------+---------+ + + + | 07/29/ | Office | Ophthalmology | Jeferson Villarreal MD | | | 2019 | Visit | | [address] | | | | | | [address] | | | | | | [place], [place] | | | | | | [address] | | | | | | [phone] | | | | | | | | +--------+---------+ + + + documented as of this encounter Visit Diagnoses Not on filedocumented in this encounter"
--- OUTSIDE RECORDS SUMMARY | ~2020-05-06 | XMS | Encounter Summary ---
Demographics + + + | Address | [address] | | | [place] [address] | + + + | Home Phone [...] [place] | | | | | [address] | | + + + + + Care Team Providers + +------+ + | Care Supply Chain Generalist Name | Role | Phone | + [...] Refill Request | | 2017 | | [facility] | ,PhD [address] | (timolol - denied | | | | at [facility] [address] | [place], [place] | refills from | | | | [place] Mailcode: CH11P | [address] | Miguelito) | | | | [facility] | [phone] | | | | | and [facility], | | | | | | [facility] | | | | | | [place], [place] | | | | | | [address] | | | | | | [phone] | | | +--------+--------+ + + + [...] [address] | | | | | | [place], [place] | | | | | | [address] | | | | | | [phone] | | | | | | | | +--------+---------+ + + + | 07/29/ | Office | Ophthalmology | Jeferson Villarreal MD | | | 2019 | Visit | | [address] | | | | | | [address] | | | | | | [place], [place] | | | | | | [address] | | | | | | [phone] | | | | | | | | +--------+---------+ + + + documented as of this encounter Visit Diagnoses Not on filedocumented in this encounter"
[~2020-05-06 18:54] MED LIST changes: +ERYTHROMYCIN1 GM OS
[2020-05-06] MEDS ORDERED: LOSARTAN POTASS25 MG PO (19:12)
[2020-05-06] MEDS ORDERED: COMBIGAN EYE DRO5 ML OD (19:12)
[2020-05-06] MEDS ORDERED: CIPRO500 MG PO (20:07)
[2020-05-06] MEDS ORDERED: PYRIDIUM200 MG PO (20:07)
== END 2020-05-06 20:16 | disposition home or self-care (01) ==
LOC: ED 18:54
DX: N39.0 Urinary tract infection, site not specified (principal); E03.9 Hypothyroidism, unspecified; Z88.1 Allergy status to other antibiotic agents; Z91.02 Food additives allergy status; Z88.8 Allergy status to other drugs, medicaments and biological substances; Z79.899 Other long term (current) drug therapy
CPT/HCPCS: 81001; 99283